=== PATIENT | female | born 1950 | race Caucasian/White ===

== ENCOUNTER 2022-09-28 10:45 | Inpatient (IN) | payer MEDICARE, OTHER ==
[~2022-09-28] VITALS: Ht 170.2 cm; Wt 83.0 kg
[2022-09-28] MEDS ORDERED: ACET-2267 PO (11:11)
[2022-09-28] MEDS ORDERED: SUCR1TAB PO (11:11)
[2022-09-28] MEDS ORDERED: MELO7.5T46 PO (11:11)
[2022-09-28] MEDS ORDERED: NF-ZOL12.5 PO (11:11)
[2022-09-28] MEDS ORDERED: CITA40TA13 PO (11:11)
[2022-09-28] MEDS ORDERED: LOPE-175 PO (11:11)
[2022-09-28] MEDS ORDERED: CNC1KV IM (11:11)
[2022-09-28] MEDS ORDERED: TRAM50TA3 PO (11:11)
[2022-09-28] MEDS ORDERED: FERR-74 PO (11:11)
[2022-09-28] MEDS ORDERED: ALPR1TAB7 PO (11:11)
[2022-09-28] MEDS ORDERED: NALO4SPR NS (11:11)
[2022-09-28] MEDS ORDERED: OMEP40CA6 PO (11:11)
[2022-09-28] MEDS ORDERED: ATOR40TA70 PO (11:11)
[2022-09-28] MEDS ORDERED: GBPN600T PO (11:11)
[2022-09-28] MEDS ORDERED: ONDA4TAB11 SL (11:11)
[2022-09-28] MEDS ORDERED: DOCU100C37 PO (11:11)
[2022-09-28] MEDS ORDERED: CHOL200074 PO (11:11)
[2022-09-28] MEDS ORDERED: ASPI-1238 PO (11:11)
[2022-09-28] MEDS ORDERED: HYDR-3817 PO (11:11)
[2022-09-28] MEDS ORDERED: MONT-40 PO (11:11)
[2022-09-28] MEDS ORDERED: TIZA-186 PO (11:11)
[2022-09-28] MEDS ORDERED: MTP25TSR PO (11:11)
--- NOTE | 2022-09-28 12:40 | PM&R Post Admission Assessment ---
PM&R Date of Visit: Sep 28, 2022 Time of Visit: 18:00 History of Present Illness Chief complaint: Right hip replacement HPI: This is a 72-year-old female who presented to inpatient rehab following a slow recovery following right hip replacement by Dr. Acuna. Patient has a history of irritable bowel syndrome and she has had abdominal distention since surgery. She is having a lot of pain and having very slow recovery because of that pain. We will monitor lung status due to history of asthma. She has not had a BM yet. Home meds will be restarted. Past Omsudph-Bmksry-Ybsjfh Hx Past Med/Social Hx: Reviewed Nursing Past Med/Soc Hx, Reviewed and Corrections made Patient Social History Marrital Status: single Employed/Student: retired Alcohol Use: Denies Use Smoking Status: Never a Smoker Past Medical History Surgeries: Orthopedic Respiratory: Asthma Gastrointestinal: Irritable Bowel Musculoskeletal: Arthritis Psychosocial: Depression PM&R Allergy/Meds/Data Review Allergies Coded Allergies: No Allergy Information Available (Unverified , 09/28/22) Home Medications Scheduled Alprazolam (Alprazolam), 1 MG PO HS, (Reported) Aspirin (Aspirin EC), 81 MG PO DAILY, (Reported) Atorvastatin Calcium (Atorvastatin Calcium), 40 MG PO DAILY, (Reported) Cholecalciferol (Vitamin D3) (Vitamin D3), 50 MCG PO DAILY, (Reported) Citalopram Hydrobromide (Citalopram HBr), 40 MG PO DAILY, (Reported) Cyanocobalamin (Cyanocobalamin Injection), 1,000 MCG IM MONTHLY, (Reported) Ferrous Sulfate (Ferrous Sulfate), 325 MG PO DAILY, (Reported) Gabapentin (Gabapentin), 600 MG PO TID, (Reported) Hydrocodone/Acetaminophen (Hydrocodone-Acetamin 7.5-325), 1 EACH PO Q6H, (Reported) Meloxicam (Meloxicam), 7.5 MG PO BIDPC, (Reported) Metoprolol Succinate (Metoprolol Succinate), 25 MG PO DAILY, (Reported) Montelukast Sodium (Montelukast Sodium), 10 MG PO HS, (Reported) Omeprazole (Omeprazole), 40 MG PO DAILY, (Reported) Sucralfate (Sucralfate), 1 GM PO QID, (Reported) Tizanidine HCl (Tizanidine HCl), 4 MG PO TID, (Reported) Zolpidem Tartrate (Zolpidem Tartrate ER), 12.5 MG PO HS, (Reported) Scheduled PRN Acetaminophen (Tylenol Extra Strength), 500 MG PO Q4H PRN for PAIN-MILD (1-4) OR TEMPATURE, (Reported) Docusate Sodium (Docusate Sodium), 100 MG PO BID PRN for CONSTIPATION-1ST LINE, (Reported) Loperamide HCl (Imodium A-D), 4 MG PO Q6H PRN for DIARRHEA, (Reported) Naloxone HCl (Narcan), 1 SPRAY NS UD PRN for OPIOID OVERDOSE, (Reported) Ondansetron (Ondansetron Odt), 4 MG SL Q8H PRN for NAUSEA/VOMITING-1ST LINE, (Reported) Tramadol HCl (Tramadol HCl), 50-100 MG PO Q6H PRN for PAIN-MODERATE (5-7), (Reported) Current Medications Current Medications Reviewed Review of Systems Constitutional: see HPI, malaise, weakness Gastrointestinal: constipation Musculoskeletal: joint pain Physical Exam Physical Exam Vital Signs Capillary Refill : Height, Weight, BMI Height: '" Weight: lbs. oz. kg; BMI Method: General Appearance: No Apparent Distress, WD/WN, Chronically ill Eyes: Bilateral Eye Normal Inspection, Bilateral Eye PERRL HEENT: PERRL/EOMI, Normal ENT Inspection, Pharynx Normal Neck: Full Range of Motion, Normal Inspection, Non Tender, Supple, Carotid Bruit Respiratory: Chest Non Tender, Lungs Clear, Normal Breath Sounds, No Accessory Muscle Use, No Respiratory Distress Cardiovascular: Regular Rate, Rhythm, No Edema, No Gallop, No JVD, No Murmur, Normal Peripheral Pulses Gastrointestinal: Normal Bowel Sounds, No Organomegaly, No Pulsatile Mass, Non Tender, Soft Back: Normal Inspection, No CVA Tenderness, No Vertebral Tenderness Extremity: Normal Capillary Refill, Normal Inspection, Normal Range of Motion (Limited range of motion right leg), Non Tender, No Calf Tenderness, No Pedal Edema Neurologic/Psychiatric: Alert, Oriented x3, No Motor/Sensory Deficits, Normal Mood/Affect, Abnormal Gait, Motor Weakness ( right leg weakness) Skin: Normal Color, Warm/Dry Lymphatic: No Adenopathy PM&R Medical Assessment & Plan REHAB/MEDICAL ASSESSMENT AND PLAN: REHAB IMPAIRMENT GROUP: Right hip replacement slow recovery ETIOLOGIC DIAGNOSIS: right hip replacement slow recovery The comorbidities that impact the patients function and/or functional outcome by: slow recovery, increased pain, asthma, IBS REHAB PLAN: The patient is being admitted to our comprehensive inpatient rehabilitation facility and can tolerate the intensity of service consisting of at least: 180 minutes of therapy a day, 5 out of 7 days a week Rehab treatment will consist of: PT and OT will focus on regaining function with use of assistive devices in order to regain independence in ADLs and ambulation in order to go home The patient/family has a good understanding of our discharge process and will benefit from an interdisciplinary inpatient rehabilitation program. The patient has potential to make improvement and is in need of at least two of the following multidisciplinary therapies including but not limited to physical, occupational, speech, and prosthetics and orthotics. Additionally the patient will need services from respiratory, nutritional services, wound care, psychology, etc. (Customize this to each patient). Given the patients complex condition and risk of further medical complications, rehabilitation services cannot be safely or effectively provided at a lower level of care such as a group home facility. BARRIERS TO DISCHARGE: slow recovery and pain ESTIMATED LOS: 7 days DISPOSITION: home RELEVANT CHANGES SINCE PREADMISSION SCREENING: I have compared the patients medical and functional status at the time of the preadmission screening and there are: no changes PROGNOSIS: good REHABILITATION GOALS: 1. PT and OT will focus on regaining function with use of assistive devices in order to regain independence in ADLs and ambulation in order to go home All the above goals were reviewed with the patient and he/she is in agreement. By signing this document, I acknowledge that I have personally performed a full physical examination on this patient within 24 hours of admission to this inpatient rehabilitation facility and have determined the patient to be able to tolerate the above course of treatment at an intensive level for a reasonable period of time. I will be completing a detailed individualized Plan of Care for this patient by day #4 of the patients stay based upon the Preadmission Screen, the Post-Admission Evaluation, and the therapy evaluations. Admission Dx/Comorbidities: (1) Status post right hip replacement ICD Codes: Z96.641 - Presence of right artificial hip joint Assessment/Plan Assessment and Plan Assess & Plan/Chief Complaint Assessment: Status post right hip replacement Hospital Irritable bowel syndrome with flare Postop constipation Slow recovery due to pain Depression Postop acute blood loss anemia Plan: Supportive care Pain control Home meds PT and OT SHANNAN CALZADA DO Sep 28, 2022 12:39
[2022-09-28] MEDS ORDERED: DOCUSATE SODIUM 100 MG (COLACE) CAP PO PRN ×2 (12:45→16:15)
[2022-09-28] MEDS ORDERED: diphenhydrAMINE 25 MG TAB (BENADRYL) PO PRN (12:45)
[2022-09-28] MEDS ORDERED: MELATONIN 3 MG TABLET PO PRN (12:45)
[2022-09-28] MEDS ORDERED: ONDANSETRON 4 MG (ZOFRAN) ORAL DISSOLVE TAB PO PRN (12:45)
[2022-09-28] MEDS ORDERED: ALPRAZolam 0.25 MG (XANAX) TAB PO PRN (12:45)
[2022-09-28] MEDS ORDERED: FLEET ENEMA ADULT 1 EA BTL PR PRN (12:45)
[2022-09-28] MEDS ORDERED: BISACODYL 10 MG SUPP (DULCOLAX) PR PRN (12:45)
[2022-09-28] MEDS ORDERED: LOPERAMIDE 2 MG (IMODIUM) TABLET PO PRN ×2 (12:45→16:15)
[2022-09-28] MEDS ORDERED: ACETAMINOPHEN 325 MG TABLET PO PRN (12:45)
[2022-09-28] MEDS ORDERED: CALCIUM CARBONATE 500 MG (TUMS) TAB.CHEW PO PRN (12:45)
[2022-09-28] MEDS ORDERED: guaiFENesin/CODEINE (ROBITUSSIN AC) 10ML UDC PO PRN (12:45)
[2022-09-28 14:15] VITALS: BP 95/54
--- OUTSIDE RECORDS SUMMARY | 2022-09-28 14:38 | XMS REPORT | Summary of Care ---
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 Plant Operator Name Role Phone Carlos Simpson MD PCP Reason for Visit * Auth/Cert (Routine) Diagnoses / Procedures Referred By Contact Referred To Conta ct Specialty Diagnoses Avascular necrosis Unilateral primary osteoarthritis, right hip Procedures SC ARTHRP ACETBLR/PROX FEM PROSTC AGRFT/ALGRFT HIP ARTHROPLASTY TOTAL ANTERIOR APPROACH Johnson Acuna MD [address] [place] [address] [facility] Main Operating Room [address] [facility] [place] [address] Perioperative Referral ID Status Reason Start Date Expiration Visits Vi sits Date Requested Authorized [id number] 1 1 Encounter Details Care Team Description Date Type Department Johnson Acuna MD [address] [facility] [place] [phone] Arrived 09/27/2022 [facility] Specialty Hos pital Encounter [facility] Radiology [address] [facility] [place] [phone] Allergies Comments Active Allergy Reactions Severity Noted Date Iodine Hives High 05/04/2013 documented as of this encounter (statuses as of 09/28/2022) Medications End Date Status Medication Sig Dispensed Refills Start Date Suspended ALPRAZolam (XANAX) 1 mg Take 1 mg by 0 tablet mouth daily at bedtime. Suspended citalopram (CeleXA) 40 mg Take 40 mg by 0 tablet mouth daily. Suspended atorvastatin (LIPITOR) 40 Take 40 mg by 0 mg tablet mouth daily. Suspended montelukast (SINGULAIR) Take 10 mg by 0 10 mg tablet mouth daily at bedtime. Suspended metoprolol succinate Take 25 mg by 0 (TOPROL XL) 25 mg mouth daily. Extended Release 24 hour tablet Suspended ferrous sulfate 325 mg Take 325 mg 0 (65 mg iron) tablet by mouth daily. Suspended naloxone (NARCAN) 4 EMERGENCY USE 2 Each 3 01/31 mg/spray [place], ONLY: 1 Non-Aerosol Administer 1 spray (4 mg) in one nostril one time. May repeat in alternating nostrils every 2-3 min until responsive or EMS arrives. Additional Information Suspended tiZANidine 4 mg tablet Take 4 mg by 0 06/09/ 02 mouth 3 times 2 daily. Suspended ondansetron (ZOFRAN ODT) Take 1 Tablet 30 Tablet 0 4 mg Tablet, Rapid (4 mg) by 3 Dissolve mouth every 8 hours as needed for Nausea/Emesis . Dissolve tablet on top of tongue, then swallow with saliva. Additional Information Suspended meloxicam (MOBIC) 15 mg Take 15 mg by 0 tablet mouth daily. 3 Suspended omeprazole (PriLOSEC) 40 Take 40 mg by 0 06/21 mg Capsule, Delayed mouth daily. 3 Release(E.C.) Suspended sucralfate (CARAFATE) 1 Take 1 Gram 0 gram tablet by mouth 4 3 times daily. Suspended zolpidem (AMBIEN) 10 mg Take 12.5 mg 0 tablet by mouth 3 daily at bedtime. Suspended traMADoL (ULTRAM) 50 mg Take 50 mg by 0 tablet mouth every 6 3 hours as needed. Suspended gabapentin (NEURONTIN) Take 600 mg 0 06/06/ 02 600 mg tablet by mouth 3 3 times daily. Suspended docusate sodium 100 mg Take 100 mg 0 capsule by mouth 2 times daily as needed. Suspended cyanocobalamin, vitamin by Injection 0 B-12, (VITAMIN B-12 route every INJECTION) 30 days. Suspended mupirocin (BACTROBAN) 2% Apply with 22 Gram 0 0 Ointment q-tip inside 3 both sides of the nose twice a day for the seven days leading up to surgery. Additional Information Suspended HYDROcodone-acetaminophen Take 1 Tablet 0 (NORCO) 7.5-325 mg Tablet by mouth 3 every 6 hours. Suspended cholecalciferol (vitamin Take 2,000 0 D3) 50 mcg (2,000 unit) Units by tablet mouth daily. Suspended loperamide 2 mg tablet Take 4 mg by 0 mouth every 6 hours as needed for Diarrhea/Loos e Stools. Suspended acetaminophen (TYLENOL) Take 500 mg 0 500 mg tablet by mouth every 4 hours as needed for Pain, Mild / Temperature. documented as of this encounter (statuses as of 09/28/2022) Active Problems Problem Noted Date Polypharmacy 09/26/2021 Syncope 09/24/2021 Avascular necrosis 09/24/2021 Acute cystitis without hematuria 02/14/2021 Multiple falls 02/14/2021 Right shoulder pain 02/14/2021 Bilateral hip pain 02/14/2021 Impaired mobility and ADLs 02/14/2021 Generalized muscle weakness 02/14/2021 Arthritis 02/14/2021 documented as of this encounter (statuses as of 09/28/2022) Immunizations Name Administration Dates Next Due INFLUENZA VACCINE 02/17/2021 QUADRIVALENT 6 MOS UP PF IM documented as of this encounter Social History Date Tobacco Use Types Packs/Day Years Used Smoking Tobacco: Former Smokeless Tobacco: Never Comments Alcohol Use Standard Drinks/Week No 0 (1 standard drink = 0.6 o z pure alcohol) Sex Assigned at Date Recorded Not on file Date Recorded COVID-19 Exposure Response 09/27/2022 3:38 PM CDT In the last 10 days, have you been in contact with N o / Unsure someone who was confirmed or suspected to have Coronavirus/COVID-19? documented as of this encounter Last Filed Vital Signs Not on filedocumented in this encounter Plan of Treatment Care Team Description Date Type Specialty Johnson Acuna MD [address] [place] [id number] 10/13/2022 Office Visit Orthopedic Surgery Health Maintenance Due Date Last Done Comments DTAP/TDAP/TD VACCINES (1 01/26/1968 - Tdap) Traditional Medicare 01/26/1968 (ACO) Annual Wellness Visit COLORECTAL SCREENING 1994 Colorectal Cancer 1994 Screening FIT-DNA Q 3 years 1994 FIT/FOBT Q 1 year 1994 Flex Sig/CT Colonography 1994 Q 5 years ZOSTER VACCINE (1 of 2) 1999 OSTEOPOROSIS SCREENING 2014 PNEUMOCOCCAL VACCINE 65+ 2014 YEARS (1 - PCV) INFLUENZA VACCINE (#1) 2021 02/17/2021 BREAST CANCER SCREENING 06/22/2023 06/21/2022, 12/23/2013, 07/29/2012 documented as of this encounter Medical Devices Device Identifier Shelf Expiration Date Model / Serial / L ot Implanted Type Area Manufactur er [id number] 06/12/2026 6570-0-736 / / [id number] Head Fem V40 Biolox Delta Hip Right: Hip STRY KER- 6570-0-736 - [id number] ORTHOPAEDI Implanted: Qty: 1 on 09/27/2022 by Johnson Hansen MD at [facility] [id number] 05/28/2027 [id number] / / [id number] Screw Trident 2 6.5x20mm Lprfl Hex Screw Right: Hip [place]- 6143-8725 - [id number] ORTHOPAEDI Implanted: Qty: 1 on 09/27/2022 by Johnson Hansen MD at [facility] documented as of this encounter Procedures Comments Procedure Name Priority Date/Time Associated Diag nosis XR HIP 2 OR 3 VIEWS RT Routine 09/27/2022 General ized pain 3:18 PM CDT documented in this encounter Results * XR HIP 2 OR 3 VIEWS RT (09/27/2022 3:18 PM CDT) Modality Anatomical Region Laterality Computed Radiography Lower Extremity Anatomical Location / Laterality Collection Method / Volume Angelique ection Time Received Time Specimen (Source) 09/27/2022 3:33 PM CDT Impressions 09/27/2022 3:33 PM CDT Impression: Postoperative changes from total hip arthroplasty without complication or fracture. Electronically Signed By: Gustavo Liang MD, Signed On: 09/27/2022 3:33 PM, FRANCOIS Narrative 09/27/2022 3:33 PM CDT EXAM: Two views of the right hip. INDICATIONS: Post hip arthroplasty. COMPARISON: Earlier same day FINDINGS: AP and crosstable lateral views. There are postoperative changes from total hip arthroplasty. Associated postoperative soft tissue gas. Hardware is properly positioned. No fracture or dislocation. Visualized pelvis is unremarkable. Chronic left total hip arthroplasty. Procedure Note Masood Liang MD - 09/27/2022 EXAM: Two views of the right hip. INDICATIONS: Post hip arthroplasty. COMPARISON: Earlier same day FINDINGS: AP and crosstable lateral views. There are postoperative changes from total hip arthroplasty. Associated postoperative soft tissue gas. Hardware is properly positioned. No fracture or dislocation. Visualized pelvis is unremarkable. Chronic left total hip arthroplasty. Impression: Postoperative changes from total hip arthroplasty without complication or fracture. Electronically Signed By: Gustavo Liang MD, Signed On: 09/27/2022 3:33 PM, FRANCOIS Johnson Carmona DI[facility]AG[facility] ORDERABL TRENT Acuna MD documented in this encounter Visit Diagnoses Diagnosis Laboratory procedure - Primary Laboratory examination, unspecified Generalized pain documented in this encounter Insurance Type Payer Benefit Subscriber ID Effective Phone Address Plan / Dates Group Medicare MEDICARE MEDICARE [id number] 2013- [phone] PART A AND Present B Supplemental [employer] [id number] 2020-P [phone] [address] [place] [address] documented as of this encounter Advance Directives For more information, please contact: [phone] Date Inactivated Comments Code Status Date Activated Full Code 09/27/2022 2:54 PM Date Inactivated Comments Code Status Date Activated 09/27/2022 2:54 PM Full Code 09/27/2022 10:32 AM 09/26/2021 7:14 PM Full Code 09/24/2021 12:02 PM 02/17/2021 7:41 PM Full Code 02/14/2021 2:26 PM Care Teams Start Date End Date Slurry Plant Operator Relationship Specialty 12/31/14 Carlos Simpson MD PCP - General Family [address] [place] [address] documented as of this encounter
--- OUTSIDE RECORDS SUMMARY | 2022-09-28 14:38 | XMS REPORT | Summary of Care ---
Author Author [employer] [facility] Address Unknown Phone Unavailable Care Team Providers Care Health Companion Name Role Phone Carlos Simpson MD PCP Reason for Visit * Auth/Cert (Routine) Diagnoses / Procedures Referred By Contact Referred To Conta ct Specialty Diagnoses Avascular necrosis Unilateral primary osteoarthritis, right hip Procedures [place] ARTHRP ACETBLR/PROX FEM PROSTC AGRFT/ALGRFT HIP ARTHROPLASTY TOTAL ANTERIOR APPROACH Johnson Acuna MD [address] [place] [phone] [facility] Main Operating Room [address] [facility] [place] [address] Perioperative Referral ID Status Reason Start Date Expiration Visits Vi sits Date Requested Authorized [id number] 1 1 Encounter Details Care Team Description Date Type Department Johnson Acuna MD [address] [facility] [place] [phone] Arrived 09/27/2022 [facility] Specialty Hos pital Encounter [facility] Radiology [address] [facility] [place] [phone] Allergies Comments Active [...] EMERGENCY USE 2 Each 3 01/31 mg/spray [place], ONLY: 1 Non-Aerosol Administer 1 spray (4 [...] Description Date Type Specialty Johnson Acuna MD [address] [place] [phone] 10/13/2022 Office Visit Orthopedic Surgery Health Maintenance [...] L ot Implanted Type Area Manufactur er [id number] 06/12/2026 6570-0-736 / / [id number] Head Fem V40 Biolox Delta Hip Right: Hip STRY KER- 6570-0-736 - [id number] ORTHOPAEDI Implanted: Qty: 1 on 09/27/2022 by Johnson Hansen MD at [facility] [id number] 05/28/2027 [id number] / / [id number] Screw Trident 2 6.5x20mm Lprfl Hex Screw Right: Hip [place]- [id number] - [id number] ORTHOPAEDI Implanted: Qty: 1 on 09/27/2022 by Johnson Hansen MD at [facility] documented as of this encounter Procedures Comments Procedure Name Priority Date/Time Associated Diag nosis XR PELVIS 1 OR 2 VW Routine 09/27/2022 Generalize d pain 3:17 PM CDT documented in this encounter Results * XR PELVIS 1 OR 2 VW (09/27/2022 3:17 PM CDT) Modality Anatomical Region Laterality Computed Radiography Pelvis Anatomical Location / Laterality Collection Method / Volume Angelique ection Time Received Time Specimen (Source) 09/27/2022 3:31 PM CDT Impressions 09/27/2022 3:31 PM CDT IMPRESSION: Postoperative changes from right total hip arthroplasty without fracture or complication. Electronically Signed By: Gustavo Liang MD, Signed On: 09/27/2022 3:31 PM, CHELEILIGato Narrative 09/27/2022 3:31 PM CDT EXAM: Single view pelvis INDICATIONS: Intraoperative imaging during total hip arthroplasty COMPARISON: No priors. Findings: Sequential AP views of the pelvis during right total hip arthroplasty with 11 images submitted. Hardware is appropriately positioned. No fracture or dislocation. Postsurgical soft tissue gas within the soft tissues. Chronic left total hip arthroplasty. Procedure Note Masood Liang MD - 09/27/2022 EXAM: Single view pelvis INDICATIONS: Intraoperative imaging during total hip arthroplasty COMPARISON: No priors. Findings: Sequential AP views of the pelvis during right total hip arthroplasty with 11 images submitted. Hardware is appropriately positioned. No fracture or dislocation. Postsurgical soft tissue gas within the soft tissues. Chronic left total hip arthroplasty. IMPRESSION: Postoperative changes from right total hip arthroplasty without fracture or complication. Electronically Signed By: Gustavo Liang MD, Signed On: 09/27/2022 3:31 PM, FRANCOIS Johnson Carmona DIAGNOSTIC IMAGING ORDERABL TRENT Acuna MD documented in this encounter Visit Diagnoses Diagnosis Generalized pain documented in this encounter Insurance Type Payer Benefit Subscriber ID Effective Phone Address Plan / Dates Group Medicare MEDICARE MEDICARE [id number] 2013- [phone] PART A AND Present B Supplemental [employer] [id number] 2020-P [address] [place] [address] documented as of this encounter Advance Directives For more information, please contact: [phone] Date Inactivated Comments Code Status Date Activated Full Code 09/27/2022 2:54 PM Date Inactivated Comments Code Status Date Activated 09/27/2022 2:54 PM Full Code 09/27/2022 10:32 AM 09/26/2021 7:14 PM Full Code 09/24/2021 12:02 PM 02/17/2021 7:41 PM Full Code 02/14/2021 2:26 PM Care Teams Start Date End Date Health Companion Relationship Specialty 12/31/14 Carlos Simpson MD PCP - General Family [address] [place] [address] documented as of this encounter
--- OUTSIDE RECORDS SUMMARY | 2022-09-28 14:38 | XMS REPORT | Summary of Care ---
Author Author [employer] Address Unknown Phone Unavailable Care Team Providers Care Offset Assistant Press Operator Name Role Phone Carlos Simpson MD PCP Encounter Details Care Team Description Date Type Department Johnson Acuna MD [address] [place] [address] Arrived 09/06/2022 [facility] Pre Admission Encounter Testing [address] [place] [address] Allergies Comments Active Allergy Reactions Severity Noted Date Iodine Hives High 05/04/2013 documented as of this encounter (statuses as of 09/07/2022) Medications End Date Status Medication Sig Dispensed Refills Start Date Active ALPRAZolam (XANAX) 1 mg Take 1 mg by 0 tablet mouth daily at bedtime. Active citalopram (CeleXA) 40 mg Take 40 mg by 0 tablet mouth daily. Active atorvastatin (LIPITOR) 40 Take 40 mg by 0 mg tablet mouth daily. Active montelukast (SINGULAIR) Take 10 mg by 0 10 mg tablet mouth daily at bedtime. Active metoprolol succinate Take 25 mg by 0 (TOPROL XL) 25 mg mouth daily. Extended Release 24 hour tablet Active ferrous sulfate 325 mg Take 325 mg 0 (65 mg iron) tablet by mouth daily. Active naloxone (NARCAN) 4 EMERGENCY USE 2 Each 3 01/31 mg/spray [place], ONLY: 1 Non-Aerosol Administer 1 spray (4 mg) in one nostril one time. May repeat in alternating nostrils every 2-3 min until responsive or EMS arrives. Active tiZANidine 4 mg tablet Take 4 mg by 0 06/09/ 02 mouth 3 times 2 daily. Active ondansetron (ZOFRAN ODT) Take 1 Tablet 30 Tablet 0 4 mg Tablet, Rapid (4 mg) by 3 Dissolve mouth every 8 hours as needed for Nausea/Emesis . Dissolve tablet on top of tongue, then swallow with saliva. Active meloxicam (MOBIC) 15 mg Take 15 mg by 0 tablet mouth daily. 3 Active omeprazole (PriLOSEC) 40 Take 40 mg by 0 06/21 mg Capsule, Delayed mouth daily. 3 Release(E.C.) Active sucralfate (CARAFATE) 1 Take 1 Gram 0 gram tablet by mouth 4 3 times daily. Active zolpidem (AMBIEN) 10 mg Take 12.5 mg 0 tablet by mouth 3 daily at bedtime. Active traMADoL (ULTRAM) 50 mg Take 50 mg by 0 tablet mouth every 6 3 hours as needed. Active gabapentin (NEURONTIN) Take 600 mg 0 02 600 mg tablet by mouth 3 3 times daily. Active docusate sodium 100 mg Take 100 mg 0 capsule by mouth 2 times daily as needed. Active cyanocobalamin, vitamin by Injection 0 B-12, (VITAMIN B-12 route every INJECTION) 30 days. Active mupirocin (BACTROBAN) 2% Apply with 22 Gram 0 0 Ointment q-tip inside 3 both sides of the nose twice a day for the seven days leading up to surgery. Active HYDROcodone-acetaminophen Take 1 Tablet 0 / (NORCO) 7.5-325 mg Tablet by mouth 3 every 6 hours. Active cholecalciferol, Vitamin Take 2,000 0 D3, 50 mcg (2,000 unit) Units by Tablet mouth daily. Active loperamide (IMODIUM) 2 mg Take 4 mg by 0 Tablet mouth every 6 hours as needed for Diarrhea/Loos e Stools. 09/06/2022 Discontinued albuterol sulfate 90 Take 2 Puffs 0 mcg/Actuation inhaler by inhalation every 6 hours as needed for Shortness of Breath. 09/06/2022 Discontinued (Alternate ther apy prescribed) HYDROcodone-acetaminophen Take 1 Tablet 20 Tablet 0 (NORCO) 5-325 mg by mouth 3 tabletIndications: every 4 hours Chronic hip pain, as needed for unspecified laterality Pain, Moderate. Max Daily Amount: 6 Tablets 09/06/2022 Discontinued CALCIUM CARBONATE-VITAMIN Take by 0 D3 ORAL mouth. documented as of this encounter (statuses as of 09/07/2022) Active Problems Problem Noted Date Polypharmacy 09/26/2021 Syncope 09/24/2021 AVN (avascular necrosis of bone) 09/24/2021 Acute cystitis without hematuria 02/14/2021 Multiple falls 02/14/2021 Right shoulder pain 02/14/2021 Bilateral hip pain 02/14/2021 Impaired mobility and ADLs 02/14/2021 Generalized muscle weakness 02/14/2021 Arthritis 02/14/2021 documented as of this encounter (statuses as of 09/07/2022) Immunizations Name Administration Dates Next Due INFLUENZA VACCINE 02/17/2021 QUADRIVALENT 6 MOS UP PF IM documented as of this encounter Social History Date Tobacco Use Types Packs/Day Years Used Smoking Tobacco: Former Smokeless Tobacco: Never Tobacco Cessation: Counseling Given: Not Answered Comments Alcohol Use Standard Drinks/Week No 0 (1 standard drink = 0.6 o z pure alcohol) Sex Assigned at Date Recorded Not on file Date Recorded COVID-19 Exposure Response 08/14/2022 9:44 AM CDT In the last 10 days, have you been in contact with N o / Unsure someone who was confirmed or suspected to have Coronavirus/COVID-19? documented as of this encounter Last Filed Vital Signs Reading Time Taken Comments Vital Sign 145/74 09/06/2022 2:25 PM CDT Blood Pressure 62 09/06/2022 2:25 PM CDT Pulse 36.8 C (98.2 F) 09/06/2022 2:25 PM CDT Temperature 16 09/06/2022 2:25 PM CDT Respiratory Rate 95% 09/06/2022 2:25 PM CDT Oxygen Saturation - - Inhaled Oxygen Concentration 83.5 kg (184 lb) 09/06/2022 2:25 PM CDT Weight 161.3 cm (5' 3.5") 09/06/2022 2:25 PM CDT Height 32.08 09/06/2022 2:25 PM CDT Body Mass Index documented in this encounter Discharge Instructions * Discharge Instructions* Angela SpencerCHERYL rob - 09/06/2022 2:23 PM CDT THINGS TO REMEMBER ABOUT YOUR SURGERY ARRIVAL INSTRUCTIONS: [x] Rebecca will call with your arrival time a few days prior to surgery. [x] Enter through the Main Entrance on August. SKIN PREP: Do not shave your surgical site at least five days before surgery. The morning and the night before surgery take a shower using antimicrobial soap (Hibiclens), after your shower dry completely, clean your surgical site with a C hloraprep swab after the evening shower, let it air dry. The morning of surgery take a shower and dry completely, clean your surgical sit e with the second Chloraprep swab and let it air dry. Do not wash the Chloraprep solution from your skin. Take extra precautions in caring for your skin in the time leading up to your menon rgery. Cuts, scrapes, mayes and broken skin near your surgical site could lead to the cancellation of your procedure. DIET/FLUID INSTRUCTIONS: [x] Nothing to eat or drink after midnight. FAILURE TO FOLLOW COULD MEAN CANCELLATION. ON THE DAY OF SURGERY: You will be asked to arrive 1.5-2 hours prior to your scheduled surgery time. You will change into a hospital gown and your belongings will be placed in a bag and locked in a locker, your curran will be pinned on your hospital bed and stay with you until you are taken to your room. Once in Pre-Op, a nurse will start your IV and anesthesia will review your medic al history. Prior to surgery, the surgeon will be able to answer any additional questions or concerns. You may have a visitor stay overnight in your room. Bring comfortable and loose fitting clothes or pajamas so the nursing staff can easily view your surgical site, if allowed you will be able to wear your own pal thes and will be assisted with dressing if needed. Bring your own personal care items (toothbrush, toothpaste, etc.) DISCHARGE [x] Someone must be available on your day of discharge to take you home and be o f assistance as needed (please arrange this prior to admission) MEDICATIONS Stop all over the counter vitamins/herbal supplements and CBD products 2 WEEKS p rior to surgery. Stop any NSAID'S (ie: aspirin, aleve, ibuprofen, advil, diclofenac, meloxicam, e tc..) 2 WEEKS prior to surgery. Tylenol is okay to take up until the night before surgery. The morning of surgery take METOPROLOL, OMEPRAZOLE AND CITALOPRAM ONLY WITH A SM ALL SIP OF WATER. CONTINUE ALL OTHER PRESCRIPTION MEDICATIONS DIRECTED UP UNTIL THE NIGHT BEFOR E SURGERY. THE DAY OF SURGERY BRING: [x] Walker (no handbrakes, no seat) DO NOT BRING ANY HOME MEDICATIONS/VITAMINS OR PAIN MEDICATIONS WITH YOU ON THE D AY OF SURGERY. IF YOU HAVE QUESTIONS: Call Jeannie at [phone] from 8:00 a.m. to 5:00 p.m. Sun through or email at [email or web address] documented in this encounter Plan of Treatment Care Team Description Date Type Specialty Johnson Acuna MD [address] [place] [address] Avascular necrosis 09/27/2022 Hospital Perioperative Encounter Johnson Acuna MD [address] [place] [phone] HIP ARTHROPLASTY TOTAL ANTERIOR APPROACH 09/27/2022 Surgery Perioperative Date/Time Name Priority Associated Diagnose s 09/27/2022 10:30 AM CDT HIP ARTHROPLASTY TOTAL ANTERIOR APPROACH Avascular necrosis Health Maintenance Due Date Last Done Comments Annual Wellness 01/26/1969 Visit-Medicare DTAP/TDAP/TD VACCINES (1 01/26/1968 - Tdap) COLORECTAL SCREENING 1994 Colorectal Cancer 1994 Screening FIT-DNA Q 3 years 1994 FIT/FOBT Q 1 year 1994 Flex Sig/CT Colonography 1994 Q 5 years ZOSTER VACCINE (1 of 2) 1999 OSTEOPOROSIS SCREENING 2014 PNEUMOCOCCAL VACCINE 65+ 2014 YEARS (1 - PCV) INFLUENZA VACCINE (#1) 2021 02/17/2021 BREAST CANCER SCREENING 06/22/2023 06/21/2022, 12/23/2013, 07/29/2012 documented as of this encounter Procedures Comments Procedure Name Priority Date/Time Associated Diag nosis CBC WITH DIFFERENTIAL Routine 09/06/2022 Fatigue, unspecified type 2:12 PM CDT PTT Routine 09/06/2022 Pain of right l ower 2:12 PM CDT extremity PROTIME-INR Routine 09/06/2022 Pain of right l ower 2:12 PM CDT extremity TYPE AND SCREEN Routine 09/06/2022 Encounter for blood 2:12 PM CDT typing COMPREHENSIVE METABOLIC Routine 09/06/2022 Fatigu e, unspecified type PANEL 2:12 PM CDT documented in this encounter Results * (ABNORMAL) CBC WITH DIFFERENTIAL (09/06/2022 2:12 PM CDT) Pathologist Signature Component Value Ref Test Method Analysis Performed A t Range Time WBC 9.4 4.0 - 09/06/2022 [facility] 11.0 4:45 PM [facility] [place] K/uL CDT RBC 3.59 (L) 4.20 - 09/06/2022 [facility] 5.40 4:45 PM [facility] [place] M/uL CDT HEMOGLOBIN 11.0 (L) 12.5 - 09/06/2022 [facility] 16.0 4:45 PM [facility] [place] g/dL CDT HEMATOCRIT 35.0 (L) 37.0 - 09/06/2022 [facility] 47.0 % 4:45 PM [facility] [place] CDT MCV 97.5 78.0 - 09/06/2022 [facility] 100.0 fL 4:45 PM [facility] [place] CDT MCH 30.6 27.0 - 09/06/2022 [facility] 34.0 pg 4:45 PM [facility] [place] CDT MCHC 31.4 31.0 - 09/06/2022 [facility] 37.0 4:45 PM [facility] [place] g/dL CDT RDW 14.1 12.0 - 09/06/2022 [facility] 15.0 % 4:45 PM [facility] [place] CDT RDW-STDEV 50.4 (H) 37.1 - 09/06/2022 [facility] 48.7 fL 4:45 PM [facility] [place] CDT PLATELETS 253 150 - 09/06[facility]2022 [facility] 450 K/uL 4:45 PM [facility] [place] CDT MPV 10.2 9.3 - 09/06/2022 [facility] 12.4 fL 4:45 PM [facility] [place] CDT NEUTROPHILS 50 31 - 76 09/06/2022 [facility] % 4:45 PM [facility] [place] CDT LYMPHOCYTES 38 24 - 44 09/06/2022 [facility] % 4:45 PM [facility] [place] CDT MONOCYTES 7 2 - 11 % 09/06/2022 [facility] 4:45 PM [facility] [place] CDT EOSINOPHILS 4 0 - 6 % 09/06/2022 [facility] 4:45 PM [facility] [place] CDT BASOPHILS 0 0 - 2 % 09/06/2022 [facility] 4:45 PM [facility] [place] CDT IMMATURE 0 0 - 2 % 09/06/2022 [facility] GRANULOCYTES 4:45 PM [facility] [place] CDT NEUTROPHIL ABSOLUTE 4.67 1.80 - 09/06/2022 [facility] 7.70 4:45 PM [facility] [place] K/uL CDT LYMPHOCYTE ABSOLUTE 3.59 1.00 - 09/06/2022 [facility] 4.80 4:45 PM [facility] [place] K/uL CDT MONOCYTE ABSOLUTE 0.68 0.10 - 09/06/2022 [facility] 1.30 4:45 PM [facility] - [place] K/uL CDT EOSINOPHIL ABSOLUTE 0.41 0.00 - 09/06/2022 [facility] 0.70 4:45 PM [facility] - [place] K/uL CDT BASOPHILS ABSOLUTE 0.04 0.00 - 09/06/2022 [facility] 0.20 4:45 PM [facility] - [place] K/uL CDT IMMATURE 0.03 0.00 - 09/06/2022 [facility] GRANULOCYTES 0.10 4:45 PM [facility] [place] IN ABSOLUTE K/uL CDT Anatomical Location / Laterality Collection Method / Volume Angelique ection Time Received Time Specimen (Source) Venipuncture / Unknown 09/06/2022 2:12 PM CDT 0 09/06/2022 2:25 PM CDT Blood Johnson Carmona HEMATOLOGY ORDERABLES Armand DRAKE City/State/ZIP Code Phone Number Performing Address Organization AMANDA D[place] [address] [facility] CLIA # [id number] [facility] [place] [address] [facility] [place] [address] [facility] CLIA # [id number] [facility] - [place] [address] * (ABNORMAL) COMPREHENSIVE METABOLIC PANEL (09/06/2022 2:12 PM CDT) Pathologist Signature Component Value Ref Test Method Analysis Performed A t Range Time SODIUM 142 136 - 09/06/2022 [facility] 145 5:13 PM [facility] [place] mmol/L CDT POTASSIUM 4.3 3.5 - 09/06/2022 [facility] 5.1 5:13 PM [facility] - [place] mmol/L CDT CHLORIDE 105 98 - 107 09/06/2022 [facility] mmol/L 5:13 PM [facility] - [place] CDT CO2 24 22 - 29 09/06/2022 [facility] mmol/L 5:13 PM [facility] - [place] CDT CALCIUM 9.4 8.8 - 09/06/2022 [facility] 10.2 5:13 PM [facility] - [place] mg/dL CDT BUN 27 (H) 8 - 23 09/06/2022 [facility] mg/dL 5:13 PM [facility] - [place] CDT CREATININE 1.41 (H) 0.51 - 09/06/2022 [facility] 0.95 5:13 PM [facility] - [place] mg/dL CDT Comment: The GFR result is not clinically significant on patients <18 or >70 years of age. GLUCOSE 91 74 - 99 09/06/2022 [facility] mg/dL 5:13 PM [facility] - [place] CDT TOTAL PROTEIN 7.1 6.4 - 09/06/2022 [facility] 8.3 g/dL 5:13 PM [facility] - [place] CDT ALBUMIN 4.0 4.0 - 09/06/2022 [facility] 4.9 g/dL 5:13 PM [facility] - [place] CDT BILIRUBIN TOTAL 0.3 <=1.2 09/06/2022 [facility] mg/dL 5:13 PM [facility] - [place] CDT ALKALINE PHOSPHATASE 84 35 - 104 09/06/2022 [facility] U/L 5:13 PM [facility] - [place] CDT AST 27 0 - 32 09/06/2022 [facility] U/L 5:13 PM [facility] - [place] CDT ALT 23 0 - 33 09/06/2022 [facility] U/L 5:13 PM [facility] - [place] CDT GFR 39 mL/min/1 09/06/2022 [facility] .73 sq 5:13 PM [facility] [place] meter CDT Comment: eGFR calculated with 2020 CKD-EPI equation. Vegetarian diet, extremely high or low muscle mass, and may affect results. Cystatin C with Glomerular Filtration Rate is a suitable alternative for these patients. ANION GAP 13 4 - 13 09/06/2022 [facility] mmol/L 5:13 PM [facility] [place] CDT Anatomical Location / Laterality Collection Method / Volume Angelique ection Time Received Time Specimen (Source) Venipuncture / Unknown 09/06/2022 2:12 PM CDT 0 09/06/2022 2:25 PM CDT Blood Johnson Carmona CHEMISTRY ORDERABLES [place] DRAKE City/State/ZIP Code Phone Number Performing Address Organization AMANDA D[place] [address] [facility] CLIA # [id number] [facility] [place] [address] [facility] AMANDA [place] [address] [facility] CLIA # [id number] [facility] - [place] [address] * PROTIME-INR (09/06/2022 2:12 PM CDT) Pathologist Signature Component Value Ref Test Method Analysis Performed A t Range Time PROTIME 13.4 11.8 - 09/06/2022 [facility] 14.6 5:33 PM [facility] [place] Seconds CDT INR 1.0 0.9 - 09/06/2022 [facility] 1.2 5:33 PM [facility] - [place] CDT Anatomical Location / Laterality Collection Method / Volume Angelique ection Time Received Time Specimen (Source) Venipuncture / Unknown 09/06/2022 2:12 PM CDT 0 09/06/2022 2:25 PM CDT Blood Narrative [facility] - [place] - 09/06/2022 5:33 PM CDT Therapeutic range: 2.0 - 3.5 Johnson Carmona HEMATOLOGY ORDERABLES Armand DRAKE City/State/ZIP Code Phone Number Performing Address Organization AMANDA Dos Santos [phone] [facility] CLIA # [id number] SERVICES - [place] [address] [place] [address] [facility] CLIA # [id number] SERVICES - [place] [address] [employer] * PTT (09/06/2022 2:12 PM CDT) Pathologist Signature Component Value Ref Test Method Analysis Performed A t Range Time PTT 31.8 25.0 - 09/06/2022 [facility] 35.0 5:33 PM [facility] - [place] seconds CDT Anatomical Location / Laterality Collection Method / Volume Angelique ection Time Received Time Specimen (Source) Venipuncture / Unknown 09/06/2022 2:12 PM CDT 0 09/06/2022 2:25 PM CDT Blood [facility] - [place] - 09/06/2022 5:33 PM CDT PTT Therapeutic range 68 - 103 sec Johnson Carmona HEMATOLOGY ORDERPOLO Acuna MD [facility]/State/ZIP Code Phone Number Performing Address Organization AMANDA Dos Santos [phone] [facility] CLIA # [id number] SERVICES - [place] [address] [place] [address] [facility] CLIA # [id number] SERVICES - [place] [address] * TYPE AND SCREEN (09/06/2022 2:12 PM CDT) Pathologist Signature Component Value Ref Test Method Analysis Performed A t Range Time ABO GROUP O 09/06/2022 [facility] 5:34 PM [facility] [place] CDT RH (D) TYPE Positive 09/06/2022 [facility] 5:34 PM [facility] [place] CDT ANTIBODY SCREEN Negative 09/06/2022 [facility] 5:34 PM SERVICES -- [place] CDT Anatomical Location / Laterality Collection Method / Volume Angelique ection Time Received Time Specimen (Source) Venipuncture / Unknown 09/06/2022 2:12 PM CDT 0 09/06/2022 2:25 PM CDT Blood Johnson Carmona BLOOD BANK ORDERABLES Arm[place] DRAKE City/State/ZIP Code Phone Number Performing Address Organization AMANDA D[place] [address] [facility] CLIA # [id number] SERVICES -- [place] [address] AMANDA [place] [address] [facility] CLIA # [id number] SERVICES -- [place] [address] documented in this encounter Visit Diagnoses Diagnosis Encounter for blood typing Pain of right lower extremity Fatigue, unspecified type Avascular necrosis Aseptic necrosis of bone, site unspecif ied documented in this encounter Insurance Type Payer Benefit Subscriber ID Effective Phone Address Plan / Dates Group Medicare MEDICARE MEDICARE [id number] 2013- [phone] PART A AND Present B Supplemental [employer] [id number] 2020-P [address] [place] [address] documented as of this encounter Advance Directives For more information, please contact: [phone] Date Inactivated Comments Code Status Date Activated 09/26/2021 7:14 PM Full Code 09/24/2021 12:02 PM Date Inactivated Comments Code Status Date Activated 02/17/2021 7:41 PM Full Code 02/14/2021 2:26 PM Care Teams Start Date End Date Offset Assistant Press Operator Relationship Specialty 10/1/15 Carlos Simpson MD PCP - General [facility] [address] [facility] [place] [address] documented as of this encounter
--- OUTSIDE RECORDS SUMMARY | 2022-09-28 14:38 | XMS REPORT | Summary of Care ---
Author Author Isabella Oliver [facility] Address Unknown Phone Unavailable Care Team Providers Care Link Machine Operator Name Role Phone Carlos Simpson MD PCP Encounter Details Care Team Description Date Type Department Johnson Acuna MD [address] [place] [address] Arrived 09/06/2022 [facility] Specialty Hos pital Encounter [facility] Radiology [address] [place] [address] Allergies Comments Active Allergy Reactions Severity [...] EMERGENCY USE 2 Each 3 01/31 mg/spray [place], ONLY: 1 Non-Aerosol Administer 1 spray (4 [...] Description Date Type Specialty Johnson Acuna MD [address] [place] [phone] Avascular necrosis 09/27/2022 Hospital Perioperative Encounter Johnson Acuna MD [address] [place] [phone] HIP ARTHROPLASTY TOTAL ANTERIOR APPROACH 09/27/2022 Surgery [...] Name Priority Date/Time Associated Diag nosis XR CHEST PA AND LATERAL 2 Routine 09/06/2022 Pain of right lower VW 1:53 PM CDT extremity documented in this encounter Results * XR CHEST PA AND LATERAL 2 VW (09/06/2022 1:53 PM CDT) Modality Anatomical Region Laterality Computed Radiography Chest Anatomical Location / Laterality Collection Method / Volume Angelique ection Time Received Time Specimen (Source) 09/06/2022 1:57 PM CDT Impressions 09/06/2022 1:57 PM CDT IMPRESSION: No acute cardiopulmonary disease. Electronically Signed By: Gustavo Liang MD, Signed On: 09/06/2022 1:57 PM, [email or web address] Narrative 09/06/2022 1:57 PM CDT EXAM: Two view chest x-ray. REASON FOR EXAM: Preop right hip surgery. COMPARISON: No prior. FINDINGS: Two views. Elevation of the right hemidiaphragm. Bandlike opacities within the inferior right middle lobe likely subsegmental atelectasis given the diaphragm elevation. Small calcified granulomas in the right upper lobe. No pleural effusion or pneumothorax. The cardiomediastinal contours are normal. The osseous structures are unremarkable. Procedure Note Masood Liang MD - 09/06/2022 EXAM: Two view chest x-ray. REASON FOR EXAM: Preop right hip surgery. COMPARISON: No prior. FINDINGS: Two views. Elevation of the right hemidiaphragm. Bandlike opacities within the inferior right middle lobe likely subsegmental atelectasis given the diaphragm elevation. Small calcified granulomas in the right upper lobe. No pleural effusion or pneumothorax. The cardiomediastinal contours are normal. The osseous structures are unremarkable. IMPRESSION: No acute cardiopulmonary disease. Electronically Signed By: Gustavo Liang MD, Signed On: 09/06/2022 1:57 PM, [email or web address] Johnson Carmona DIAGNOSTIC IMAGING ORDERABL TRENT Acuna MD documented in this encounter Visit Diagnoses Diagnosis Pain of right lower extremity Avascular necrosis Aseptic necrosis of bone, site unspecif ied documented in this encounter Insurance Type Payer Benefit Subscriber ID Effective Phone Address Plan / Dates Group Medicare MEDICARE MEDICARE [id number] 2013- [phone] PART A AND Present B Supplemental [employer] [id number] 2020-P [address] [place] [address] documented as of this encounter Advance Directives For more information, please contact: [phone] Date Inactivated Comments Code Status Date Activated 09/26/2021 7:14 PM Full Code 09/24/2021 12:02 PM Date Inactivated Comments Code Status Date Activated 02/17/2021 7:41 PM Full Code 02/14/2021 2:26 PM Care Teams Start Date End Date Link Machine Operator Relationship Specialty 12/31/14 Carlos Simpson MD PCP - General Family [address] [facility] [place] [id number] documented as of this encounter
--- NOTE | 2022-09-28 15:08 | Occupational Therapy Eval ---
OT Evaluation-General/PLF Medical Diagnosis Admission Date Sep 28, 2022 at 14:15 Medical Diagnosis: R anterior MICHELLE w/ AVN Onset Date: Sep 27, 2022 Therapy Diagnosis Therapy Diagnosis: weakness with UEs and mobility to perform ADLS Precautions Precautions/Isolations: Fall Prevention, Standard Precautions Comments Anterior approach MICHELLE precautions-patient educated at evaluation and recalls w/ OT 3/3 Weight Bear Status Weight Bearing Restriction: Weight Bearing/Tolerated Location Restriction: R LE RUE limited ROM and painful MMT d/t fall 2 years ago Medical History Pertinent Medical History: Arthritis Additional Medical History Depression , migraines, R knee surgery, frequent falls, RUE shoulder injury 1 y/o w/ conservative treatment Current History Transfer from outside facility [facility] Reviewed History: Yes Social History Home: Assisted Living ([facility] ) Current Living Status: Alone Entry Into Home: Level Entry Meals are brought to room, uses whirlpool tub and requires assistance to use ADL-Prior Level of Function SCALE: Activities may be completed with or without assistive devices. 3-Edzdizboiy-smsfckt completes the activity by him/herself with no assistance from a helper. 5-Set-up or Clean-up Assistance-helper sets up or cleans up; patient completes activity. [place] assists only prior to or following the activity. 4-Supervision or Touching Assistance-helper provides verbal cues and/or touching/steadying and/or contact guard assistance as patient completes activity. Assistance may be provided throughout the activity or intermittently. 3-Partial/Moderate Assistance-helper does LESS THAN HALF the effort. [place] lifts, holds or supports trunk or limbs, but provides less than half the effort. 2-Substantial/Maximal Assistance-helper does MORE THAN HALF the effort. [place] lifts or holds trunk or limbs and provides more than half the effort. 3-Suprvznlt-eqrmhy does ALL the effort. Patient does none of the effort to complete the activity. Or, the assistance of 2 or more helpers is required for the patient to complete the activity. If activity was not attempted, code reason: 7-Patient Refused. 9-Not Applicable-not attempted and the patient did not perform the activity before the current illness, exacerbation or injury. 10-Not Attempted due to Environmental Limitations-(lack of equipment, weather restraints, etc.). 88-Not Attempted due to Medical Conditions or Safety Concerns. Self Care: Independent Functional Cognition: Independent DME/Equipment: Bath Chair, Grab Bars, Reachers, Shower, Shower Hose Metaphysicist, Tub (whirlpool), Toilet/Riser DME/Equipment Comments uses 4ww at [facility], ACUTE PT recommended FWW, SEE PT ARU for recommendations Drive Self: No OT Current Status Mental Status/Objective Patient Orientation: Person, Place, Time, Situation Current Glasses/Contacts: Yes (brittany uses them) Hearing Aids: No Dentures/Partials: No Hand Dominance: Left Upper Extremity ROM RUE limited d/t old injury, 90 degrees flex/abd, IR/ER WFLS. LUE WNLS Upper Extremity Coordination INTACT F[facility]/G[facility] Upper Extremity Strength RUE +3/5 within range, LUE 4/5 ADL-Treatment Eating (QC): 6 Oral Hygiene (QC): 4 Shower/Bathe Self (QC): 4 Upper Body Dressing (QC): 5 Lower Body Dressing (QC): 4 On/Off Footwear (QC): 4 Toileting Hygiene (QC): 4 Education OT Patient Education: Correct positioning, Modified ADL techniques, Progress toward Goal/Update tx plan, Purpose of tx/functional activities, Reviewed precautions, Rehab process, Safety issues, Transfer techniques, Use of adapted equipment Teaching Recipient: Patient, Family (daughter present for interview process of OT eval) Teaching Methods: Demonstration, Discussion Response to Teaching: Verbalize Understanding, Reinforcement Needed BIMS CAM BIMS Expression of Ideas and Wants: Without Difficulty Understanding Verbal Content: Understands Brief Interview/Mental Status: No IRF ELPIDIO BIMS: IRF ELPIDIO BIMS Response (Comments) Value Repitition of Three Words Three 3 Recalls Socks Yes, No Cue Required 2 Recalls Blue Yes, No Cue Required 2 Recalls Bed Yes, No Cue Required 2 Year Correct 3 Month Accurate Within 5 Days 2 Day Correct 1 Total 15 Patient Normally Able to Recal: Current Session, That he/she in a hsp Should Staff Asses. Mental St.: No CAM Mental Status Change/Baseline: 0 Inattention: 0 Disorganized thinkin Altered level of consciousness: 0 OT Short Term Goals Short Term Goals Time Frame: Oct 04, 2022 Eatin Oral hygiene: 6 Upper body dressin OT Car Stower Goals Alf Goals Time Frame: Oct 13, 2022 Eating (QC): 6 Oral Hygiene (QC): 6 Toileting Hygiene (QC): 6 Shower/Bathe Self (QC): 6 Upper Body Dressing (QC): 6 Lower Body Dressing (QC): 6 On/Off Footwear (QC): 6 1=Demonstrate adherence to instructed precautions during ADL tasks. 2=Patient will verbalize/demonstrate understanding of assistive devices/modifications for ADL. 3=Patient will improve strength/tolerance for activity to enable patient to perform ADL's. OT Education/Plan Problem List/Assessment Assessment: Decreased Activ Tolerance, Decreased UE Strength, Impaired Self- Care Skills, Restricted Funct UE ROM Discharge Recommendations Plan/Recommendations: Continue POC Treatment Plan/Plan of Care Treatment,Training & Education: Yes Patient would benefit from OT for education, treatment and training to promote independence in ADL's, mobility, safety and/or upper extremity function for ADL's. Plan of Care: ADL Retraining, Concurrent Therapy, Functional Mobility, Group Exercise/Act as Ind, UE Funct Exercise/Act Treatment Duration: Oct 13, 2022 Frequency: At least 5 of 7 days/Wk (IRF) Estimated Hrs Per Day: 1.5 hours per day Agreement: Yes Rehab Potential: Good Time Start Time: 14:25 Stop Time: 14:40 DATE: Sep 28, 2022 Total Time Billed (hr/min): 15 Billed Treatment Time EVM 15 min RADHA BAGLEY OT Sep 28, 2022 15:08
--- NOTE | 2022-09-28 15:18 | Physical Therapy Evaluation ---
PT Evaluation-General Medical Diagnosis Admission Date Sep 28, 2022 at 14:15 Medical Diagnosis: AVN, S/P R MICHELLE Onset Date: Sep 27, 2022 Therapy Diagnosis Therapy Diagnosis: Decreased weakness; Decreased functional mobility Precautions Precautions/Isolations: Fall Prevention, Standard Precautions WBAT R LE R MICHELLE anterior precautions Weight Bear Status Right Lower Extremity: Right Weight Bearing/Tolerated Left Lower Extremity: Left Full Weight Bearing Referral Physician: Kyle Reason for Referral: Evaluation/Treatment Medical History Pertinent Medical History: Arthritis Additional Medical History Arthritis, Weakness, Falls, Asthma, Depression, Hyperlipidemia, Migraines, Cholecystectomy, L MICHELLE 12 years ago, Hysterectomy Current History S/P R MICHELLE anterior approach on 09/27/2022; Admitted to ARU on 09/28/2022 Reviewed History: Yes Social History Home: Assisted Living Current Living Status: Alone Entry Into Home: Level Entry PT Steps Into Home: 0 PT Steps Inside Home: 0 Pt lives at an [facility] with level entry. Walk-in shower with SC, GBs, and tall toilet Prior Prior Level of Function SCALE: Activities may be completed with or without assistive devices. 1-Pvioorvxeq-gwudzpp completes the activity by him/herself with no assistance from a helper. 5-Set-up or Clean-up Assistance-helper sets up or cleans up; patient completes activity. [place] assists only prior to or following the activity. 4-Supervision or Touching Assistance-helper provides verbal cues and/or touching/steadying and/or contact guard assistance as patient completes activity. Assistance may be provided throughout the activity or intermittently. 3-Partial/Moderate Assistance-helper does LESS THAN HALF the effort. [place] lifts, holds or supports trunk or limbs, but provides less than half the effort. 2-Substantial/Maximal Assistance-helper does MORE THAN HALF the effort. [place] lifts or holds trunk or limbs and provides more than half the effort. 0-Aejwpmgnw-cgxkcp does ALL the effort. Patient does none of the effort to complete the activity. Or, the assistance of 2 or more helpers is required for the patient to complete the activity. If activity was not attempted, code reason: 7-Patient Refused. 9-Not Applicable-not attempted and the patient did not perform the activity befo re the current illness, exacerbation or injury. 10-Not Attempted due to Environmental Limitations-(lack of equipment, weather re straints, etc.). 88-Not Attempted due to Medical Conditions or Safety Concerns. Bed Mobility: 6 Transfers (B,C,W/C): 6 Gait: 6 Stairs: 9 Wheelchair Mobility: 9 Indoor Mobility (Ambulation): Independent Stairs: Not Applicalbe Prior Devices Use: Walker At PLOF, pt was Ind with the 4WW for functional mobility and ADLs. Pt reports avoiding steps in the community, at PLOF. PT Evaluation-Current Subjective Pt is agreeable to PT Pain Numeric Pain Scale: 7 Location: Right Location Body Site: Hip Section J - Health Conditions 1. Rarely or not at all 2. Occasionally 3. Frequently 4. Almost constantly 8. Unable to answer Pain Effect on Sleep: 2 Pain Interference with Therapy: 3 Pain Interference w/Day-to-Day: 2 Pt/Family Goals Safely return to [facility] Objective Patient Orientation: Person, Place, Time, Situation ROM/Strength ROM Upper Extremities See OT note ROM Lower Extremities WFL Strength Upper Extremities See OT note Strength Lower Extremities B LE MMT = 3+/5 Integumentary/Posture Integumentary See nurses note Bowel Incontinence: No Bladder Incontinence: No Sensory Vision: Wears Glasses (at times ) Hearing: Functional Hand Dominance: Left Sensation Right Upper Extremit: Intact Sensation Left Upper Extremity: Intact Sensation Right Lower Extremit: Intact Sensation Left Lower Extremity: Intact Transfers Roll Left & Right (QC): 3 (Min A) Sit to Lying (QC): 3 (Min A) Lying to Sitting/Side of Bed(Q: 4 (SBA ) Sit to Stand (QC): 4 (CGA ) Chair/Ysn-ps-Xmiew Xfer(QC): 4 (CGA ) Toilet Transfer (QC): 4 (CGA ) Car Transfer (QC): 4 (CGA ) Gait Does the Patient Walk?: Yes Mode of Locomotion: Walk Anticipated Mode of Locomotion: Walk Walk 10 feet (QC): 4 (CGA ) Walk 50 ft with 2 Turns(QC): 4 (CGA ) Walk 150 ft (QC): 4 (CGA ) Walking 10ft/uneven surface-QC: 4 (CGA ) Gait Assistive Device: FWW Wheelchair Training Does the Pt Use a Wheelchair?: No Wheel 50 ft with 2 turns (QC): 9 Wheel 150 ft (QC): 9 Type of Wheelchair: N/A Stairs 1 Step (curb) (QC): 4 (CGA ) 4 Steps (QC): 4 (CGA ) 12 Steps (QC): 4 (CGA ) Walking Assistive Device: Walker Balance Sitting Static: Good Sitting Dynamic: Good Standing Static: Fair Standing Dynamic: Fair Picking up an Object (QC): 4 (CGA ) Special Test Comments KU standing balance score = 3/5 (goal = 4+/5) Treatment PT eval completed Assessment/Needs Pt tolerated PT well with good effort Rehab Potential: Good Post Rehab Potential-Barriers: Weakness Equipment Needs FWW? PT Tugger Operator Goals Tugger Operator Goals PT Tugger Operator Goals Time Frame: Oct 06, 2022 Roll Left to Right (QC): 6 (Mod I with functional mobility ) Sit to Lying (QC): 6 (Mod I with functional mobility ) Lying-Sitting on Side/Bed(QC): 6 (Mod I with functional mobility ) Sit to Stand (QC): 6 (Mod I with functional mobility ) Chair/Pdc-hf-Kogsj Xfer(QC): 6 (Mod I with functional mobility ) Toilet/Commode Transfer (QC): 6 (Mod I with functional mobility ) Car Transfer (QC): 6 (Mod I with functional mobility ) Does the Patient Walk: Yes Walk 10 feet (QC): 6 (Mod I with functional mobility ) Walk 10ft-Uneven Surface(QC): 6 (Mod I with functional mobility ) Walk 50ft with 2 Turns (QC): 6 (Mod I with functional mobility ) Walk 150 ft (QC): 6 (Mod I with functional mobility ) Does the Pt use WC or Scooter?: No Wheel 50 feet with 2 turns (QC: 9 Type: N/A Wheel 150 feet: 9 Type: N/A 1 Step (curb) (QC): 6 (Mod I with functional mobility ) 4 Steps (QC): 6 (Mod I with functional mobility ) 12 Steps (QC): 6 (Mod I with functional mobility ) Picking up an Object (QC): 6 (Mod I with functional mobility ) KU standing balance goal = 4+/5 PT Plan Problem List Problem List: Activity Tolerance, Functional Strength, Safety, Balance, Gait, Transfer, Bed Mobility, ROM Treatment/Plan Treatment Plan: Continue Plan of Care Treatment Plan: Bed Mobility, Concurrent Therapy, Education, Functional Activity Nan, Functional Strength, Group Therapy, Gait, Safety, Therapeutic Exercise, Transfers Treatment Duration: Oct 06, 2022 Frequency: At least 5 of 7 days/Wk (IRF) Estimated Hrs Per Day: 1.5 hours per day Patient and/or Family Agrees t: Yes Safety Risks/Education Patient Education: Gait Training, Transfer Techniques, Steps, Reviewed Precautions, Correct Positioning, Safety Issues Teaching Recipient: Patient Teaching Methods: Demonstration, Discussion Response to Teaching: Verbalize Understanding, Return Demonstration, Reinforcement Needed Discharge Recommendations Therapy Discharge Recommendati: Assisted Living Equpiment Recommendations-D/C: Front Wheeled Walker Discharge Status/Home Program Cont per POC Barriers to Progress Weakness Target Placement [facility] (PLOF) Time Time In: 1440 Time Out: 1455 DATE: Sep 28, 2022 Total Billed Treatment Time: 15 Total Billed Treatment 15 min 1 PT JULIAN PEREZ PT Sep 28, 2022 15:18
[2022-09-28] MEDS ORDERED: NON-FORMULARY MEDICATION 1 EA EA (Naloxone HCl (Narcan) 1 SPRAY) NS PRN (16:15)
[2022-09-28] MEDS ORDERED: ONDANSETRON 4 MG (ZOFRAN) ORAL DISSOLVE TAB SL PRN (16:15)
[2022-09-28] MEDS ORDERED: ACETAMINOPHEN 500 MG TAB (TYLENOL) PO PRN (16:15)
--- NOTE | 2022-09-28 16:16 | Physical Therapy Daily Note ---
PT Daily Note-Current Subjective Pt was in WC upon arrival out in front of her room with OT. OT/PT co treat 1455- 1610 due to skill of 2 clinicians required which a occupational rehabilitation aide could not preform in order to coordinate UE/LEs, decrease fall risk, and due to pt's limitations in strength, mobility, transfers and pain. Ot focused on UE plamement cues for sequencing and safety and ADL's PT focused on LE placement, gross overall movement and transfers/mobility Pain Section J - Health Conditions 1. Rarely or not at all 2. Occasionally 3. Frequently 4. Almost constantly 8. Unable to answer Pain Effect on Sleep: 2 Pain Interference with Therapy: 3 Pain Interference w/Day-to-Day: 2 Mental Status Patient Orientation: Person, Place, Time, Situation Transfers SCALE: Activities may be completed with or without assistive devices. 0-Aumlhgrlio-wvawwqn completes the activity by him/herself with no assistance from a helper. 5-Set-up or Clean-up Assistance-helper sets up or cleans up; patient completes activity. [place] assists only prior to or following the activity. 4-Supervision or Touching Assistance-helper provides verbal cues and/or touching/steadying and/or contact guard assistance as patient completes activi ty. Assistance may be provided throughout the activity or intermittently. 3-Partial/Moderate Assistance-helper does LESS THAN HALF the effort. [place] lifts, holds or supports trunk or limbs, but provides less than half the effort. 2-Substantial/Maximal Assistance-helper does MORE THAN HALF the effort. [place] lifts or holds trunk or limbs and provides more than half the effort. 7-Zjhkakomz-hkntca does ALL the effort. Patient does none of the effort to complete the activity. Or, the assistance of 2 or more helpers is required for the patient to complete the activity. If activity was not attempted, code reason: 7-Patient Refused. 9-Not Applicable-not attempted and the patient did not perform the activity before the current illness, exacerbation or injury. 10-Not Attempted due to Environmental Limitations-(lack of equipment, weather restraints, etc.). 88-Not Attempted due to Medical Conditions or Safety Concerns. Weight Bearing Right Lower Extremity: Right Weight Bearing/Tolerated Left Lower Extremity: Left Full Weight Bearing Exercises Seated Therapy Exercises: Ankle pumps, Sit to stand, Long arc quads, Hip flexion, Kicking activity, Hamstring Curls, Glut set Treatments PT working on ambulation safety dynamic standing balance and dynamic sitting balance. pt does require VC for safety with AD use. pt is CGA with ambulation and transfers this day. Seated ther-ex in all lanes of motion available where preform with VC for correct mm movement of 30% for 2 sets x 10 each Assessment Current Status: Good Progress PT Territory Sales Manager Goals [facility] Goals PT Territory Sales Manager Goals Time Frame: Oct 06, 2022 Roll Left & Right (QC): 6 (Mod I with functional mobility ) Sit to Lying (QC): 6 (Mod I with functional mobility ) Lying-Sitting on Side/Bed(QC): 6 (Mod I with functional mobility ) Sit to Stand (QC): 6 (Mod I with functional mobility ) Chair/Olw-xp-Ofzvt Xfer(QC): 6 (Mod I with functional mobility ) Toilet Transfer (QC): 6 (Mod I with functional mobility ) Car Transfer (QC): 6 (Mod I with functional mobility ) Does the Patient Walk: Yes Walk 10 feet (QC): 6 (Mod I with functional mobility ) Walk 50ft with 2 Turns (QC): 6 (Mod I with functional mobility ) Walk 150 ft (QC): 6 (Mod I with functional mobility ) Walking 10ft on Uneven Surface: 6 (Mod I with functional mobility ) 1 Step (curb) (QC): 6 (Mod I with functional mobility ) 4 Steps (QC): 6 (Mod I with functional mobility ) 12 Steps (QC): 6 (Mod I with functional mobility ) Picking up an Object (QC): 6 (Mod I with functional mobility ) Does the Pt use WC or Scooter?: No Wheel 50 feet with 2 turns (QC: 9 Type: N/A Wheel 150 feet: 9 Type: N/A PT Plan Treatment/Plan Treatment Plan: Continue Plan of Care Treatment Plan: Bed Mobility, Concurrent Therapy, Education, Functional Activity Nan, Functional Strength, Group Therapy, Gait, Safety, Therapeutic Exercise, Transfers Treatment Duration: Oct 06, 2022 Frequency: At least 5 of 7 days/Wk (IRF) Estimated Hrs Per Day: 1.5 hours per day Patient and/or Family Agrees t: Yes Time Time In: 1455 Time Out: 1610 DATE: Sep 28, 2022 Total Billed Treatment Time: 75 Total Billed Treatment 1 FA x 3 EX x 2 Co treat with OT from [id number] for 75 mins Sonia Cox GAS WELDING MACHINE OPERATOR Sep 28, 2022 16:16
--- NOTE | 2022-09-28 16:21 | Occupational Ther Daily Note ---
OT Current Status-Daily Note Subjective Took over care from OTR/L. Pt agrees to therapy. Co-treat with PT ([id number]), skills of 2 clinicians required to decrease fall risk, increase safe mobility while maintaining anterior hip precautions and decreasing pain. PT focusing on transfers, dynamic standing balance, ambulation and education on hip precautions while OT focusing on functional mobility, B UE placement during mobility, ADLs and education on hip precautions. Mental Status/Objective Patient Orientation: Person, Place, Time, Situation ADL-Treatment Pt declines shower, agrees to sponge bath. Pt ambulates to sinks using FWW with CGA. Pt requests to use toilet, using FWW and verbal cues for safe transfer to toilet. CGA for toilet transfer and toileting. Pt returns to sink to complete oral care and sponge bath at sink. SBA to complete oral care in standing. SBA to complete sponge bath in sitting, assist to cleanse B feet. SBA to complete UBD. Min A to complete LBD, assist to thread L foot then completes by self. Max A for footwear, pt states that she does not wear socks at home only slip on shoes. CGA for toileting and toilet transfer. Therapy Code Descriptions/Definitions Functional [place] Measure: 0=Not Assessed/NA 4=Minimal Assistance 1=Total Assistance 5=Supervision or Setup 2=Maximal Assistance 6=Modified [place] 3=Moderate Assistance 7=Complete IndependenceSCALE: Activities may be completed with or without assistive devices. 3-Rjdgwkakgn-vzkmjvu completes the activity by him/herself with no assistance from a helper. 5-Set-up or Clean-up Assistance-helper sets up or cleans up; patient completes activity. [place] assists only prior to or following the activity. 4-Supervision or Touching Assistance-helper provides verbal cues and/or touching/steadying and/or contact guard assistance as patient completes activity. Assistance may be provided throughout the activity or intermittently. 3-Partial/Moderate Assistance-helper does LESS THAN HALF the effort. [place] lifts, holds or supports trunk or limbs, but provides less than half the effort. 2-Substantial/Maximal Assistance-helper does MORE THAN HALF the effort. [place] lifts or holds trunk or limbs and provides more than half the effort. 4-Gkxcnnqfl-sajjqg does ALL the effort. Patient does none of the effort to complete the activity. Or, the assistance of 2 or more helpers is required for the patient to complete the activity. If activity was not attempted, code reason: 7-Patient Refused. 9-Not Applicable-not attempted and the patient did not perform the activity before the current illness, exacerbation or injury. 10-Not Attempted due to Environmental Limitations-(lack of equipment, weather restraints, etc.). 88-Not Attempted due to Medical Conditions or Safety Concerns. Other Treatment Pt demonstrated good hand strength and WFL of B UE's. See OT eval for full B UE AROM and strength. After therapy, pt sitting in recliner with call light/phone in reach. All needs met in room. OT Short Term Goals Short Term Goals Time Frame: Oct 04, 2022 Eatin Oral hygiene: 6 Upper body dressin OT Vp Treasurer Goals [facility] Goals Time Frame: Oct 13, 2022 Acute change in mental status: 0 Inattention: 0 Disorganized thinkin Altered level of consciousness: 0 Eating (QC): 6 Oral Hygiene (QC): 6 Toileting Hygiene (QC): 6 Shower/Bathe Self (QC): 6 Upper Body Dressing (QC): 6 Lower Body Dressing (QC): 6 On/Off Footwear (QC): 6 1=Demonstrate adherence to instructed precautions during ADL tasks. 2=Patient will verbalize/demonstrate understanding of assistive devices/modifica tions for ADL. 3=Patient will improve strength/tolerance for activity to enable patient to perform ADL's. OT Education/Plan Problem List/Assessment Assessment: Decreased Activ Tolerance, Decreased Safety Aware, Decreased UE Strength, Impaired Funct Balance, Impaired Self-Care Skills Discharge Recommendations Plan/Recommendations: Continue POC Treatment Plan/Plan of Care Patient would benefit from OT for education, treatment and training to promote independence in ADL's, mobility, safety and/or upper extremity function for ADL's. Plan of Care: ADL Retraining, Concurrent Therapy, Functional Mobility, Group Exercise/Act as Ind, UE Funct Exercise/Act Treatment Duration: Oct 13, 2022 Frequency: At least 5 of 7 days/Wk (IRF) Estimated Hrs Per Day: 1.5 hours per day Agreement: Yes Rehab Potential: Good Time Start Time: 14:55 Stop Time: 16:10 DATE: Sep 28, 2022 Total Time Billed (hr/min): 75 Billed Treatment Time 1 visit-FA 3 (45 min) ADL 2 (30 min) co-treat with PT 75 min VANESSA DONNELLY Sep 28, 2022 16:21
[2022-09-28] MEDS: HYDROcodone/APAP 7.5 MG/325 MG (LORTAB, LORCET PLUS) TABLET PO SCH ×2 (16:53→23:07)
[2022-09-28] MEDS: SUCRALFATE 1 GM (CARAFATE) TAB PO SCH ×2 (16:54→20:54)
[2022-09-28] MEDS: MELOXICAM 7.5 MG (MOBIC) TABLET PO SCH (17:03)
[2022-09-28 19:52] VITALS: BP 99/63
[2022-09-28] MEDS: DOCUSATE SODIUM 100 MG (COLACE) CAP PO SCH (20:53)
[2022-09-28] MEDS: SENNA W/DOCUSATE (SENOKOT S) TABLET PO SCH (20:54)
[2022-09-28] MEDS: ZOLPIDEM 5 MG (AMBIEN) TAB PO SCH (20:54)
[2022-09-28] MEDS: MONTELUKAST 10 MG (SINGULAIR) TAB PO SCH (20:54)
[2022-09-28] MEDS: ALPRAZolam 1 MG (XANAX) TAB PO SCH (20:54)
[2022-09-28] MEDS: GABAPENTIN 600 MG (NEURONTIN) TAB PO SCH (20:54)
[2022-09-28] MEDS: polyethylene glycoL POWDER 17 GM (MIRALAX) PACK PO SCH (20:57)
[2022-09-28] MEDS ORDERED: NON-FORMULARY MEDICATION 1 EA EA (Zolpidem Tartrate (Zolpidem Tartrate ER) 12.5 MG) PO SCH (21:00)
[2022-09-29] MEDS: HYDROcodone/APAP 7.5 MG/325 MG (LORTAB, LORCET PLUS) TABLET PO SCH ×4 (05:15→23:05)
[2022-09-29 05:45] LABS: BASOPHILS % (AUTO) 0 % (0-10); EOSINOPHILS % (AUTO) 0 % (0-10); HEMATOCRIT 26 % (35-52); LYMPHOCYTES # (AUTO) 2.7 10^3/uL (1.0-4.0); LYMPHOCYTES % (AUTO) 19 % (12-44); MEAN CORPUSCULAR HEMOGLOBIN 29 pg (25-34); MEAN CORPUSCULAR HGB CONC 31 g/dL (32-36); MEAN CORPUSCULAR VOLUME 94 fL (80-99); MEAN PLATELET VOLUME 9.7 fL (9.0-12.2); MONOCYTES # (AUTO) 1.2 10^3/uL (0.0-1.0); MONOCYTES % (AUTO) 8 % (0-12); NEUTROPHILS # (AUTO) 10.7 10^3/uL (1.8-7.8); NEUTROPHILS % (AUTO) 73 % (42-75); PLATELET COUNT 205 10^3/uL (130-400); WHITE BLOOD COUNT 14.8 10^3/uL (4.3-11.0)
[2022-09-29 06:16] LABS: ALBUMIN 3.4 GM/DL (3.2-4.5); POTASSIUM 4.4 MMOL/L (3.6-5.0)
[2022-09-29 06:17] LABS: CALCIUM 8.8 MG/DL (8.5-10.1)
[2022-09-29 06:20] LABS: BILIRUBIN,TOTAL 0.2 MG/DL (0.1-1.0)
[2022-09-29 06:22] LABS: CREATININE SERUM 1.2 MG/DL (0.60-1.30)
[2022-09-29 07:12] LABS: LYMPHOCYTES % (MANUAL) 15 %; MONOCYTES % (MANUAL) 5 %; NEUTROPHILS % (MANUAL) 80 %; RBC MORPH NORMAL
[2022-09-29 08:00] VITALS: BP 113/53
[2022-09-29] MEDS: DOCUSATE SODIUM 100 MG (COLACE) CAP PO SCH ×2 (08:53→21:23)
[2022-09-29] MEDS: PANTOPRAZOLE 40 MG (PROTONIX) TAB PO SCH (08:53)
[2022-09-29] MEDS: SUCRALFATE 1 GM (CARAFATE) TAB PO SCH ×4 (08:53→21:24)
[2022-09-29] MEDS: VITAMIN D3 25 MCG (1,000 UNITS) TABLET PO SCH (08:53)
[2022-09-29] MEDS: MELOXICAM 7.5 MG (MOBIC) TABLET PO SCH ×2 (08:53→17:30)
[2022-09-29] MEDS: FERROUS SULF 325 MG (IRON) TAB PO SCH (08:53)
[2022-09-29] MEDS: SENNA W/DOCUSATE (SENOKOT S) TABLET PO SCH ×2 (08:53→21:24)
[2022-09-29] MEDS: GABAPENTIN 600 MG (NEURONTIN) TAB PO SCH ×3 (08:54→21:23)
[2022-09-29] MEDS: polyethylene glycoL POWDER 17 GM (MIRALAX) PACK PO SCH ×2 (08:54→21:30)
[2022-09-29] MEDS ORDERED: NON-FORMULARY MEDICATION 1 EA EA (Cholecalciferol (Vitamin D3) (Vitamin D3) 50 MCG) PO SCH (09:00)
[2022-09-29] MEDS ORDERED: NON-FORMULARY MEDICATION 1 EA EA (Omeprazole 40 MG) PO SCH (09:00)
[2022-09-29] MEDS ORDERED: NON-FORMULARY MEDICATION 1 EA EA (Citalopram Hydrobromide (Citalopram HBr) 40 MG) PO SCH (09:00)
--- NOTE | 2022-09-29 09:02 | Physical Therapy Daily Note ---
PT Daily Note-Current Subjective Pt in bed upon arrival and agrees to PT. Says her hip is burning more today. Pain Numeric Pain Scale: 5-Moderate Pain Location: Right Location Body Site: Hip Pain Description: Burning Section J - Health Conditions 1. Rarely or not at all 2. Occasionally 3. Frequently 4. Almost constantly 8. Unable to answer Pain Effect on Sleep: 2 Pain Interference with Therapy: 3 Pain Interference w/Day-to-Day: 2 Mental Status Patient Orientation: Person, Place, Time, Situation Transfers SCALE: Activities may be completed with or without assistive devices. 9-Rzvnqmxvro-ogmgzrc completes the activity by him/herself with no assistance from a helper. 5-Set-up or Clean-up Assistance-helper sets up or cleans up; patient completes activity. [place] assists only prior to or following the activity. 4-Supervision or Touching Assistance-helper provides verbal cues and/or touching/steadying and/or contact guard assistance as patient completes activity. Assistance may be provided throughout the activity or intermittently. 3-Partial/Moderate Assistance-helper does LESS THAN HALF the effort. [place] lifts, holds or supports trunk or limbs, but provides less than half the effort. 2-Substantial/Maximal Assistance-helper does MORE THAN HALF the effort. [place] lifts or holds trunk or limbs and provides more than half the effort. 5-Xlteligyq-fqvkhe does ALL the effort. Patient does none of the effort to complete the activity. Or, the assistance of 2 or more helpers is required for the patient to complete the activity. If activity was not attempted, code reason: 7-Patient Refused. 9-Not Applicable-not attempted and the patient did not perform the activity before the current illness, exacerbation or injury. 10-Not Attempted due to Environmental Limitations-(lack of equipment, weather restraints, etc.). 88-Not Attempted due to Medical Conditions or Safety Concerns. Lying to Sitting/Side of Bed(Q: 3 Sit to Stand (QC): 5 Weight Bearing Right Lower Extremity: Right Weight Bearing/Tolerated Left Lower Extremity: Left Full Weight Bearing Gait Training Does the Patient Walk?: Yes Distance: 150' x2 Walk 10 feet (QC): 5 Walk 50 ft with 2 Turns(QC): 5 Walk 150 ft (QC): 5 Gait Persons Needed: 1 Gait Assistive Device: FWW Stair Training Stair Training: Handrails/: 1 handrail #of Steps: 6 1 Step (curb) (QC): 4 Stairs: Pattern: Step to Exercises Seated Therapy Exercises: Ankle pumps, Long arc quads, Hamstring Curls Seated Reps: 15 Standing: Sit to Stand, Side steps Standing Reps: 15 Treatments Pt able to perform side steps in // bars and sit to stands at mat. Pt amb to stairs in roman and performs stairs w/ step to gait pattern. Pt then practiced stepping up on curb x 4. Pt then returns to room and transfers to recliner w/ all needs met call light nearby and nursing present. Assessment Current Status: Good Progress Pt required verbal and tactile cues for hand and foot placement to amb up stairs and to step onto curb. Pt tolerated treatment well. PT Jail Goals Jail Goals PT Wire Brush Maker Goals Time Frame: Oct 06, 2022 Roll Left & Right (QC): 6 (Mod I with functional mobility ) Sit to Lying (QC): 6 (Mod I with functional mobility ) Lying-Sitting on Side/Bed(QC): 6 (Mod I with functional mobility ) Sit to Stand (QC): 6 (Mod I with functional mobility ) Chair/Agg-nk-Fdcpm Xfer(QC): 6 (Mod I with functional mobility ) Toilet Transfer (QC): 6 (Mod I with functional mobility ) Car Transfer (QC): 6 (Mod I with functional mobility ) Does the Patient Walk: Yes Walk 10 feet (QC): 6 (Mod I with functional mobility ) Walk 50ft with 2 Turns (QC): 6 (Mod I with functional mobility ) Walk 150 ft (QC): 6 (Mod I with functional mobility ) Walking 10ft on Uneven Surface: 6 (Mod I with functional mobility ) 1 Step (curb) (QC): 6 (Mod I with functional mobility ) 4 Steps (QC): 6 (Mod I with functional mobility ) 12 Steps (QC): 6 (Mod I with functional mobility ) Picking up an Object (QC): 6 (Mod I with functional mobility ) Does the Pt use WC or Scooter?: No Wheel 50 feet with 2 turns (QC: 9 Type: N/A Wheel 150 feet: 9 Type: N/A PT Plan Problem List Problem List: Activity Tolerance, Functional Strength, Safety Treatment/Plan Treatment Plan: Continue Plan of Care Treatment Plan: Bed Mobility, Concurrent Therapy, Education, Functional Activity Nan, Functional Strength, Group Therapy, Gait, Safety, Therapeutic Exercise, Transfers Treatment Duration: Oct 06, 2022 Frequency: At least 5 of 7 days/Wk (IRF) Estimated Hrs Per Day: 1.5 hours per day Patient and/or Family Agrees t: Yes Safety Risks/Education Patient Education: Gait Training, Correct Positioning Teaching Recipient: Patient Teaching Methods: Discussion Response to Teaching: Return Demonstration Time Time In: 0800 Time Out: 0900 DATE: Sep 29, 2022 Total Billed Treatment Time: 60 Total Billed Treatment 1, Ex x 2 (35min), FA x 2 (25min) MUNDO ADAMES PTA Sep 29, 2022 09:02
--- NOTE | 2022-09-29 09:19 | Physician Query Clarification ---
PQ-Intro New Diagnosis Admission/Discharge Admission Date: Sep 28, 2022 at 14:15 Discharge Date: Dr. Wright, The medical record reflects the following clinical scenario: History/Risk Factors: s/p RT hip replacement Clinical Findings: s/p Rt hip replacement Treatment: IP Rehab Question: What condition best reflects the above clinical scenario? Please document a response in the Progress Noter or Discharge Summary. 1. Primary osteoarthritis Rt hip 2. Other, with explanation of the clinical findings. 3. Clinically undetermined, no explanation for the clinical findings. PHYSICIAN RESPONSE What condition reflects above: 1 In responding to this query, please exercise your independent professional judgment. The purpose of this communication is to more accurately reflect the complexity of your patients condition. The fact that a question is asked does not imply that any particular answer is desired or expected. Thank you for your timely response to this clarification. Requestors name: Vigrinia THIS PHYSICIAN QUERY FORM IS A PERMANENT PART OF THE MEDICAL RECORD [place] DICKERSON Sep 29, 2022 09:19 SHANNAN WRIGHT DO Sep 29, 2022 10:13
--- NOTE | 2022-09-29 10:26 | Occupational Ther Daily Note ---
OT Current Status-Daily Note Subjective Pt was found in chair in room, alert and agreed to therapy. pt rated pain in R hip/leg 10. Mental Status/Objective Patient Orientation: Person, Place, Time, Situation ADL-Treatment Pt agreed to shower, pt, ambulated to bathroom, with FWW, CGA. Pt was educated on hip precautions before showering to maintain them while donning and doffing clothing. Pt doffed clothing and shoes with SBA. Pt completed shower with supervision. Pt dried self and ambulated with FWW to chair in room to nathan clothing. Pt completed upper body dressing and lower body dressing with set up assist. Pt completed grooming while seated at the chair. Pt was left in chair in room, all needs met, phone and call light in hand. Therapy Code Descriptions/Definitions Functional [place] Measure: 0=Not Assessed/NA 4=Minimal Assistance 1=Total Assistance 5=Supervision or Setup 2=Maximal Assistance 6=Modified [place] 3=Moderate Assistance 7=Complete IndependenceSCALE: Activities may be completed with or without assistive devices. 8-Chafftwzal-bomaxnv completes the activity by him/herself with no assistance from a helper. 5-Set-up or Clean-up Assistance-helper sets up or cleans up; patient completes activity. [place] assists only prior to or following the activity. 4-Supervision or Touching Assistance-helper provides verbal cues and/or touching/steadying and/or contact guard assistance as patient completes activity. Assistance may be provided throughout the activity or intermittently. 3-Partial/Moderate Assistance-helper does LESS THAN HALF the effort. [place] lifts, holds or supports trunk or limbs, but provides less than half the effort. 2-Substantial/Maximal Assistance-helper does MORE THAN HALF the effort. [place] lifts or holds trunk or limbs and provides more than half the effort. 3-Zmukbajhh-emxcge does ALL the effort. Patient does none of the effort to complete the activity. Or, the assistance of 2 or more helpers is required for the patient to complete the activity. If activity was not attempted, code reason: 7-Patient Refused. 9-Not Applicable-not attempted and the patient did not perform the activity before the current illness, exacerbation or injury. 10-Not Attempted due to Environmental Limitations-(lack of equipment, weather restraints, etc.). 88-Not Attempted due to Medical Conditions or Safety Concerns. Education OT Patient Education: Energy conservation, Progress toward Goal/Update tx plan, Purpose of tx/functional activities, Reviewed precautions, Transfer techniques Teaching Recipient: Patient Teaching Methods: Discussion OT Short Term Goals Short Term Goals Time Frame: Oct 04, 2022 Eatin Oral hygiene: 6 Upper body dressin OT Home Care Giver Goals Half-Way Goals Time Frame: Oct 13, 2022 Acute change in mental status: 0 Inattention: 0 Disorganized thinkin Altered level of consciousness: 0 Eating (QC): 6 Oral Hygiene (QC): 6 Toileting Hygiene (QC): 6 Shower/Bathe Self (QC): 6 Upper Body Dressing (QC): 6 Lower Body Dressing (QC): 6 On/Off Footwear (QC): 6 1=Demonstrate adherence to instructed precautions during ADL tasks. 2=Patient will verbalize/demonstrate understanding of assistive devices/modifications for ADL. 3=Patient will improve strength/tolerance for activity to enable patient to perform ADL's. OT Education/Plan Problem List/Assessment Assessment: Decreased Activ Tolerance, Decreased Safety Aware, Decreased UE Strength Discharge Recommendations Plan/Recommendations: Continue POC Treatment Plan/Plan of Care Patient would benefit from OT for education, treatment and training to promote independence in ADL's, mobility, safety and/or upper extremity function for ADL's. Plan of Care: ADL Retraining, Concurrent Therapy, Functional Mobility, Group Exercise/Act as Ind, UE Funct Exercise/Act Treatment Duration: Oct 13, 2022 Frequency: At least 5 of 7 days/Wk (IRF) Estimated Hrs Per Day: 1.5 hours per day Agreement: Yes Rehab Potential: Good Time Start Time: 09:00 Stop Time: 10:00 DATE: Sep 29, 2022 Total Time Billed (hr/min): 60 Billed Treatment Time 1 visit ADL 4 (60) Celsa Abreu COTA Sep 29, 2022 10:26
--- NOTE | 2022-09-29 10:49 | PM&R Progress Note ---
Subjective HPI/CC On Admission Date Seen by Provider: Sep 29, 2022 Time Seen by Provider: 12:30 Subjective/Events-last exam 09/29/2022: Patient doing a lot better Updated her on lab results Patient takes an iron pill daily Pain is pretty well controlled Slow recovery Review of Systems General: Fatigue, Malaise Objective Exam Vital Signs Vital Signs Date Time Temp Pulse Resp B/P (MAP) Pulse Ox O2 Delivery O2 Flow Rate FiO2 09/29/22 10:36 Room Air 09/29/22 08:00 35.7 70 14 113/53 (73) 95 Capillary Refill : General Appearance: No Apparent Distress, WD/WN, Chronically ill HEENT: PERRL/EOMI, Normal ENT Inspection, Pharynx Normal Neck: Full Range of Motion, Normal Inspection, Non Tender, Supple, Carotid Bruit Respiratory: Chest Non Tender, Lungs Clear, Normal Breath Sounds, No Accessory Muscle Use, No Respiratory Distress Cardiovascular: Regular Rate, Rhythm, No Edema, No Gallop, No JVD, No Murmur, Normal Peripheral Pulses Gastrointestinal: Normal Bowel Sounds, No Organomegaly, No Pulsatile Mass, Non Tender, Soft Back: Normal Inspection, No CVA Tenderness, No Vertebral Tenderness Extremity: Normal Capillary Refill, Normal Inspection, Normal Range of Motion (Limited range of motion right leg), Non Tender, No Calf Tenderness, No Pedal Edema Neurologic/Psychiatric: Alert, Oriented x3, No Motor/Sensory Deficits, Normal Mood/Affect, Abnormal Gait, Motor Weakness ( right leg weakness) Skin: Normal Color, Warm/Dry Lymphatic: No Adenopathy Results/Procedures Lab Laboratory Tests 09/29/22 05:32 Patient resulted labs reviewed. FIM Transfers Therapy Code Descriptions/Definitions Functional [place] Measure: 0=Not Assessed/NA 4=Minimal Assistance 1=Total Assistance 5=Supervision or Setup 2=Maximal Assistance 6=Modified [place] 3=Moderate Assistance 7=Complete IndependenceSCALE: Activities may be completed with or without assistive devices. 0-Szdpypykbv-yjilmyv completes the activity by him/herself with no assistance from a helper. 5-Set-up or Clean-up Assistance-helper sets up or cleans up; patient completes activity. [place] assists only prior to or following the activity. 4-Supervision or Touching Assistance-helper provides verbal cues and/or touching/steadying and/or contact guard assistance as patient completes activity. Assistance may be provided throughout the activity or intermittently. 3-Partial/Moderate Assistance-helper does LESS THAN HALF the effort. [place] lifts, holds or supports trunk or limbs, but provides less than half the effort. 2-Substantial/Maximal Assistance-helper does MORE THAN HALF the effort. [place] lifts or holds trunk or limbs and provides more than half the effort. 4-Pkjodmwkm-aysovu does ALL the effort. Patient does none of the effort to complete the activity. Or, the assistance of 2 or more helpers is required for the patient to complete the activity. If activity was not attempted, code reason: 7-Patient Refused. 9-Not Applicable-not attempted and the patient did not perform the activity before the current illness, exacerbation or injury. 10-Not Attempted due to Environmental Limitations-(lack of equipment, weather restraints, etc.). 88-Not Attempted due to Medical Conditions or Safety Concerns. Roll Left to Right (QC): 3 (Min A) Sit to Lying (QC): 3 (Min A) Sit to Stand (QC): 5 Chair/Jim-wl-Ikylw Xfer(QC): 4 (CGA ) Car Transfer (QC): 4 (CGA ) Gait Training Does the Patient Walk?: Yes Distance: 150' x2 Walk 10 feet (QC): 5 Walk 50 ft with 2 Turns(QC): 5 Walk 150 ft (QC): 5 Walking 10ft/uneven surface-QC: 4 (CGA ) Gait Persons Needed: 1 Gait Assistive Device: FWW Wheelchair Training Does the Pt Use a Wheelchair?: No Wheel 50 ft with 2 turns (QC): 9 Wheel 150 ft (QC): 9 Type of Wheelchair: N/A Stair Training Stair Training: Handrails/: 1 handrail #of Steps: 6 1 Step (curb) (QC): 4 4 Steps (QC): 4 (CGA ) 12 Steps (QC): 4 (CGA ) Stairs: Pattern: Step to Balance Picking up an Object (QC): 4 (CGA ) Assessment/Plan Assessment and Plan Assess & Plan/Chief Complaint Assessment: Status post right hip replacement Hospital Irritable bowel syndrome with flare Postop constipation Slow recovery due to pain Depression Postop acute blood loss anemia Plan: Supportive care Pain control Home meds PT and OT 09/29/2022: Supportive care Monitor closely (1) Status post right hip replacement SHANNAN CALZDAA DO Sep 29, 2022 10:49
--- NOTE | 2022-09-29 10:50 | Individualized Plan of Care ---
Individualized Plan of Care Rehab Nursing IPOC Order Admission Date Sep 28, 2022 at 14:15 Current Orders Orders Admission Order(Inpt,Obs,Sdc) (09/28/22 12:37) Vital Signs: Per Unit Policy ( 08,16,00 (09/28/22 12:37) Tato Arreguin 09,21 (09/28/22 12:37) Sequential Compression Device (09/28/22 12:37) [place] Laborer-Inpt Rehab Con (09/28/22 12:37) Rehab Nursing Orders-Ipoc (09/28/22 12:37) Physical Therapy Rehab Orders (09/28/22 12:37) Occupational Therapy Rehab Ord (09/28/22 12:37) Speech Therapy Rehab Orders (09/28/22 12:37) Cbc With Automated Diff (09/29/22 06:00) Comprehensive Metabolic Panel (09/29/22 06:00) Precautions (Aru) (09/28/22 12:37) Weekly Weight WEEK (09/28/22 12:37) Rehab-Intensity Of Therapy (09/28/22 12:37) Initiate Admission Nursing Pro .admission (09/28/22 12:37) Alprazolam Tablet (Xanax Tablet) (09/28/22 12:45) Calcium Carbonate Chew Tablet (Antacid C (09/28/22 12:45) Diphenhydramine Tablet (Benadryl Tablet) (09/28/22 12:45) Docusate Sodium Capsule (Colace Capsule) (09/28/22 21:00) Docusate Sodium Capsule (Colace Capsule) (09/28/22 12:45) Bisacodyl Suppository (Dulcolax Supposit (09/28/22 12:45) Lactulose Oral Solution (Enulose Oral So (09/28/22 12:45) Na Phos/Na Biphos Enema (Fleet Enema Sukhdev (09/28/22 12:45) Guaifenesin/Codeine Syrup (Robitussin Ac (09/28/22 12:45) Loperamide Tablet (Imodium Tablet) (09/28/22 12:45) Melatonin Tablet (Melatonin Tablet) (09/28/22 12:45) Polyethylene Glycol Powder Pkt (Miralax (6/29/23 21:00) Ondansetron Oral Dissolve Tab (Zofran (09/28/22 12:45) Senna S Tablet (Senokot S Tablet) (09/28/22 21:00) Acetaminophen Tablet/Caplet (Tylenol T (09/28/22 12:45) Transfer - Bed/Room/Location (09/28/22 14:28) General/Regular (09/28/22 Dinner) Acetaminophen Tablet (Tylenol Tablet) (09/28/22 16:15) Alprazolam Tablet (Xanax Tablet) (09/28/22 21:00) Atorvastatin Tablet (Lipitor Tablet) (09/29/22 09:00) Docusate Sodium Capsule (Colace Capsule) (09/28/22 16:15) Ferrous Sulfate Tablet (Feosol Tablet) (09/29/22 09:00) Gabapentin Capsule/Tablet (Neurontin Cap (09/28/22 21:00) Hydrocodone/Apap 7.5/325 Tab (Lortab 7. (09/28/22 17:00) Loperamide Tablet (Imodium Tablet) (09/28/22 16:15) Meloxicam Tablet (Mobic Tablet) (09/28/22 18:00) Metoprolol Succinate (Xl) Tab (Toprol Xl (09/29/22 09:00) Montelukast Tablet (Singulair Tablet) (09/28/22 21:00) Ondansetron Oral Dissolve Tab (Zofran (09/28/22 16:15) Sucralfate Tablet (Carafate Tablet) (09/28/22 17:00) Tizanidine Tablet (Zanaflex Tablet) (09/28/22 21:00) Rx-Tramadol Hcl (Rx-Ultram) (09/28/22 16:15) (Nf) Cholecalciferol (Vitamin D3) (Vitam (09/29/22 09:00) (Nf) Citalopram Hydrobromide (Citalopram (09/29/22 09:00) (Nf) Naloxone Hcl (Narcan) (09/28/22 16:15) (Nf) Omeprazole (09/29/22 09:00) (Nf) Zolpidem Tartrate (Zolpidem Tartrat (09/28/22 21:00) Cholecalciferol Capsule/Tablet (Vitamin (09/29/22 09:00) Pantoprazole Tablet (Protonix Tablet) (09/29/22 09:00) Citalopram Tablet (Celexa Tablet) (09/29/22 09:00) Zolpidem Tablet (Ambien Tablet) (09/28/22 21:00) Tramadol Tablet (Ultram Tablet) (09/28/22 16:30) Patient Visit (09/28/22 ) Pt Eval Moderate Complexity (09/28/22 ) Patient Visit (09/28/22 ) Functional Activities, Ea 15 (09/28/22 ) Exercise Therap, Ea 15 Min (09/28/22 ) Cyanocobalamin Injection (Vitamin B-12 I (10/25/22 09:00) Code/Resuscitation (09/28/22 23:40) Manual Differential (09/29/22 05:32) Iron Test (Fe) (09/29/22 10:49) Vitamin B 12 (09/29/22 10:49) Patient Visit (09/29/22 ) Exercise Therap, Ea 15 Min (09/29/22 ) Functional Activities, Ea 15 (09/29/22 ) Gait Training, Ea 15 Min (09/29/22 ) Patient Visit (09/29/22 ) Speech Sound Lang Comp (09/29/22 ) Rehab Nursing Orders: Ongoing Assess. of Cognitive Status, Ongoing Assess. of Function Status, Bladder Management, Bladder Scan, Bladder Training, Bowel Management, Bowel Training, Disease Management & Educaiton, DVT Prophylaxis, Fall Prevention, Fluid/Electrolyte/Nutrition Mgmt, Infection Prevention, Medication Management & Education, Management of Risks & Complications, Management of Skin Intergrity, Nutrition Management, Pain Management, Patient/Family Support, Safety Management, Swallow Precautions, Wound Management Intensity of Therapy to be met Patient to be seen: Min.3h per day/5 of 7d PT IPOC Problem List: Activity Tolerance, Functional Strength, Safety Treatment Plan: Continue Plan of Care Bed Mobility, Concurrent Therapy, Education, Functional Activity Nan, Functional Strength, Group Therapy, Gait, Safety, Therapeutic Exercise, Transfers Treatment Duration: Oct 06, 2022 Frequency: At least 5 of 7 days/Wk (IRF) Estimated Hrs Per Day: 1.5 hours per day OT IPOC Problems: Decreased Activ Tolerance, Decreased Safety Aware, Decreased UE Strength, Impaired Funct Balance, Impaired Self-Care Skills OT Treatment, Training and Edu: Yes Plan of Care: ADL Retraining, Concurrent Therapy, Functional Mobility, Group Exercise/Act as Ind, UE Funct Exercise/Act Treatment Duration: Oct 13, 2022 Frequency: At least 5 of 7 days/Wk (IRF) Estimated Hrs Per Day: 1.[address] IPOC Speech Therapy Treatment Plan: Discontinue ST Treatment Duration: Sep 29, 2022 Frequency: Modified Program (IRF) Estimated Hrs Per Day: Other [place] Laborer/Case Mgmt [place] Laborer/Case Managemen: Discharge Planning Dietitian/Presentation Designer Dietitian/Presentation Designer to monitor nutritional status and make changes and/or recommendations as needed and work with speech pathology on dietary upgrades as the occur. Physician IPOC Medical Issues being managed closely and that require the 24 hour availability of a physician: Recent hip replacement with irritable bowel syndrome flare with asthma will continue to be monitored for any decompensation from medical issues Medical Issues: Bowel/Bladder Function, DVT Prophylaxis, Falls Precautions, Fluid/Electrolyte/Nutrition Balance, Infection Protection, Pain Management, Wound Care Brief Synthesis of Preadmission Screen, Post-Admission Evaluation, and Therapy Evaluations: PT and OT will focus on regaining function with use of assistive devices in order to increase ambulation and stamina and decrease pain and fall risk Medical Prognosis: Good Anticipated Length of Stay: 7 days SHANNAN CALZADA DO Sep 29, 2022 10:50
--- NOTE | 2022-09-29 12:03 | Physical Therapy Daily Note ---
PT Daily Note-Current Subjective Pt in BR upon arrival and agrees to PT. Says she doesn't need any assistance w/ leaving BR. Pain Numeric Pain Scale: 4 Location: Right Location Body Site: Hip Section J - Health Conditions 1. Rarely or not at all 2. Occasionally 3. Frequently 4. Almost constantly 8. Unable to answer Pain Effect on Sleep: 2 Pain Interference with Therapy: 3 Pain Interference w/Day-to-Day: 2 Mental Status Patient Orientation: Person, Place, Time, Situation Transfers SCALE: Activities may be completed with or without assistive devices. 3-Pqlwvvgfqu-ltbqqul completes the activity by him/herself with no assistance from a helper. 5-Set-up or Clean-up Assistance-helper sets up or cleans up; patient completes activity. [place] assists only prior to or following the activity. 4-Supervision or Touching Assistance-helper provides verbal cues and/or touching/steadying and/or contact guard assistance as patient completes activity. Assistance may be provided throughout the activity or intermittently. 3-Partial/Moderate Assistance-helper does LESS THAN HALF the effort. [place] lifts, holds or supports trunk or limbs, but provides less than half the effort. 2-Substantial/Maximal Assistance-helper does MORE THAN HALF the effort. [place] lifts or holds trunk or limbs and provides more than half the effort. 2-[place] does ALL the effort. Patient does none of the effort to complete the activity. Or, the assistance of 2 or more helpers is required for the patient to complete the activity. If activity was not attempted, code reason: 7-Patient Refused. 9-Not Applicable-not attempted and the patient did not perform the activity before the current illness, exacerbation or injury. 10-Not Attempted due to Environmental Limitations-(lack of equipment, weather restraints, etc.). 88-Not Attempted due to Medical Conditions or Safety Concerns. Sit to Stand (QC): 5 Weight Bearing Right Lower Extremity: Right Weight Bearing/Tolerated Left Lower Extremity: Left Full Weight Bearing Gait Training Does the Patient Walk?: Yes Distance: 300' x 2 Walk 10 feet (QC): 5 Walk 50 ft with 2 Turns(QC): 5 Walk 150 ft (QC): 5 Gait Persons Needed: 1 Gait Assistive Device: FWW Exercises Seated Therapy Exercises: Ankle pumps, Long arc quads, Hip flexion, Hamstring Curls, Hip abd/add, Glut set Seated Reps: 30 Treatments Pt amb into roman and to windowsill and then performed hers seated exs. Pt then amb back to room and TRFs back to bed. All needs met and call light nearby as PT departs. Assessment Current Status: Good Progress Pt required verbal cues for hand and foot placement while performing TRFs and to perform exs correctly. PT Detention Goals Industrial Education Instructor Goals PT Industrial Education Instructor Goals Time Frame: Oct 06, 2022 Roll Left & Right (QC): 6 (Mod I with functional mobility ) Sit to Lying (QC): 6 (Mod I with functional mobility ) Lying-Sitting on Side/Bed(QC): 6 (Mod I with functional mobility ) Sit to Stand (QC): 6 (Mod I with functional mobility ) Chair/Iwo-mm-Cgmxf Xfer(QC): 6 (Mod I with functional mobility ) Toilet Transfer (QC): 6 (Mod I with functional mobility ) Car Transfer (QC): 6 (Mod I with functional mobility ) Does the Patient Walk: Yes Walk 10 feet (QC): 6 (Mod I with functional mobility ) Walk 50ft with 2 Turns (QC): 6 (Mod I with functional mobility ) Walk 150 ft (QC): 6 (Mod I with functional mobility ) Walking 10ft on Uneven Surface: 6 (Mod I with functional mobility ) 1 Step (curb) (QC): 6 (Mod I with functional mobility ) 4 Steps (QC): 6 (Mod I with functional mobility ) 12 Steps (QC): 6 (Mod I with functional mobility ) Picking up an Object (QC): 6 (Mod I with functional mobility ) Does the Pt use WC or Scooter?: No Wheel 50 feet with 2 turns (QC: 9 Type: N/A Wheel 150 feet: 9 Type: N/A PT Plan Problem List Problem List: Activity Tolerance, Functional Strength Treatment/Plan Treatment Plan: Continue Plan of Care Treatment Plan: Bed Mobility, Concurrent Therapy, Education, Functional Activity Nan, Functional Strength, Group Therapy, Gait, Safety, Therapeutic Exercise, Transfers Treatment Duration: Oct 06, 2022 Frequency: At least 5 of 7 days/Wk (IRF) Estimated Hrs Per Day: 1.5 hours per day Patient and/or Family Agrees t: Yes Safety Risks/Education Patient Education: Correct Positioning Teaching Recipient: Patient Teaching Methods: Discussion Response to Teaching: Return Demonstration Time Time In: 1030 Time Out: 1100 DATE: Sep 29, 2022 Total Billed Treatment Time: 30 Total Billed Treatment 1, EX, GT MUNDO ADAMES DETAILER FURNITURE Sep 29, 2022 12:03
--- NOTE | 2022-09-29 16:17 | ST Cognitive Linguistic Eval ---
Speech Evaluation-General Medical Diagnosis AVN, S/P R MICHELLE Onset Date: Sep 27, 2022 Therapy Diagnosis Therapy Diagnosis: MILD COGNITIVE DEFICIT Precautions Precautions: Fall, Hip Precautions/Isolations: Fall Prevention Referral Referring Physician: Dr. Wright Reason for Referral: Evaluation/Treatment Cognitive Evaluation Medical History Pertinent Medical History: Arthritis Arthritis, Weakness, Falls, Asthma, Depression, Hyperlipidemia, Migraines, Cholecystectomy, L MICHELLE 12 years ago, Hysterectomy Current History S/P R MICHELLE anterior approach on 09/27/2022; Admitted to ARU on 09/28/2022 Reviewed History: Yes Social History Home: Assisted Living Current Living Status: Alone Speech PLF-Current Status Prior Level of Function Pt lives in assisted living where daughter is a medical center director. Pt does not manage her own meds or finances. Pt does not have to cook meals. Subjective Pt asleep in bed when MASS SPEC enters room. Pt easily roused and is pleasant and cooperative throughout the session. Pain Numeric Pain Scale: 4 Location: Right Location Body Site: Hip Comment: states sore throat Language Eval: Auditory Comprehends Simple Yes/No Ques: Functional Follows 1-Step Commands: Functional Follows General Conversations: Functional Language Eval: Verbal Language Completes Spontaneous Greeting: Functional Word Finding: Functional Requests Basic Needs: Functional Expresses Complex Ideas: Functional Objective Cognitive Domain Attention: WNL Memory: Mild Problem Solving: Functional Executive Functions: Mild Visuospatial Skills: WNL Composite Severity Rating: Mild Clock Drawing Severity Rating: Mild Score: 21 Objective Formal/Standardized Tests SLUMS Results Impression Pt presents with MILD COGNITIVE DEFICITS at this time. Pt demonstrates most difficulty with memory task. Pt able to recall 4/5 words immediately and 3/5 words following a short delay. Pt able to answer 2/4 questions correctly about a verbal story. Pt able to complete mental manipulation with 2 and 3 objects, but unable to complete with 4. Pt is oriented to day, year, and state. Pt able to complete basic math problem solving and states 11 animals in one minutes. Pt follows basic one step directions. Pt does well with writing in hour markers on the clock. Pt correctly places the hour hand, but incorrectly places the minute hand by 5 minutes. Pt is able to recall current and past events in conversation. Pt talks about her family and previous jobs she held. Pt discusses what she does and doesn't like about assisted living. Pt denies difficulty with swallowing at this time. MASS SPEC will remain on consult services at this time. Speech-Plan Patient/Family Goals Patient/Family Goals: Pt's goal is to return to assisted living facility. Treatment Plan Speech Therapy Treatment Plan: Continue Plan of Care Frequency: 1 time per month (Consult) Estimated Hrs Per Day: Other (Consult) Rehab Potential: Good Pt/Family Agrees to Plan: Yes Safety Risks/Education Teaching Recipient: Patient Teaching Methods: Discussion Response to Teaching: Verbalize Understanding, Reinforcement Needed Education Topics Provided: Pt educated on the role of the MASS SPEC, purpose of the evaluation, results, and recommendations. Pt receptive and verbalized understanding, but may require reinforcement. Time Speech Therapy Time In: 15:25 Speech Therapy Time Out: 15:55 DATE: Sep 29, 2022 Total Billed Time: 30 Billed Treatment Time S/L Alo Chung Speech Therapy Sep 29, 2022 16:16
[2022-09-29] MEDS: MONTELUKAST 10 MG (SINGULAIR) TAB PO SCH (21:23)
[2022-09-29] MEDS: ZOLPIDEM 5 MG (AMBIEN) TAB PO SCH (21:23)
[2022-09-29] MEDS: ALPRAZolam 1 MG (XANAX) TAB PO SCH (21:24)
[2022-09-29 22:22] VITALS: BP 99/50
[2022-09-30] MEDS: HYDROcodone/APAP 7.5 MG/325 MG (LORTAB, LORCET PLUS) TABLET PO SCH ×4 (05:30→23:06)
--- NOTE | 2022-09-30 06:51 | PM&R Progress Note ---
Subjective HPI/CC On Admission Date Seen by Provider: Sep 30, 2022 Time Seen by Provider: 12:30 Subjective/Events-last exam 09/30/2022: Patient doing a little better Slow recovery No falls Pain is pretty well controlled 09/29/2022: Patient doing a lot better Updated her on lab results Patient takes an iron pill daily Pain is pretty well controlled Slow recovery Review of Systems General: Fatigue, Malaise Objective Exam Vital Signs Vital Signs Date Time Temp Pulse Resp B/P (MAP) Pulse Ox O2 Delivery O2 Flow Rate FiO2 09/30/22 09:00 98 Room Air 09/30/22 08:00 36.6 77 16 97/46 (63) Capillary Refill : General Appearance: No Apparent Distress, WD/WN, Chronically ill HEENT: PERRL/EOMI, Normal ENT Inspection, Pharynx Normal Neck: Full Range of Motion, Normal Inspection, Non Tender, Supple, Carotid Bruit Respiratory: Chest Non Tender, Lungs Clear, Normal Breath Sounds, No Accessory Muscle Use, No Respiratory Distress Cardiovascular: Regular Rate, Rhythm, No Edema, No Gallop, No JVD, No Murmur, Normal Peripheral Pulses Gastrointestinal: Normal Bowel Sounds, No Organomegaly, No Pulsatile Mass, Non Tender, Soft Back: Normal Inspection, No CVA Tenderness, No Vertebral Tenderness Extremity: Normal Capillary Refill, Normal Inspection, Normal Range of Motion (Limited range of motion right leg), Non Tender, No Calf Tenderness, No Pedal Edema Neurologic/Psychiatric: Alert, Oriented x3, No Motor/Sensory Deficits, Normal Mood/Affect, Abnormal Gait, Motor Weakness ( right leg weakness) Skin: Normal Color, Warm/Dry Lymphatic: No Adenopathy Results/Procedures Lab Patient resulted labs reviewed. FIM Transfers Therapy Code Descriptions/Definitions Functional [place] Measure: 0=Not Assessed/NA 4=Minimal Assistance 1=Total Assistance 5=Supervision or Setup 2=Maximal Assistance 6=Modified [place] 3=Moderate Assistance 7=Complete IndependenceSCALE: Activities may be completed with or without assistive devices. 0-Kyeqqpumtf-bmmiyuy completes the activity by him/herself with no assistance from a helper. 5-Set-up or Clean-up Assistance-helper sets up or cleans up; patient completes activity. [place] assists only prior to or following the activity. 4-Supervision or Touching Assistance-helper provides verbal cues and/or touching/steadying and/or contact guard assistance as patient completes activity. Assistance may be provided throughout the activity or intermittently. 3-Partial/Moderate Assistance-helper does LESS THAN HALF the effort. [place] lifts, holds or supports trunk or limbs, but provides less than half the effort. 2-Substantial/Maximal Assistance-helper does MORE THAN HALF the effort. [place] lifts or holds trunk or limbs and provides more than half the effort. 7-Vadvilonj-fwcagt does ALL the effort. Patient does none of the effort to complete the activity. Or, the assistance of 2 or more helpers is required for the patient to complete the activity. If activity was not attempted, code reason: 7-Patient Refused. 9-Not Applicable-not attempted and the patient did not perform the activity before the current illness, exacerbation or injury. 10-Not Attempted due to Environmental Limitations-(lack of equipment, weather restraints, etc.). 88-Not Attempted due to Medical Conditions or Safety Concerns. Roll Left to Right (QC): 3 (Min A) Sit to Lying (QC): 3 (Min A) Sit to Stand (QC): 5 Chair/Mus-xs-Mxexs Xfer(QC): 4 (CGA ) Car Transfer (QC): 4 (CGA ) Gait Training Does the Patient Walk?: Yes Distance: 300' x 2 Walk 10 feet (QC): 5 Walk 50 ft with 2 Turns(QC): 5 Walk 150 ft (QC): 5 Walking 10ft/uneven surface-QC: 4 (CGA ) Gait Persons Needed: 1 Gait Assistive Device: FWW Wheelchair Training Does the Pt Use a Wheelchair?: No Wheel 50 ft with 2 turns (QC): 9 Wheel 150 ft (QC): 9 Type of Wheelchair: N/A Stair Training Stair Training: Handrails/: 1 handrail #of Steps: 6 1 Step (curb) (QC): 4 4 Steps (QC): 4 (CGA ) 12 Steps (QC): 4 (CGA ) Stairs: Pattern: Step to Balance Picking up an Object (QC): 4 (CGA ) Assessment/Plan Assessment and Plan Assess & Plan/Chief Complaint Assessment: Status post right hip replacement Hospital Irritable bowel syndrome with flare Postop constipation Slow recovery due to pain Depression Postop acute blood loss anemia Plan: Supportive care Pain control Home meds PT and OT 09/29/2022: Supportive care Monitor closely 09/30/2022: Continue pain regimen Aggressive rehab (1) Status post right hip replacement SHANNAN CALZADA DO Sep 30, 2022 06:51
[2022-09-30 08:00] VITALS: BP 97/46
[2022-09-30] MEDS: MELOXICAM 7.5 MG (MOBIC) TABLET PO SCH ×2 (10:50→17:17)
[2022-09-30] MEDS: SUCRALFATE 1 GM (CARAFATE) TAB PO SCH ×4 (10:50→21:36)
[2022-09-30] MEDS: GABAPENTIN 600 MG (NEURONTIN) TAB PO SCH ×3 (10:51→21:36)
[2022-09-30] MEDS: SENNA W/DOCUSATE (SENOKOT S) TABLET PO SCH ×2 (10:51→21:36)
[2022-09-30] MEDS: VITAMIN D3 25 MCG (1,000 UNITS) TABLET PO SCH (10:51)
[2022-09-30] MEDS: PANTOPRAZOLE 40 MG (PROTONIX) TAB PO SCH (10:51)
[2022-09-30] MEDS: FERROUS SULF 325 MG (IRON) TAB PO SCH (10:52)
[2022-09-30] MEDS: DOCUSATE SODIUM 100 MG (COLACE) CAP PO SCH ×2 (10:52→21:36)
[2022-09-30] MEDS: polyethylene glycoL POWDER 17 GM (MIRALAX) PACK PO SCH ×2 (10:55→21:31)
[2022-09-30] MEDS: LACTULOSE SYRUP 10GM/15ML (ENULOSE) 30ML UDC PO PRN (12:44)
[2022-09-30 20:48] VITALS: BP 106/61
[2022-09-30] MEDS: ALPRAZolam 1 MG (XANAX) TAB PO SCH (21:36)
[2022-09-30] MEDS: MONTELUKAST 10 MG (SINGULAIR) TAB PO SCH (21:36)
[2022-09-30] MEDS: ZOLPIDEM 5 MG (AMBIEN) TAB PO SCH (21:37)
[2022-10-01] MEDS: HYDROcodone/APAP 7.5 MG/325 MG (LORTAB, LORCET PLUS) TABLET PO SCH ×4 (05:09→23:06)
--- NOTE | 2022-10-01 07:37 | PM&R Progress Note ---
Subjective HPI/CC On Admission Date Seen by Provider: Oct 01, 2022 Time Seen by Provider: 12:00 Subjective/Events-last exam 10/01/2022: Patient doing a lot better Slow recovery Pain is controlled 09/30/2022: Patient doing a little better Slow recovery No falls Pain is pretty well controlled 09/29/2022: Patient doing a lot better Updated her on lab results Patient takes an iron pill daily Pain is pretty well controlled Slow recovery Review of Systems General: Fatigue, Malaise Objective Exam Vital Signs Vital Signs Date Time Temp Pulse Resp B/P (MAP) Pulse Ox O2 Delivery O2 Flow Rate FiO2 10/01/22 08:00 36.8 82 18 107/54 (71) 98 Room Air Capillary Refill : General Appearance: No Apparent Distress, WD/WN, Chronically ill HEENT: PERRL/EOMI, Normal ENT Inspection, Pharynx Normal Neck: Full Range of Motion, Normal Inspection, Non Tender, Supple, Carotid Bruit Respiratory: Chest Non Tender, Lungs Clear, Normal Breath Sounds, No Accessory Muscle Use, No Respiratory Distress Cardiovascular: Regular Rate, Rhythm, No Edema, No Gallop, No JVD, No Murmur, Normal Peripheral Pulses Gastrointestinal: Normal Bowel Sounds, No Organomegaly, No Pulsatile Mass, Non Tender, Soft Back: Normal Inspection, No CVA Tenderness, No Vertebral Tenderness Extremity: Normal Capillary Refill, Normal Inspection, Normal Range of Motion (Limited range of motion right leg), Non Tender, No Calf Tenderness, No Pedal Edema Neurologic/Psychiatric: Alert, Oriented x3, No Motor/Sensory Deficits, Normal Mood/Affect, Abnormal Gait, Motor Weakness ( right leg weakness) Skin: Normal Color, Warm/Dry Lymphatic: No Adenopathy Results/Procedures Lab Patient resulted labs reviewed. FIM Transfers Therapy Code Descriptions/Definitions Functional [place] Measure: 0=Not Assessed/NA 4=Minimal Assistance 1=Total Assistance 5=Supervision or Setup 2=Maximal Assistance 6=Modified [place] 3=Moderate Assistance 7=Complete IndependenceSCALE: Activities may be completed with or without assistive devices. 0-Gouxssctnv-cbfcjrn completes the activity by him/herself with no assistance from a helper. 5-Set-up or Clean-up Assistance-helper sets up or cleans up; patient completes activity. [place] assists only prior to or following the activity. 4-Supervision or Touching Assistance-helper provides verbal cues and/or touching/steadying and/or contact guard assistance as patient completes activity. Assistance may be provided throughout the activity or intermittently. 3-Partial/Moderate Assistance-helper does LESS THAN HALF the effort. [place] lifts, holds or supports trunk or limbs, but provides less than half the effort. 2-Substantial/Maximal Assistance-helper does MORE THAN HALF the effort. [place] lifts or holds trunk or limbs and provides more than half the effort. 8-Jmmqrijpl-lxfbkx does ALL the effort. Patient does none of the effort to complete the activity. Or, the assistance of 2 or more helpers is required for the patient to complete the activity. If activity was not attempted, code reason: 7-Patient Refused. 9-Not Applicable-not attempted and the patient did not perform the activity before the current illness, exacerbation or injury. 10-Not Attempted due to Environmental Limitations-(lack of equipment, weather restraints, etc.). 88-Not Attempted due to Medical Conditions or Safety Concerns. Roll Left to Right (QC): 3 (Min A) Sit to Lying (QC): 3 (Min A) Sit to Stand (QC): 5 Chair/Pwn-uf-Ihkjd Xfer(QC): 4 (CGA ) Car Transfer (QC): 4 (CGA ) Gait Training Does the Patient Walk?: Yes Distance: 300' x 2 Walk 10 feet (QC): 5 Walk 50 ft with 2 Turns(QC): 5 Walk 150 ft (QC): 5 Walking 10ft/uneven surface-QC: 4 (CGA ) Gait Persons Needed: 1 Gait Assistive Device: FWW Wheelchair Training Does the Pt Use a Wheelchair?: No Wheel 50 ft with 2 turns (QC): 9 Wheel 150 ft (QC): 9 Type of Wheelchair: N/A Stair Training Stair Training: Handrails/: 1 handrail #of Steps: 6 1 Step (curb) (QC): 4 4 Steps (QC): 4 (CGA ) 12 Steps (QC): 4 (CGA ) Stairs: Pattern: Step to Balance Picking up an Object (QC): 4 (CGA ) Assessment/Plan Assessment and Plan Assess & Plan/Chief Complaint Assessment: Status post right hip replacement Hospital Irritable bowel syndrome with flare Postop constipation Slow recovery due to pain Depression Postop acute blood loss anemia Plan: Supportive care Pain control Home meds PT and OT 09/29/2022: Supportive care Monitor closely 09/30/2022: Continue pain regimen Aggressive rehab 10/01/2022: Supportive care Pain control (1) Status post right hip replacement SHANNAN CALZADA DO Oct 01, 2022 07:37
[2022-10-01 08:00] VITALS: BP 107/54
[2022-10-01] MEDS: SUCRALFATE 1 GM (CARAFATE) TAB PO SCH ×4 (08:27→21:29)
[2022-10-01] MEDS: VITAMIN D3 25 MCG (1,000 UNITS) TABLET PO SCH (08:27)
[2022-10-01] MEDS: MELOXICAM 7.5 MG (MOBIC) TABLET PO SCH ×2 (08:27→18:54)
[2022-10-01] MEDS: DOCUSATE SODIUM 100 MG (COLACE) CAP PO SCH ×2 (08:27→21:29)
[2022-10-01] MEDS: PANTOPRAZOLE 40 MG (PROTONIX) TAB PO SCH (08:27)
[2022-10-01] MEDS: GABAPENTIN 600 MG (NEURONTIN) TAB PO SCH ×3 (08:27→21:28)
[2022-10-01] MEDS: FERROUS SULF 325 MG (IRON) TAB PO SCH (08:27)
[2022-10-01] MEDS: SENNA W/DOCUSATE (SENOKOT S) TABLET PO SCH ×2 (12:47→21:30)
[2022-10-01] MEDS: polyethylene glycoL POWDER 17 GM (MIRALAX) PACK PO SCH ×2 (12:47→21:26)
[2022-10-01 20:00] VITALS: BP 99/48
[2022-10-01] MEDS: MONTELUKAST 10 MG (SINGULAIR) TAB PO SCH (21:28)
[2022-10-01] MEDS: ZOLPIDEM 5 MG (AMBIEN) TAB PO SCH (21:29)
[2022-10-01] MEDS: ALPRAZolam 1 MG (XANAX) TAB PO SCH (21:29)
[2022-10-02] MEDS: HYDROcodone/APAP 7.5 MG/325 MG (LORTAB, LORCET PLUS) TABLET PO SCH ×4 (05:22→22:33)
[2022-10-02 05:55] LABS: BASOPHILS % (AUTO) 0 % (0-10); EOSINOPHILS # (AUTO) 0.6 10^3/uL (0.0-0.3); EOSINOPHILS % (AUTO) 6 % (0-10); HEMATOCRIT 26 % (35-52); HEMOGLOBIN 8.2 g/dL (11.5-16.0); LYMPHOCYTES # (AUTO) 3.5 10^3/uL (1.0-4.0); LYMPHOCYTES % (AUTO) 39 % (12-44); MEAN CORPUSCULAR HEMOGLOBIN 30 pg (25-34); MEAN CORPUSCULAR HGB CONC 31 g/dL (32-36); MEAN CORPUSCULAR VOLUME 96 fL (80-99); MEAN PLATELET VOLUME 9.5 fL (9.0-12.2); MONOCYTES # (AUTO) 0.7 10^3/uL (0.0-1.0); MONOCYTES % (AUTO) 8 % (0-12); NEUTROPHILS # (AUTO) 4.3 10^3/uL (1.8-7.8); NEUTROPHILS % (AUTO) 47 % (42-75); PLATELET COUNT 250 10^3/uL (130-400); WHITE BLOOD COUNT 9.2 10^3/uL (4.3-11.0)
[2022-10-02 06:22] LABS: ALBUMIN 3.1 GM/DL (3.2-4.5); BILIRUBIN,TOTAL 0.4 MG/DL (0.1-1.0); CALCIUM 8.9 MG/DL (8.5-10.1); CREATININE SERUM 1.3 MG/DL (0.60-1.30); POTASSIUM 4.8 MMOL/L (3.6-5.0); TOTAL PROTEIN 5.7 GM/DL (6.4-8.2)
[2022-10-02] MEDS: polyethylene glycoL POWDER 17 GM (MIRALAX) PACK PO SCH ×2 (07:57→21:41)
[2022-10-02 08:00] VITALS: BP 125/56
[2022-10-02] MEDS: FERROUS SULF 325 MG (IRON) TAB PO SCH (08:53)
[2022-10-02] MEDS: MELOXICAM 7.5 MG (MOBIC) TABLET PO SCH ×2 (08:53→17:00)
[2022-10-02] MEDS: PANTOPRAZOLE 40 MG (PROTONIX) TAB PO SCH (08:54)
[2022-10-02] MEDS: GABAPENTIN 600 MG (NEURONTIN) TAB PO SCH ×3 (08:54→21:44)
[2022-10-02] MEDS: DOCUSATE SODIUM 100 MG (COLACE) CAP PO SCH ×2 (08:54→21:40)
[2022-10-02] MEDS: VITAMIN D3 25 MCG (1,000 UNITS) TABLET PO SCH (08:54)
[2022-10-02] MEDS: SUCRALFATE 1 GM (CARAFATE) TAB PO SCH ×4 (08:54→21:44)
[2022-10-02] MEDS: SENNA W/DOCUSATE (SENOKOT S) TABLET PO SCH ×2 (08:55→21:58)
--- NOTE | 2022-10-02 11:46 | PM&R Progress Note ---
Subjective HPI/CC On Admission Date Seen by Provider: Oct 02, 2022 Time Seen by Provider: 12:00 Subjective/Events-last exam 10/02/2022: Patient doing a lot better Labs reviewed No pain right now No falls 10/01/2022: Patient doing a lot better Slow recovery Pain is controlled 09/30/2022: Patient doing a little better Slow recovery No falls Pain is pretty well controlled 09/29/2022: Patient doing a lot better Updated her on lab results Patient takes an iron pill daily Pain is pretty well controlled Slow recovery Review of Systems General: Fatigue, Malaise Objective Exam Vital Signs Vital Signs Date Time Temp Pulse Resp B/P (MAP) Pulse Ox O2 Delivery O2 Flow Rate FiO2 10/02/22 21:30 96 Room Air 10/02/22 19:54 36.0 76 20 98/47 (64) Capillary Refill : General Appearance: No Apparent Distress, WD/WN, Chronically ill HEENT: PERRL/EOMI, Normal ENT Inspection, Pharynx Normal Neck: Full Range of Motion, Normal Inspection, Non Tender, Supple, Carotid Bruit Respiratory: Chest Non Tender, Lungs Clear, Normal Breath Sounds, No Accessory Muscle Use, No Respiratory Distress Cardiovascular: Regular Rate, Rhythm, No Edema, No Gallop, No JVD, No Murmur, Normal Peripheral Pulses Gastrointestinal: Normal Bowel Sounds, No Organomegaly, No Pulsatile Mass, Non Tender, Soft Back: Normal Inspection, No CVA Tenderness, No Vertebral Tenderness Extremity: Normal Capillary Refill, Normal Inspection, Normal Range of Motion (Limited range of motion right leg), Non Tender, No Calf Tenderness, No Pedal Edema Neurologic/Psychiatric: Alert, Oriented x3, No Motor/Sensory Deficits, Normal Mood/Affect, Abnormal Gait, Motor Weakness ( right leg weakness) Skin: Normal Color, Warm/Dry Lymphatic: No Adenopathy Results/Procedures Lab Patient resulted labs reviewed. FIM Transfers Therapy Code Descriptions/Definitions Functional [place] Measure: 0=Not Assessed/NA 4=Minimal Assistance 1=Total Assistance 5=Supervision or Setup 2=Maximal Assistance 6=Modified [place] 3=Moderate Assistance 7=Complete IndependenceSCALE: Activities may be completed with or without assistive devices. 4-Fugcxbwdrd-uqcsymx completes the activity by him/herself with no assistance from a helper. 5-Set-up or Clean-up Assistance-helper sets up or cleans up; patient completes activity. [place] assists only prior to or following the activity. 4-Supervision or Touching Assistance-helper provides verbal cues and/or touching/steadying and/or contact guard assistance as patient completes activity. Assistance may be provided throughout the activity or intermittently. 3-Partial/Moderate Assistance-helper does LESS THAN HALF the effort. [place] lifts, holds or supports trunk or limbs, but provides less than half the effort. 2-Substantial/Maximal Assistance-helper does MORE THAN HALF the effort. [place] lifts or holds trunk or limbs and provides more than half the effort. 0-Toyjogwxs-cgwghb does ALL the effort. Patient does none of the effort to complete the activity. Or, the assistance of 2 or more helpers is required for the patient to complete the activity. If activity was not attempted, code reason: 7-Patient Refused. 9-Not Applicable-not attempted and the patient did not perform the activity before the current illness, exacerbation or injury. 10-Not Attempted due to Environmental Limitations-(lack of equipment, weather restraints, etc.). 88-Not Attempted due to Medical Conditions or Safety Concerns. Roll Left to Right (QC): 3 (Min A) Sit to Lying (QC): 3 (Min A) Sit to Stand (QC): 5 Chair/Hew-cr-Sbljo Xfer(QC): 4 (CGA ) Car Transfer (QC): 4 (CGA ) Gait Training Does the Patient Walk?: Yes Distance: 300' x 2 Walk 10 feet (QC): 5 Walk 50 ft with 2 Turns(QC): 5 Walk 150 ft (QC): 5 Walking 10ft/uneven surface-QC: 4 (CGA ) Gait Persons Needed: 1 Gait Assistive Device: FWW Wheelchair Training Does the Pt Use a Wheelchair?: No Wheel 50 ft with 2 turns (QC): 9 Wheel 150 ft (QC): 9 Type of Wheelchair: N/A Stair Training Stair Training: Handrails/: 1 handrail #of Steps: 6 1 Step (curb) (QC): 4 4 Steps (QC): 4 (CGA ) 12 Steps (QC): 4 (CGA ) Stairs: Pattern: Step to Balance Picking up an Object (QC): 4 (CGA ) Assessment/Plan Assessment and Plan Assess & Plan/Chief Complaint Assessment: Status post right hip replacement Hospital Irritable bowel syndrome with flare Postop constipation Slow recovery due to pain Depression Postop acute blood loss anemia Plan: Supportive care Pain control Home meds PT and OT 09/29/2022: Supportive care Monitor closely 09/30/2022: Continue pain regimen Aggressive rehab 10/01/2022: Supportive care Pain control 10/02/2022: Supportive care Monitor closely (1) Status post right hip replacement SHANNAN CALZADA DO Oct 02, 2022 11:46
--- NOTE | 2022-10-02 12:42 | Physical Therapy Daily Note ---
PT Daily Note-Current Subjective pt is in recliner upon arrival and willing for therapy. pt reports 4/10 pain prior to therapy and 5-6/10 after ambulating. resting does help to alleviate the pain. pt was left in recliner after therapy with call light and all needs met this day. Pain Section J - Health Conditions 1. Rarely or not at all 2. Occasionally 3. Frequently 4. Almost constantly 8. Unable to answer Pain Effect on Sleep: 1 Pain Interference with Therapy: 3 Pain Interference w/Day-to-Day: 2 Mental Status Patient Orientation: Person, Place, Time, Situation Transfers SCALE: Activities may be completed with or without assistive devices. 1-Yjwujwwkbi-uoyquxo completes the activity by him/herself with no assistance from a helper. 5-Set-up or Clean-up Assistance-helper sets up or cleans up; patient completes activity. [place] assists only prior to or following the activity. 4-Supervision or Touching Assistance-helper provides verbal cues and/or touching/steadying and/or contact guard assistance as patient completes activity. Assistance may be provided throughout the activity or intermittently. 3-Partial/Moderate Assistance-helper does LESS THAN HALF the effort. [place] lifts, holds or supports trunk or limbs, but provides less than half the effort. 2-Substantial/Maximal Assistance-helper does MORE THAN HALF the effort. [place] lifts or holds trunk or limbs and provides more than half the effort. 8-Zdwpculzg-ngahre does ALL the effort. Patient does none of the effort to complete the activity. Or, the assistance of 2 or more helpers is required for the patient to complete the activity. If activity was not attempted, code reason: 7-Patient Refused. 9-Not Applicable-not attempted and the patient did not perform the activity before the current illness, exacerbation or injury. 10-Not Attempted due to Environmental Limitations-(lack of equipment, weather restraints, etc.). 88-Not Attempted due to Medical Conditions or Safety Concerns. Weight Bearing Right Lower Extremity: Right Weight Bearing/Tolerated Left Lower Extremity: Left Full Weight Bearing Exercises Supine Ex: Glut sets, Heel Slides, Short Arc Quads, Hip abd/add Seated Therapy Exercises: Ankle pumps, Sit to stand, Long arc quads, Hip flexion, Kicking activity, Hamstring Curls, Glut set Treatments pt is able to ambulate 250ft with RW and SBA with 1 rest beaks secondary to pain in right hip increasing when ambulating. pt is able to preform sitting there ex- in all planes of motion available for 2 sets of 20 this day . pt Assessment Current Status: Good Progress PT Emergency Management Director Goals Emergency Management Director Goals PT Intermediate Goals Time Frame: Oct 06, 2022 Roll Left & Right (QC): 6 (Mod I with functional mobility ) Sit to Lying (QC): 6 (Mod I with functional mobility ) Lying-Sitting on Side/Bed(QC): 6 (Mod I with functional mobility ) Sit to Stand (QC): 6 (Mod I with functional mobility ) Chair/Nco-ui-Eadtx Xfer(QC): 6 (Mod I with functional mobility ) Toilet Transfer (QC): 6 (Mod I with functional mobility ) Car Transfer (QC): 6 (Mod I with functional mobility ) Does the Patient Walk: Yes Walk 10 feet (QC): 6 (Mod I with functional mobility ) Walk 50ft with 2 Turns (QC): 6 (Mod I with functional mobility ) Walk 150 ft (QC): 6 (Mod I with functional mobility ) Walking 10ft on Uneven Surface: 6 (Mod I with functional mobility ) 1 Step (curb) (QC): 6 (Mod I with functional mobility ) 4 Steps (QC): 6 (Mod I with functional mobility ) 12 Steps (QC): 6 (Mod I with functional mobility ) Picking up an Object (QC): 6 (Mod I with functional mobility ) Does the Pt use WC or Scooter?: No Wheel 50 feet with 2 turns (QC: 9 Type: N/A Wheel 150 feet: 9 Type: N/A PT Plan Treatment/Plan Treatment Plan: Continue Plan of Care Treatment Plan: Bed Mobility, Concurrent Therapy, Education, Functional Activit y Nan, Functional Strength, Group Therapy, Gait, Safety, Therapeutic Exercise, Transfers Treatment Duration: Oct 06, 2022 Frequency: At least 5 of 7 days/Wk (IRF) Estimated Hrs Per Day: 1.5 hours per day Patient and/or Family Agrees t: Yes Time Time In: 844 Time Out: 944 DATE: Oct 02, 2022 Total Billed Treatment Time: 60 Total Billed Treatment 1 EX x 3 FA x 3 Sonia Cox BRAKE SHOE REBUILDER Oct 02, 2022 12:42
--- NOTE | 2022-10-02 13:01 | Occupational Ther Daily Note ---
OT Current Status-Daily Note Subjective Pt was lying in bed upon arrival. Pt agrees to therapy, alert and cooperative. ADL-Treatment Pt sat EOB independently, pt completed upper and lower body dressing with set up assist. Footwear set up assist. Pt ambulated with FWW, CGA to bathroom, Pt stood at sink and completed grooming and oral hygiene with CGA for safety. Pt then ambulated to therapy gym with therapist CGA, using FWW. Pt then completed arm bike exercise at 15 cobian for 8 mins with no recovery breaks needed. To address fine motor, dexterity, and coordination, as well as strengthening of hands/fingers, pt completed a theraputty activtiy, retrieving beads by pulling and pushing into the putty, using medium/hard level of resistance, requiring skilled instruction for correct technique. Pt ambulated back to room FWW, CGA, and was left lying in bed, with phone and call light within reach. Therapy Code Descriptions/Definitions Functional [place] Measure: 0=Not Assessed/NA 4=Minimal Assistance 1=Total Assistance 5=Supervision or Setup 2=Maximal Assistance 6=Modified [place] 3=Moderate Assistance 7=Complete IndependenceSCALE: Activities may be completed with or without assistive devices. 3-Kmziwgxkzk-givvdvt completes the activity by him/herself with no assistance from a helper. 5-Set-up or Clean-up Assistance-helper sets up or cleans up; patient completes activity. [place] assists only prior to or following the activity. 4-Supervision or Touching Assistance-helper provides verbal cues and/or touching/steadying and/or contact guard assistance as patient completes activity. Assistance may be provided throughout the activity or intermittently. 3-Partial/Moderate Assistance-helper does LESS THAN HALF the effort. [place] l ifts, holds or supports trunk or limbs, but provides less than half the effort. 2-Substantial/Maximal Assistance-helper does MORE THAN HALF the effort. [place] lifts or holds trunk or limbs and provides more than half the effort. 8-Gyabdecrj-neffsc does ALL the effort. Patient does none of the effort to complete the activity. Or, the assistance of 2 or more helpers is required for t he patient to complete the activity. If activity was not attempted, code reason: 7-Patient Refused. 9-Not Applicable-not attempted and the patient did not perform the activity before the current illness, exacerbation or injury. 10-Not Attempted due to Environmental Limitations-(lack of equipment, weather restraints, etc.). 88-Not Attempted due to Medical Conditions or Safety Concerns. Oral Hygiene (QC): 4 Upper Body Dressing (QC): 5 Lower Body Dressing (QC): 5 On/Off Footwear: 5 Education OT Patient Education: Correct positioning, Disease process, Energy conservation, Progress toward Goal/Update tx plan, Purpose of tx/functional act ivities Teaching Recipient: Patient Teaching Methods: Discussion Response to Teaching: Verbalize Understanding OT Short Term Goals Short Term Goals Time Frame: Oct 04, 2022 Eatin Oral hygiene: 6 Upper body dressin OT Nursing Home Goals Corn Cutter Operator Goals Time Frame: Oct 13, 2022 Acute change in mental status: 0 Inattention: 0 Disorganized thinkin Altered level of consciousness: 0 Eating (QC): 6 Oral Hygiene (QC): 6 Toileting Hygiene (QC): 6 Shower/Bathe Self (QC): 6 Upper Body Dressing (QC): 6 Lower Body Dressing (QC): 6 On/Off Footwear (QC): 6 1=Demonstrate adherence to instructed precautions during ADL tasks. 2=Patient will verbalize/demonstrate understanding of assistive devices/modifications for ADL. 3=Patient will improve strength/tolerance for activity to enable patient to perform ADL's. OT Education/Plan Problem List/Assessment Assessment: Decreased Activ Tolerance, Decreased Safety Aware, Decreased UE Strength Discharge Recommendations Plan/Recommendations: Continue POC Treatment Plan/Plan of Care Patient would benefit from OT for education, treatment and training to promote independence in ADL's, mobility, safety and/or upper extremity function for ADL's. Plan of Care: ADL Retraining, Concurrent Therapy, Functional Mobility, Group Exercise/Act as Ind, UE Funct Exercise/Act Treatment Duration: Oct 13, 2022 Frequency: At least 5 of 7 days/Wk (IRF) Estimated Hrs Per Day: 1.5 hours per day Agreement: Yes Rehab Potential: Good Time Start Time: 10:30 Stop Time: 11:30 DATE: Oct 02, 2022 Total Time Billed (hr/min): 60 Billed Treatment Time 1 visit ADL 3 (45) EX 1 (15) Celsa Abreu COTA Oct 02, 2022 13:01
--- NOTE | 2022-10-02 14:57 | Therapy Group Daily Note ---
Therapy Daily Group Note Patient Education Topic ADL, Other List Below Exercises Walking, ROM Session Ratio (pt:therapist): 4:1 Goal of Session: Education on ARU Expectations, Memory Strategies Goal Met for this Session: Yes Pt Benefit of Group: Increased Functional Safety, Improved Cognition, Recognition of Peers, Socialization Other/Notes Pt was lying in bed upon arrival, pt agreed to group therapy. Pt requested to use restroom before, ambualted with FWW, SBA. Pt completed toileting and then ambulated to therapy gym with SBA FWW. Group consisted of memory strategies and ARU expectations, socialization, and a section of AROM. Pt introduced self appropriately and actively listened to peers. Pt was able to verbalize understanding of educational topic by answering questions on topic, and asking questions. Pt able to roll dice, to receive a question and participated well. After session, pt sitting in chair in room with call light/phone in reach. All needs met in room. Start Time: 13:00 Stop Time: 14:25 Total Billed Treatment Time: 85 Total Billed Treatment 1 [facility] Celsa Abreu COTA Oct 02, 2022 14:57
[2022-10-02 19:54] VITALS: BP 98/47
[2022-10-02] MEDS: ALPRAZolam 1 MG (XANAX) TAB PO SCH (21:40)
[2022-10-02] MEDS: ZOLPIDEM 5 MG (AMBIEN) TAB PO SCH (21:45)
[2022-10-02] MEDS: MONTELUKAST 10 MG (SINGULAIR) TAB PO SCH (21:45)
[2022-10-03] MEDS: HYDROcodone/APAP 7.5 MG/325 MG (LORTAB, LORCET PLUS) TABLET PO SCH ×4 (05:03→21:49)
[2022-10-03] MEDS: SUCRALFATE 1 GM (CARAFATE) TAB PO SCH ×4 (08:18→21:48)
[2022-10-03] MEDS: FERROUS SULF 325 MG (IRON) TAB PO SCH (08:18)
[2022-10-03] MEDS: PANTOPRAZOLE 40 MG (PROTONIX) TAB PO SCH (08:18)
[2022-10-03] MEDS: SENNA W/DOCUSATE (SENOKOT S) TABLET PO SCH ×2 (08:19→21:49)
[2022-10-03] MEDS: GABAPENTIN 600 MG (NEURONTIN) TAB PO SCH ×3 (08:19→21:48)
[2022-10-03] MEDS: VITAMIN D3 25 MCG (1,000 UNITS) TABLET PO SCH (08:19)
[2022-10-03] MEDS: DOCUSATE SODIUM 100 MG (COLACE) CAP PO SCH ×2 (08:19→21:49)
[2022-10-03] MEDS: MELOXICAM 7.5 MG (MOBIC) TABLET PO SCH ×2 (08:19→17:04)
[2022-10-03 08:34] VITALS: BP 106/51
--- NOTE | 2022-10-03 08:57 | Physical Therapy Daily Note ---
PT Daily Note-Current Subjective Pt in bed upon arrival and willing for therapy this day. pt was left in bed with call light and all needs met after therapy session this day. pt gives no report of pain. Pain Section J - Health Conditions 1. Rarely or not at all 2. Occasionally 3. Frequently 4. Almost constantly 8. Unable to answer Pain Effect on Sleep: 1 Pain Interference with Therapy: 3 Pain Interference w/Day-to-Day: 2 Mental Status Patient Orientation: Person, Place, Time, Situation Transfers SCALE: Activities may be completed with or without assistive devices. 0-Wfivwydswt-tduomfn completes the activity by him/herself with no assistance from a helper. 5-Set-up or Clean-up Assistance-helper sets up or cleans up; patient completes activity. [place] assists only prior to or following the activity. 4-Supervision or Touching Assistance-helper provides verbal cues and/or touching/steadying and/or contact guard assistance as patient completes acti vity. Assistance may be provided throughout the activity or intermittently. 3-Partial/Moderate Assistance-helper does LESS THAN HALF the effort. [place] lifts, holds or supports trunk or limbs, but provides less than half the effort. 2-Substantial/Maximal Assistance-helper does MORE THAN HALF the effort. [place] lifts or holds trunk or limbs and provides more than half the effort. 0-Celoltxuj-ndvjbv does ALL the effort. Patient does none of the effort to complete the activity. Or, the assistance of 2 or more helpers is required for the patient to complete the activity. If activity was not attempted, code reason: 7-Patient Refused. 9-Not Applicable-not attempted and the patient did not perform the activity before the current illness, exacerbation or injury. 10-Not Attempted due to Environmental Limitations-(lack of equipment, weather restraints, etc.). 88-Not Attempted due to Medical Conditions or Safety Concerns. Weight Bearing Right Lower Extremity: Right Weight Bearing/Tolerated Left Lower Extremity: Left Full Weight Bearing Exercises Seated Therapy Exercises: Sit to stand, Long arc quads, Hip flexion Standing: Marching, Sit to Stand, Side steps, Weight shifts Treatments Pt preformed ambulation of 200ft with 1 rest break secondary to fatigue. pt is able to preform sitting ther-ex in all planes of motion available with vc for sequencing of 15% and for 3 sets of 15. pt does requires rest in between each set for slight pain increased but pain does subside with rest. Assessment Current Status: Good Progress PT Half-Way Goals Half-Way Goals PT Cloth Tester Goals Time Frame: Oct 06, 2022 Roll Left & Right (QC): 6 (Mod I with functional mobility ) Sit to Lying (QC): 6 (Mod I with functional mobility ) Lying-Sitting on Side/Bed(QC): 6 (Mod I with functional mobility ) Sit to Stand (QC): 6 (Mod I with functional mobility ) Chair/Wra-sx-Utgef Xfer(QC): 6 (Mod I with functional mobility ) Toilet Transfer (QC): 6 (Mod I with functional mobility ) Car Transfer (QC): 6 (Mod I with functional mobility ) Does the Patient Walk: Yes Walk 10 feet (QC): 6 (Mod I with functional mobility ) Walk 50ft with 2 Turns (QC): 6 (Mod I with functional mobility ) Walk 150 ft (QC): 6 (Mod I with functional mobility ) Walking 10ft on Uneven Surface: 6 (Mod I with functional mobility ) 1 Step (curb) (QC): 6 (Mod I with functional mobility ) 4 Steps (QC): 6 (Mod I with functional mobility ) 12 Steps (QC): 6 (Mod I with functional mobility ) Picking up an Object (QC): 6 (Mod I with functional mobility ) Does the Pt use WC or Scooter?: No Wheel 50 feet with 2 turns (QC: 9 Type: N/A Wheel 150 feet: 9 Type: N/A PT Plan Treatment/Plan Treatment Plan: Continue Plan of Care Treatment Plan: Bed Mobility, Concurrent Therapy, Education, Functional Activity Nan, Functional Strength, Group Therapy, Gait, Safety, Therapeutic Exercise, Transfers Treatment Duration: Oct 06, 2022 Frequency: At least 5 of 7 days/Wk (IRF) Estimated Hrs Per Day: 1.5 hours per day Patient and/or Family Agrees t: Yes Time Time In: 0800 Time Out: 0900 DATE: Oct 03, 2022 Total Billed Treatment Time: 60 Total Billed Treatment 1 FA x 3 GT Sonia Cox SYSTEM OPERATOR Oct 03, 2022 08:57
--- NOTE | 2022-10-03 09:17 | PM&R Progress Note ---
Subjective HPI/CC On Admission Date Seen by Provider: Oct 03, 2022 Time Seen by Provider: 12:00 Subjective/Events-last exam 10/03/2022: Patient doing a lot better Daughter at the bedside Requesting discharge meds to be sent in on 10/02/2022: Patient doing a lot better Labs reviewed No pain right now No falls 10/01/2022: Patient doing a lot better Slow recovery Pain is controlled 09/30/2022: Patient doing a little better Slow recovery No falls Pain is pretty well controlled 09/29/2022: Patient doing a lot better Updated her on lab results Patient takes an iron pill daily Pain is pretty well controlled Slow recovery Review of Systems General: Fatigue, Malaise Objective Exam Vital Signs Vital Signs Date Time Temp Pulse Resp B/P (MAP) Pulse Ox O2 Delivery O2 Flow Rate FiO2 10/03/22 09:30 Room Air 10/03/22 08:34 36.7 80 18 106/51 (69) 96 Capillary Refill : General Appearance: No Apparent Distress, WD/WN, Chronically ill HEENT: PERRL/EOMI, Normal ENT Inspection, Pharynx Normal Neck: Full Range of Motion, Normal Inspection, Non Tender, Supple, Carotid Bruit Respiratory: Chest Non Tender, Lungs Clear, Normal Breath Sounds, No Accessory Muscle Use, No Respiratory Distress Cardiovascular: Regular Rate, Rhythm, No Edema, No Gallop, No JVD, No Murmur, Normal Peripheral Pulses Gastrointestinal: Normal Bowel Sounds, No Organomegaly, No Pulsatile Mass, Non Tender, Soft Back: Normal Inspection, No CVA Tenderness, No Vertebral Tenderness Extremity: Normal Capillary Refill, Normal Inspection, Normal Range of Motion (Limited range of motion right leg), Non Tender, No Calf Tenderness, No Pedal Edema Neurologic/Psychiatric: Alert, Oriented x3, No Motor/Sensory Deficits, Normal Mood/Affect, Abnormal Gait, Motor Weakness ( right leg weakness) Skin: Normal Color, Warm/Dry Lymphatic: No Adenopathy Results/Procedures Lab Patient resulted labs reviewed. FIM Transfers Therapy Code Descriptions/Definitions Functional [place] Measure: 0=Not Assessed/NA 4=Minimal Assistance 1=Total Assistance 5=Supervision or Setup 2=Maximal Assistance 6=Modified [place] 3=Moderate Assistance 7=Complete IndependenceSCALE: Activities may be completed with or without assistive devices. 7-Wlezmnynhh-rrmltlv completes the activity by him/herself with no assistance from a helper. 5-Set-up or Clean-up Assistance-helper sets up or cleans up; patient completes activity. [place] assists only prior to or following the activity. 4-Supervision or Touching Assistance-helper provides verbal cues and/or touching/steadying and/or contact guard assistance as patient completes activity. Assistance may be provided throughout the activity or intermittently. 3-Partial/Moderate Assistance-helper does LESS THAN HALF the effort. [place] lifts, holds or supports trunk or limbs, but provides less than half the effort. 2-Substantial/Maximal Assistance-helper does MORE THAN HALF the effort. [place] lifts or holds trunk or limbs and provides more than half the effort. 8-Gjsxmhfpw-tujchj does ALL the effort. Patient does none of the effort to complete the activity. Or, the assistance of 2 or more helpers is required for the patient to complete the activity. If activity was not attempted, code reason: 7-Patient Refused. 9-Not Applicable-not attempted and the patient did not perform the activity before the current illness, exacerbation or injury. 10-Not Attempted due to Environmental Limitations-(lack of equipment, weather restraints, etc.). 88-Not Attempted due to Medical Conditions or Safety Concerns. Roll Left to Right (QC): 3 (Min A) Sit to Lying (QC): 3 (Min A) Sit to Stand (QC): 5 Chair/Pus-vc-Fahat Xfer(QC): 4 (CGA ) Car Transfer (QC): 4 (CGA ) Gait Training Does the Patient Walk?: Yes Distance: 300' x 2 Walk 10 feet (QC): 5 Walk 50 ft with 2 Turns(QC): 5 Walk 150 ft (QC): 5 Walking 10ft/uneven surface-QC: 4 (CGA ) Gait Persons Needed: 1 Gait Assistive Device: FWW Wheelchair Training Does the Pt Use a Wheelchair?: No Wheel 50 ft with 2 turns (QC): 9 Wheel 150 ft (QC): 9 Type of Wheelchair: N/A Stair Training Stair Training: Handrails/: 1 handrail #of Steps: 6 1 Step (curb) (QC): 4 4 Steps (QC): 4 (CGA ) 12 Steps (QC): 4 (CGA ) Stairs: Pattern: Step to Balance Picking up an Object (QC): 4 (CGA ) ADL-Treatment Eating (QC): 6 Oral Hygiene (QC): 4 Shower/Bathe Self (QC): 4 Upper Body Dressing (QC): 5 Lower Body Dressing (QC): 5 On/Off Footwear (QC): 5 Toileting Hygiene (QC): 4 Assessment/Plan Assessment and Plan Assess & Plan/Chief Complaint Assessment: Status post right hip replacement Hospital Irritable bowel syndrome with flare Postop constipation Slow recovery due to pain Depression Postop acute blood loss anemia Plan: Supportive care Pain control Home meds PT and OT 09/29/2022: Supportive care Monitor closely 09/30/2022: Continue pain regimen Aggressive rehab 10/01/2022: Supportive care Pain control 10/02/2022: Supportive care Monitor closely 10/03/2022: Supportive care Continue aggressive therapy (1) Status post right hip replacement SHANNAN CALZADA DO Oct 03, 2022 09:17
[2022-10-03] MEDS: polyethylene glycoL POWDER 17 GM (MIRALAX) PACK PO SCH ×2 (09:23→21:49)
--- NOTE | 2022-10-03 11:18 | Occupational Ther Daily Note ---
OT Current Status-Daily Note Subjective Pt lying in bed upon arrival, agreed to OT. Alert and cooperative. No pain mentioned at this time. Showered offered, pt requested it at a later date. Mental Status/Objective Patient Orientation: Person, Place, Time, Situation ADL-Treatment Pt sat EOB independently, stood with FWW, supervision for safety. Pt ambulated with FWW to closet to retrieve clothing. Pt gathered clothing and handed to therapist to carry into the bathroom. Pt ambulated to bathroom with FWW, SBA for safety. Pt completed toilet transfer and toilet hygiene with SBA. Pt doffed clothing independently, and completed upper and lower body dressing while seated in the bathroom. Pt then ambulated to sink in bathroom to complete oral hygiene and grooming with SBA therapist. Pt ambulated to chair in room, FWW, SBA. Pt completed a functional activity with clothes pins to address strength required for ADLs. Pt also completed a cognitive functional activity, as well as fine motor, and dexterity, including an activity that required the pt to visually scan and match like items. Pt was left in chair in room, all needs met and call light and phone with in reach. Therapy Code Descriptions/Definitions Functional [place] Measure: 0=Not Assessed/NA 4=Minimal Assistance 1=Total Assistance 5=Supervision or Setup 2=Maximal Assistance 6=Modified [place] 3=Moderate Assistance 7=Complete IndependenceSCALE: Activities may be completed with or without assistive devices. 0-Pzhlnrkciu-ktouwkr completes the activity by him/herself with no assistance from a helper. 5-Set-up or Clean-up Assistance-helper sets up or cleans up; patient completes activity. [place] assists only prior to or following the activity. 4-Supervision or Touching Assistance-helper provides verbal cues and/or touching/steadying and/or contact guard assistance as patient completes activity. Assistance may be provided throughout the activity or intermittently. 3-Partial/Moderate Assistance-helper does LESS THAN HALF the effort. [place] lifts, holds or supports trunk or limbs, but provides less than half the effort. 2-Substantial/Maximal Assistance-helper does MORE THAN HALF the effort. [place] lifts or holds trunk or limbs and provides more than half the effort. 7-Vakcffpkz-kdscuc does ALL the effort. Patient does none of the effort to complete the activity. Or, the assistance of 2 or more helpers is required for the patient to complete the activity. If activity was not attempted, code reason: 7-Patient Refused. 9-Not Applicable-not attempted and the patient did not perform the activity before the current illness, exacerbation or injury. 10-Not Attempted due to Environmental Limitations-(lack of equipment, weather restraints, etc.). 88-Not Attempted due to Medical Conditions or Safety Concerns. Eating (QC): 6 Oral Hygiene (QC): 4 (SBA) Shower/Bathe Self (QC): 5 Upper Body Dressing (QC): 5 Lower Body Dressing (QC): 5 On/Off Footwear: 5 Toileting Hygiene (QC): 4 Toilet Transfer (QC): 4 Education OT Patient Education: Correct positioning, Progress toward Goal/Update tx plan, Purpose of tx/functional activities, Transfer techniques Teaching Recipient: Patient Teaching Methods: Discussion OT Short Term Goals Short Term Goals Time Frame: Oct 04, 2022 Eatin Oral hygiene: 6 Upper body dressin OT Prison Goals Prison Goals Time Frame: Oct 13, 2022 Acute change in mental status: 0 Inattention: 0 Disorganized thinkin Altered level of consciousness: 0 Eating (QC): 6 Oral Hygiene (QC): 6 Toileting Hygiene (QC): 6 Shower/Bathe Self (QC): 6 Upper Body Dressing (QC): 6 Lower Body Dressing (QC): 6 On/Off Footwear (QC): 6 1=Demonstrate adherence to instructed precautions during ADL tasks. 2=Patient will verbalize/demonstrate understanding of assistive devices/modifications for ADL. 3=Patient will improve strength/tolerance for activity to enable patient to perform ADL's. OT Education/Plan Problem List/Assessment Assessment: Decreased Activ Tolerance, Decreased UE Strength Discharge Recommendations Plan/Recommendations: Continue POC Treatment Plan/Plan of Care Patient would benefit from OT for education, treatment and training to promote independence in ADL's, mobility, safety and/or upper extremity function for ADL's. Plan of Care: ADL Retraining, Concurrent Therapy, Functional Mobility, Group Exercise/Act as Ind, UE Funct Exercise/Act Treatment Duration: Oct 13, 2022 Frequency: At least 5 of 7 days/Wk (IRF) Estimated Hrs Per Day: 1.5 hours per day Agreement: Yes Rehab Potential: Good Time Start Time: 10:15 Stop Time: 11:15 DATE: Oct 03, 2022 Total Time Billed (hr/min): 60 Billed Treatment Time 1 visit ADL 2 (30) FA (30) Celsa Abreu COTA Oct 03, 2022 11:17
--- NOTE | 2022-10-03 13:28 | Therapy Group Daily Note ---
Therapy Daily Group Note Patient Education Topic Home Safety, Other List Below (nutrition) Exercises LE Seated Exercise, UE Exercise Session Ratio (pt:therapist): 4:1 Goal of Session: Home Safety Strategies, UE/LE Strengthing Goal Met for this Session: Yes Pt Benefit of Group: Contributions to Others, F/U Use of Strategies @Home, Increased Functional Safety, Increased Functional Strength, Improved Cognition, Recognition of Peers, Socialization Other/Notes Pt ambulated using W to [facility] for OT/PT group. Group consisted of pt's socializing while eating lunch together, education on exercise/nutrition and B UE LE seated exercises. Pt actively listened to therapists and peers during session then participated appropriately with activities and exercises. Pt able to verbalize understanding of educational topics by verbalizing personal strategies and opinions. Pt able to complete own meal set up and use regular utensils to eat appropriately with peers. Tolerated B UE/LE exercises well. After session, pt sitting in recliner with call light/phone in reach. All needs met in room. Start Time: 12:00 Stop Time: 13:10 Total Billed Treatment Time: 70 Total Billed Treatment 1-GRP VANESSA DONNELLY Oct 03, 2022 13:28
[2022-10-03] MEDS: LACTULOSE SYRUP 10GM/15ML (ENULOSE) 30ML UDC PO PRN (18:14)
[2022-10-03] MEDS ORDERED: ASPI-1238 PO (19:06)
[2022-10-03] MEDS ORDERED: SUCR1TAB PO (19:06)
[2022-10-03] MEDS ORDERED: NF-ZOL12.5 PO (19:06)
[2022-10-03] MEDS ORDERED: CITA40TA13 PO (19:06)
[2022-10-03] MEDS ORDERED: ALPR1TAB7 PO (19:06)
[2022-10-03] MEDS ORDERED: ACET-2267 PO (19:06)
[2022-10-03] MEDS ORDERED: TIZA-186 PO (19:06)
[2022-10-03] MEDS ORDERED: GBPN600T PO (19:06)
[2022-10-03] MEDS ORDERED: LOPE-175 PO (19:06)
[2022-10-03] MEDS ORDERED: HYDR-3817 PO (19:06)
[2022-10-03] MEDS ORDERED: OMEP40CA6 PO (19:06)
[2022-10-03] MEDS ORDERED: MELO7.5T46 PO (19:06)
[2022-10-03] MEDS ORDERED: DOCU100C37 PO (19:06)
[2022-10-03] MEDS ORDERED: ATOR40TA70 PO (19:06)
[2022-10-03] MEDS ORDERED: FERR-74 PO (19:06)
[2022-10-03] MEDS ORDERED: TRAM50TA3 PO (19:06)
[2022-10-03] MEDS ORDERED: MTP25TSR PO (19:06)
[2022-10-03] MEDS ORDERED: ONDA4TAB11 SL (19:06)
[2022-10-03] MEDS ORDERED: MONT-40 PO (19:06)
[2022-10-03 20:01] VITALS: BP 93/59
[2022-10-03] MEDS: ZOLPIDEM 5 MG (AMBIEN) TAB PO SCH (21:48)
[2022-10-03] MEDS: ALPRAZolam 1 MG (XANAX) TAB PO SCH (21:48)
[2022-10-03] MEDS: MONTELUKAST 10 MG (SINGULAIR) TAB PO SCH (21:49)
[2022-10-04] MEDS: HYDROcodone/APAP 7.5 MG/325 MG (LORTAB, LORCET PLUS) TABLET PO SCH ×2 (05:57→10:03)
--- NOTE | 2022-10-04 06:04 | PM&R Progress Note ---
Subjective HPI/CC On Admission Date Seen by Provider: Oct 04, 2022 Time Seen by Provider: 12:00 Subjective/Events-last exam 10/04/2022: Patient doing much better would like to discharge tomorrow No falls 10/03/2022: Patient doing a lot better Daughter at the bedside Requesting discharge meds to be sent in on 10/02/2022: Patient doing a lot better Labs reviewed No pain right now No falls 10/01/2022: Patient doing a lot better Slow recovery Pain is controlled 09/30/2022: Patient doing a little better Slow recovery No falls Pain is pretty well controlled 09/29/2022: Patient doing a lot better Updated her on lab results Patient takes an iron pill daily Pain is pretty well controlled Slow recovery Review of Systems General: Fatigue, Malaise Objective Exam Vital Signs Vital Signs Date Time Temp Pulse Resp B/P (MAP) Pulse Ox O2 Delivery O2 Flow Rate FiO2 10/04/22 19:57 36.2 71 20 101/64 (76) 98 Room Air Capillary Refill : General Appearance: No Apparent Distress, WD/WN, Chronically ill HEENT: PERRL/EOMI, Normal ENT Inspection, Pharynx Normal Neck: Full Range of Motion, Normal Inspection, Non Tender, Supple, Carotid Bruit Respiratory: Chest Non Tender, Lungs Clear, Normal Breath Sounds, No Accessory Muscle Use, No Respiratory Distress Cardiovascular: Regular Rate, Rhythm, No Edema, No Gallop, No JVD, No Murmur, Normal Peripheral Pulses Gastrointestinal: Normal Bowel Sounds, No Organomegaly, No Pulsatile Mass, Non Tender, Soft Back: Normal Inspection, No CVA Tenderness, No Vertebral Tenderness Extremity: Normal Capillary Refill, Normal Inspection, Normal Range of Motion (Limited range of motion right leg), Non Tender, No Calf Tenderness, No Pedal Edema Neurologic/Psychiatric: Alert, Oriented x3, No Motor/Sensory Deficits, Normal Mood/Affect, Abnormal Gait, Motor Weakness ( right leg weakness) Skin: Normal Color, Warm/Dry Lymphatic: No Adenopathy Results/Procedures Lab Patient resulted labs reviewed. FIM Transfers Therapy Code Descriptions/Definitions Functional [place] Measure: 0=Not Assessed/NA 4=Minimal Assistance 1=Total Assistance 5=Supervision or Setup 2=Maximal Assistance 6=Modified [place] 3=Moderate Assistance 7=Complete IndependenceSCALE: Activities may be completed with or without assistive devices. 0-Ufisebiuej-gizvmoa completes the activity by him/herself with no assistance from a helper. 5-Set-up or Clean-up Assistance-helper sets up or cleans up; patient completes activity. [place] assists only prior to or following the activity. 4-Supervision or Touching Assistance-helper provides verbal cues and/or touching/steadying and/or contact guard assistance as patient completes activity. Assistance may be provided throughout the activity or intermittently. 3-Partial/Moderate Assistance-helper does LESS THAN HALF the effort. [place] lifts, holds or supports trunk or limbs, but provides less than half the effort. 2-Substantial/Maximal Assistance-helper does MORE THAN HALF the effort. [place] lifts or holds trunk or limbs and provides more than half the effort. 9-Jwkryvhnd-hyjilx does ALL the effort. Patient does none of the effort to complete the activity. Or, the assistance of 2 or more helpers is required for the patient to complete the activity. If activity was not attempted, code reason: 7-Patient Refused. 9-Not Applicable-not attempted and the patient did not perform the activity befo re the current illness, exacerbation or injury. 10-Not Attempted due to Environmental Limitations-(lack of equipment, weather re straints, etc.). 88-Not Attempted due to Medical Conditions or Safety Concerns. Roll Left to Right (QC): 3 (Min A) Sit to Lying (QC): 3 (Min A) Sit to Stand (QC): 5 Chair/Ghk-uo-Vouug Xfer(QC): 4 (CGA ) Car Transfer (QC): 4 (CGA ) Gait Training Does the Patient Walk?: Yes Distance: 300' x 2 Walk 10 feet (QC): 5 Walk 50 ft with 2 Turns(QC): 5 Walk 150 ft (QC): 5 Walking 10ft/uneven surface-QC: 4 (CGA ) Gait Persons Needed: 1 Gait Assistive Device: FWW Wheelchair Training Does the Pt Use a Wheelchair?: No Wheel 50 ft with 2 turns (QC): 9 Wheel 150 ft (QC): 9 Type of Wheelchair: N/A Stair Training Stair Training: Handrails/: 1 handrail #of Steps: 6 1 Step (curb) (QC): 4 4 Steps (QC): 4 (CGA ) 12 Steps (QC): 4 (CGA ) Stairs: Pattern: Step to Balance Picking up an Object (QC): 4 (CGA ) ADL-Treatment Eating (QC): 6 Oral Hygiene (QC): 4 (SBA) Shower/Bathe Self (QC): 5 Upper Body Dressing (QC): 5 Lower Body Dressing (QC): 5 On/Off Footwear (QC): 5 Toileting Hygiene (QC): 4 Toilet Transfer (QC): 4 Assessment/Plan Assessment and Plan Assess & Plan/Chief Complaint Assessment: Status post right hip replacement Hospital Irritable bowel syndrome with flare Postop constipation Slow recovery due to pain Depression Postop acute blood loss anemia Plan: Supportive care Pain control Home meds PT and OT 09/29/2022: Supportive care Monitor closely 09/30/2022: Continue pain regimen Aggressive rehab 10/01/2022: Supportive care Pain control 10/02/2022: Supportive care Monitor closely 10/03/2022: Supportive care Continue aggressive therapy 10/04/2022: Supportive care Discharge home tomorrow (1) Status post right hip replacement SHANNAN CALZADA DO Oct 04, 2022 06:04
[2022-10-04 08:00] VITALS: BP 117/54
[2022-10-04] MEDS: FERROUS SULF 325 MG (IRON) TAB PO SCH (09:23)
[2022-10-04] MEDS: PANTOPRAZOLE 40 MG (PROTONIX) TAB PO SCH (09:24)
[2022-10-04] MEDS: DOCUSATE SODIUM 100 MG (COLACE) CAP PO SCH ×2 (09:24→19:55)
[2022-10-04] MEDS: MELOXICAM 7.5 MG (MOBIC) TABLET PO SCH ×2 (09:24→17:07)
[2022-10-04] MEDS: SUCRALFATE 1 GM (CARAFATE) TAB PO SCH ×4 (09:24→21:30)
[2022-10-04] MEDS: GABAPENTIN 600 MG (NEURONTIN) TAB PO SCH ×3 (09:24→21:29)
[2022-10-04] MEDS: VITAMIN D3 25 MCG (1,000 UNITS) TABLET PO SCH (09:24)
[2022-10-04] MEDS: SENNA W/DOCUSATE (SENOKOT S) TABLET PO SCH ×2 (09:27→19:56)
[2022-10-04] MEDS: polyethylene glycoL POWDER 17 GM (MIRALAX) PACK PO SCH ×2 (09:29→19:55)
--- NOTE | 2022-10-04 09:58 | Occupational Ther Daily Note ---
OT Current Status-Daily Note Subjective Pt sitting up in bed upon arrival, agreed to therapy, alert and cooperative. Stated pain about 3/10 after moving around and completing ADLs. ADL-Treatment Pt eating Independently. Pt completes all ADLs independently with therapist in room for any needs pt may need. Therapist recommended student services coordinator/grabber for use when home at [facility]. Pt completed shower, dressing, grooming and oral care at [facility]. Pt then ambulated out of room with FWW, independently. To address pt functional endurance, and functional mobility, pt walked with therapist around ARU. Pt required 2 recovery breaks during walk. Pt ambulated back to room with FWW, independently, and sat EOB. Pt transferred into bed with no assist required and was left with call light and phone within reach, all needs met. Therapy Code Descriptions/Definitions Functional [place] Measure: 0=Not Assessed/NA 4=Minimal Assistance 1=Total Assistance 5=Supervision or Setup 2=Maximal Assistance 6=Modified [place] 3=Moderate Assistance 7=Complete IndependenceSCALE: Activities may be completed with or without assistive devices. 3-Xnkmucrmhm-fkmntjf completes the activity by him/herself with no assistance from a helper. 5-Set-up or Clean-up Assistance-helper sets up or cleans up; patient completes activity. [place] assists only prior to or following the activity. 4-Supervision or Touching Assistance-helper provides verbal cues and/or touching/steadying and/or contact guard assistance as patient completes activity. Assistance may be provided throughout the activity or intermittently. 3-Partial/Moderate Assistance-helper does LESS THAN HALF the effort. [place] lifts, holds or supports trunk or limbs, but provides less than half the effort. 2-Substantial/Maximal Assistance-helper does MORE THAN HALF the effort. [place] lifts or holds trunk or limbs and provides more than half the effort. 9-Lkefynkdo-advlot does ALL the effort. Patient does none of the effort to complete the activity. Or, the assistance of 2 or more helpers is required for the patient to complete the activity. If activity was not attempted, code reason: 7-Patient Refused. 9-Not Applicable-not attempted and the patient did not perform the activity before the current illness, exacerbation or injury. 10-Not Attempted due to Environmental Limitations-(lack of equipment, weather restraints, etc.). 88-Not Attempted due to Medical Conditions or Safety Concerns. Eating (QC): 6 Oral Hygiene (QC): 6 Shower/Bathe Self (QC): 6 Upper Body Dressing (QC): 6 Lower Body Dressing (QC): 6 On/Off Footwear: 6 Toileting Hygiene (QC): 6 Toilet Transfer (QC): 6 BIMS CAM BIMS Expression of Ideas and Wants: Without Difficulty Understanding Verbal Content: Understands Brief Interview/Mental Status: Yes IRF ELPIDIO BIMS: IRF ELPIDIO BIMS Response (Comments) Value Repitition of Three Words Three 3 Recalls Socks Yes, No Cue Required 2 Recalls Blue Yes, No Cue Required 2 Recalls Bed Yes, No Cue Required 2 Year Correct 3 Day Correct 1 Total 13 Patient Normally Able to Recal: Current Session, Location of own room, Staff Names and faces, That he/she in a hsp Should Staff Asses. Mental St.: No Memory/Recall Ability: Current Season, Location of Own Room, Staff Names and Faces, That He/She in Hospitall CAM Mental Status Change/Baseline: 0 Inattention: 0 Disorganized thinkin Altered level of consciousness: 0 OT Short Term Goals Short Term Goals Time Frame: Oct 04, 2022 Eatin Oral hygiene: 6 Upper body dressin OT Research Neuropsychologist Goals Research Neuropsychologist Goals Time Frame: Oct 13, 2022 Acute change in mental status: 0 Inattention: 0 Disorganized thinkin Altered level of consciousness: 0 Eating (QC): 6 (met) Oral Hygiene (QC): 6 (met) Toileting Hygiene (QC): 6 (met) Shower/Bathe Self (QC): 6 (met) Upper Body Dressing (QC): 6 (met) Lower Body Dressing (QC): 6 (met) On/Off Footwear (QC): 6 (met) 1=Demonstrate adherence to instructed precautions during ADL tasks. 2=Patient will verbalize/demonstrate understanding of assistive devices/modifications for ADL. 3=Patient will improve strength/tolerance for activity to enable patient to perform ADL's. OT Education/Plan Problem List/Assessment Assessment: Decreased Activ Tolerance Discharge Recommendations Plan/Recommendations: Continue POC Treatment Plan/Plan of Care Patient would benefit from OT for education, treatment and training to promote independence in ADL's, mobility, safety and/or upper extremity function for ADL's. Plan of Care: ADL Retraining, Concurrent Therapy, Functional Mobility, Group Exercise/Act as Ind, UE Funct Exercise/Act Treatment Duration: Oct 13, 2022 Frequency: At least 5 of 7 days/Wk (IRF) Estimated Hrs Per Day: 1.5 hours per day Agreement: Yes Rehab Potential: Good Time Start Time: 07:45 Stop Time: 09:20 DATE: Oct 04, 2022 Total Time Billed (hr/min): 95 Billed Treatment Time 1 visit ADL 5 (80) FA 1( 15) Celsa Abreu COTA Oct 04, 2022 09:58
[2022-10-04] MEDS ORDERED: GBPN600T PO (11:38)
[2022-10-04] MEDS ORDERED: NF-ZOL12.5 PO (11:38)
[2022-10-04] MEDS ORDERED: ONDA4TAB11 SL (11:38)
[2022-10-04] MEDS ORDERED: ATOR40TA70 PO (11:38)
[2022-10-04] MEDS ORDERED: DOCU100C37 PO (11:38)
[2022-10-04] MEDS ORDERED: MELO7.5T46 PO (11:38)
[2022-10-04] MEDS ORDERED: FERR-74 PO (11:38)
[2022-10-04] MEDS ORDERED: ALPR1TAB7 PO (11:38)
[2022-10-04] MEDS ORDERED: HYDR-3817 PO (11:38)
[2022-10-04] MEDS ORDERED: MONT-40 PO (11:38)
[2022-10-04] MEDS ORDERED: OMEP40CA6 PO (11:38)
[2022-10-04] MEDS ORDERED: ASPI-1238 PO (11:38)
[2022-10-04] MEDS ORDERED: CITA40TA13 PO (11:38)
[2022-10-04] MEDS ORDERED: LOPE-175 PO (11:38)
[2022-10-04] MEDS ORDERED: TRAM50TA3 PO (11:38)
[2022-10-04] MEDS ORDERED: SUCR1TAB PO (11:38)
[2022-10-04] MEDS ORDERED: MTP25TSR PO (11:38)
[2022-10-04] MEDS ORDERED: ACET-2267 PO (11:38)
[2022-10-04] MEDS ORDERED: TIZA-186 PO (11:38)
--- NOTE | 2022-10-04 12:02 | Physical Therapy Daily Note ---
PT Daily Note-Current Subjective pt in room in bed upon arrival and willing for therapy. pt reports 2/10 pain and nursing was bringing her pain med shortly. pt was left in bed at the end of session with call light and all needs met this day. Pain Section J - Health Conditions 1. Rarely or not at all 2. Occasionally 3. Frequently 4. Almost constantly 8. Unable to answer Pain Effect on Sleep: 1 Pain Interference with Therapy: 1 Pain Interference w/Day-to-Day: 2 Transfers SCALE: Activities may be completed with or without assistive devices. 8-Pvknqbccab-pycvsxt completes the activity by him/herself with no assistance from a helper. 5-Set-up or Clean-up Assistance-helper sets up or cleans up; patient completes activity. [place] assists only prior to or following the activity. 4-Supervision or Touching Assistance-helper provides verbal cues and/or touching/steadying and/or contact guard assistance as patient completes activity. Assistance may be provided throughout the activity or intermittently. 3-Partial/Moderate Assistance-helper does LESS THAN HALF the effort. [place] lifts, holds or supports trunk or limbs, but provides less than half the effort. 2-Substantial/Maximal Assistance-helper does MORE THAN HALF the effort. [place] lifts or holds trunk or limbs and provides more than half the effort. 0-Dmzcqazxr-wvdlvv does ALL the effort. Patient does none of the effort to complete the activity. Or, the assistance of 2 or more helpers is required for the patient to complete the activity. If activity was not attempted, code reason: 7-Patient Refused. 9-Not Applicable-not attempted and the patient did not perform the activity before the current illness, exacerbation or injury. 10-Not Attempted due to Environmental Limitations-(lack of equipment, weather restraints, etc.). 88-Not Attempted due to Medical Conditions or Safety Concerns. Roll Left & Right (QC): 6 Sit to Lying (QC): 6 Lying to Sitting/Side of Bed(Q: 6 Sit to Stand (QC): 6 Chair/Oly-rs-Rfeve Xfer(QC): 6 Toilet Transfer (QC): 6 Car Transfer (QC): 5 Weight Bearing Right Lower Extremity: Right Weight Bearing/Tolerated Left Lower Extremity: Left Full Weight Bearing Gait Training Walk 10 feet (QC): 6 Walk 50 ft with 2 Turns(QC): 6 Walk 150 ft (QC): 6 Walking 10ft/uneven surface-QC: 6 Wheelchair Training Wheel 50 ft with 2 turns (QC): 9 Wheel 150 ft (QC): 9 Stair Training 1 Step (curb) (QC): 6 4 Steps (QC): 6 12 Steps (QC): 6 Balance Picking up an Object (QC): 6 Treatments PT is able to preform QC independently except for car transfers and someone does need to set up walker for pt getting in and out of the car when transporting the walker. Assessment Current Status: Excellent Progress PT Medical Territory Manager Goals [facility] Goals PT Medical Territory Manager Goals Time Frame: Oct 06, 2022 Roll Left & Right (QC): 6 (Mod I with functional mobility ) Sit to Lying (QC): 6 (Mod I with functional mobility ) Lying-Sitting on Side/Bed(QC): 6 (Mod I with functional mobility ) Sit to Stand (QC): 6 (Mod I with functional mobility ) Chair/Yjp-va-Yibpi Xfer(QC): 6 (Mod I with functional mobility ) Toilet Transfer (QC): 6 (Mod I with functional mobility ) Car Transfer (QC): 6 (Mod I with functional mobility ) Does the Patient Walk: Yes Walk 10 feet (QC): 6 (Mod I with functional mobility ) Walk 50ft with 2 Turns (QC): 6 (Mod I with functional mobility ) Walk 150 ft (QC): 6 (Mod I with functional mobility ) Walking 10ft on Uneven Surface: 6 (Mod I with functional mobility ) 1 Step (curb) (QC): 6 (Mod I with functional mobility ) 4 Steps (QC): 6 (Mod I with functional mobility ) 12 Steps (QC): 6 (Mod I with functional mobility ) Picking up an Object (QC): 6 (Mod I with functional mobility ) Does the Pt use WC or Scooter?: No Wheel 50 feet with 2 turns (QC: 9 Type: N/A Wheel 150 feet: 9 Type: N/A PT Plan Treatment/Plan Treatment Plan: Continue Plan of Care Treatment Plan: Bed Mobility, Concurrent Therapy, Education, Functional Activity Nan, Functional Strength, Group Therapy, Gait, Safety, Therapeutic Exercise, Transfers Treatment Duration: Oct 06, 2022 Frequency: At least 5 of 7 days/Wk (IRF) Estimated Hrs Per Day: 1.5 hours per day Patient and/or Family Agrees t: Yes Time Time In: 929 Time Out: 1030 DATE: Oct 04, 2022 Total Billed Treatment Time: 60 Total Billed Treatment 1 gt FA x 3 Sonia Cox EMPLOYEE BENEFITS COORDINATOR Oct 04, 2022 12:01
--- NOTE | 2022-10-04 14:35 | Physical Therapy Daily Note ---
PT Daily Note-Current Subjective pt in bed upon arrival and willing for therapy. nursing was giving RX. pt reports "mild" pain and could not rate. pt was left in bed after therapy session with call light and all needs met. Pain Section J - Health Conditions 1. Rarely or not at all 2. Occasionally 3. Frequently 4. Almost constantly 8. Unable to answer Pain Effect on Sleep: 1 Pain Interference with Therapy: 1 Pain Interference w/Day-to-Day: 2 Mental Status Patient Orientation: Person, Place, Time, Situation Transfers SCALE: Activities may be completed with or without assistive devices. 5-Lltkajfenu-zgtradn completes the activity by him/herself with no assistance from a helper. 5-Set-up or Clean-up Assistance-helper sets up or cleans up; patient completes activity. [place] assists only prior to or following the activity. 4-Supervision or Touching Assistance-helper provides verbal cues and/or touching/steadying and/or contact guard assistance as patient completes activity. Assistance may be provided throughout the activity or intermittently. 3-Partial/Moderate Assistance-helper does LESS THAN HALF the effort. [place] lifts, holds or supports trunk or limbs, but provides less than half the effort. 2-Substantial/Maximal Assistance-helper does MORE THAN HALF the effort. [place] lifts or holds trunk or limbs and provides more than half the effort. 0-Bqgriwvsc-idgxln does ALL the effort. Patient does none of the effort to complete the activity. Or, the assistance of 2 or more helpers is required for the patient to complete the activity. If activity was not attempted, code reason: 7-Patient Refused. 9-Not Applicable-not attempted and the patient did not perform the activity before the current illness, exacerbation or injury. 10-Not Attempted due to Environmental Limitations-(lack of equipment, weather restraints, etc.). 88-Not Attempted due to Medical Conditions or Safety Concerns. Weight Bearing Right Lower Extremity: Right Weight Bearing/Tolerated Left Lower Extremity: Left Full Weight Bearing Treatments pt was able to ambulate 50 ft with RW and independence x 2. pt was able to preform NU-step for 10 mins at level one for increased endurance. Assessment Current Status: Excellent Progress PT Custodial Goals Custodial Goals PT Custodial Goals Time Frame: Oct 06, 2022 Roll Left & Right (QC): 6 (Mod I with functional mobility ) Sit to Lying (QC): 6 (Mod I with functional mobility ) Lying-Sitting on Side/Bed(QC): 6 (Mod I with functional mobility ) Sit to Stand (QC): 6 (Mod I with functional mobility ) Chair/Dov-tm-Xvnsu Xfer(QC): 6 (Mod I with functional mobility ) Toilet Transfer (QC): 6 (Mod I with functional mobility ) Car Transfer (QC): 6 (Mod I with functional mobility ) Does the Patient Walk: Yes Walk 10 feet (QC): 6 (Mod I with functional mobility ) Walk 50ft with 2 Turns (QC): 6 (Mod I with functional mobility ) Walk 150 ft (QC): 6 (Mod I with functional mobility ) Walking 10ft on Uneven Surface: 6 (Mod I with functional mobility ) 1 Step (curb) (QC): 6 (Mod I with functional mobility ) 4 Steps (QC): 6 (Mod I with functional mobility ) 12 Steps (QC): 6 (Mod I with functional mobility ) Picking up an Object (QC): 6 (Mod I with functional mobility ) Does the Pt use WC or Scooter?: No Wheel 50 feet with 2 turns (QC: 9 Type: N/A Wheel 150 feet: 9 Type: N/A PT Plan Treatment/Plan Treatment Plan: Continue Plan of Care Treatment Plan: Bed Mobility, Concurrent Therapy, Education, Functional Activity Nan, Functional Strength, Group Therapy, Gait, Safety, Therapeutic Exercise, Transfers Treatment Duration: Oct 06, 2022 Frequency: At least 5 of 7 days/Wk (IRF) Estimated Hrs Per Day: 1.5 hours per day Patient and/or Family Agrees t: Yes Time Time In: 1300 Time Out: 1330 DATE: Oct 04, 2022 Total Billed Treatment Time: 30 Total Billed Treatment 1 Gt EX Sonia Cox TELEPHONE SERVICES SALES REPRESENTATIVE Oct 04, 2022 14:35
[2022-10-04] MEDS: HYDROcodone/APAP 7.5 MG/325 MG (LORTAB, LORCET PLUS) TABLET PO PRN (18:36)
[2022-10-04 19:57] VITALS: BP 101/64
[2022-10-04] MEDS: ALPRAZolam 1 MG (XANAX) TAB PO SCH (21:29)
[2022-10-04] MEDS: ZOLPIDEM 5 MG (AMBIEN) TAB PO SCH (21:30)
[2022-10-04] MEDS: MONTELUKAST 10 MG (SINGULAIR) TAB PO SCH (21:30)
[2022-10-05] MEDS: HYDROcodone/APAP 7.5 MG/325 MG (LORTAB, LORCET PLUS) TABLET PO PRN ×2 (00:55→08:48)
--- NOTE | 2022-10-05 05:43 | Discharge Summary ---
Diagnosis/Chief Complaint Date of Admission Sep 28, 2022 at 14:15 Date of Discharge Discharge Date: Oct 05, 2022 Discharge Diagnosis Assessment: Status post right hip replacement Hospital Irritable bowel syndrome with flare Postop constipation Slow recovery due to pain Depression Postop acute blood loss anemia Plan: Supportive care Pain control Home meds PT and OT 09/29/2022: Supportive care Monitor closely 09/30/2022: Continue pain regimen Aggressive rehab 10/01/2022: Supportive care Pain control 10/02/2022: Supportive care Monitor closely 10/03/2022: Supportive care Continue aggressive therapy 10/04/2022: Supportive care Discharge home tomorrow (1) Status post right hip replacement Discharge Summary Discharge Physical Examination Allergies: Coded Allergies: No Allergy Information Available (Unverified , 09/28/22) Vitals & I&Os Vital Signs Date Time Temp Pulse Resp B/P (MAP) Pulse Ox O2 Delivery O2 Flow Rate FiO2 10/05/22 11:57 36.0 80 14 110/55 97 Room Air General Appearance: Alert, Oriented X3, Cooperative Respiratory: Clear to Auscultation Cardiovascular: Regular Rate Psych/Mental Status: Mental Status NL Hospital Course Was the Problem List Reviewed?: Yes Patient had an uneventful hospital course after she was moved from [facility] following an uncomplicated joint replacement but had very slow recovery. Her labs stabilized work-up for anemia resulted in stable iron level which she supplements every day. Pain control was obtained. No severe concerns during her hospital stay and she was deemed stable for discharge. Labs (last 24 hrs) Laboratory Tests 09/29/22 05:32: White Blood Count 14.8H, Red Blood Count 2.75L, Hemoglobin 8.0L, Hematocrit 26L, Mean Corpuscular Volume 94, Mean Corpuscular Hemoglobin 29, Mean Corpuscular Hemoglobin Concent 31L, Red Cell Distribution Width 14.1, Platelet Count 205, Mean Platelet Volume 9.7, Immature Granulocyte % (Auto) 0, Neutrophils (%) (Auto) 73, Lymphocytes (%) (Auto) 19, Monocytes (%) (Auto) 8, Eosinophils (%) (Auto) 0, Basophils (%) (Auto) 0, Neutrophils # (Auto) 10.7H, Lymphocytes # (Auto) 2.7, Monocytes # (Auto) 1.2H, Eosinophils # (Auto) 0.0, Basophils # (Auto) 0.0, Immature Granulocyte # (Auto) 0.1, Neutrophils % (Manual) 80, Lymphocytes % (Manual) 15, Monocytes % (Manual) 5, Blood Morphology Comment NORMAL, Sodium Level 140, Potassium Level 4.4, Chloride Level 111H, Carbon Dioxide Level 21, Anion Gap 8, Blood Urea Nitrogen 30H, Creatinine 1.20, Estimat Glomerular Filtration Rate 48, BUN/Creatinine Ratio 25, Glucose Level 106H, Calcium Level 8.8, Corrected Calcium 9.3, Iron Level 53, Total Bilirubin 0.2, Aspartate Amino Transf (AST/SGOT) 112H, Alanine Aminotransferase (ALT/SGPT) 61H, Alkaline Phosphatase 63, Total Protein 6.0L, Albumin 3.4, Vitamin B12 Level 618 10/02/22 05:22: White Blood Count 9.2, Red Blood Count 2.74L, Hemoglobin 8.2L, Hematocrit 26L, Mean Corpuscular Volume 96, Mean Corpuscular Hemoglobin 30, Mean Corpuscular Hemoglobin Concent 31L, Red Cell Distribution Width 14.6H, Platelet Count 250, Mean Platelet Volume 9.5, Immature Granulocyte % (Auto) 1, Neutrophils (%) (Auto) 47, Lymphocytes (%) (Auto) 39, Monocytes (%) (Auto) 8, Eosinophils (%) (Auto) 6, Basophils (%) (Auto) 0, Neutrophils # (Auto) 4.3, Lymphocytes # (Auto) 3.5, Monocytes # (Auto) 0.7, Eosinophils # (Auto) 0.6H, Basophils # (Auto) 0.0, Immature Granulocyte # (Auto) 0.1, Sodium Level 138, Potassium Level 4.8, Chloride Level 108H, Carbon Dioxide Level 23, Anion Gap 7, Blood Urea Nitrogen 31H, Creatinine 1.30, Estimat Glomerular Filtration Rate 43, BUN/Creatinine Rati o 24, Glucose Level 91, Calcium Level 8.9, Corrected Calcium 9.6, Total Bilirubin 0.4, Aspartate Amino Transf (AST/SGOT) 19, Alanine Aminotransferase (ALT/SGPT) 18, Alkaline Phosphatase 56, Total Protein 5.7L, Albumin 3.1L Pending Labs Laboratory Tests 09/29/22 05:32: White Blood Count 14.8, Red Blood Count 2.75, Hemoglobin 8.0, Hematocrit 26, Mean Corpuscular Volume 94, Mean Corpuscular Hemoglobin 29, Mean Corpuscular Hemoglobin Concent 31, Red Cell Distribution Width 14.1, Platelet Count 205, Mean Platelet Volume 9.7, Immature Granulocyte % (Auto) 0, Neutrophils (%) (Auto) 73, Lymphocytes (%) (Auto) 19, Monocytes (%) (Auto) 8, Eosinophils (%) (Auto) 0, Basophils (%) (Auto) 0, Neutrophils # (Auto) 10.7, Lymphocytes # (Auto) 2.7, Monocytes # (Auto) 1.2, Eosinophils # (Auto) 0.0, Basophils # (Auto) 0.0, Immature Granulocyte # (Auto) 0.1, Neutrophils % (Manual) 80, Lymphocytes % (Manual) 15, Monocytes % (Manual) 5, Blood Morphology Comment NORMAL, Sodium Level 140, Potassium Level 4.4, Chloride Level 111, Carbon Dioxide Level 21, Anion Gap 8, Blood Urea Nitrogen 30, Creatinine 1.20, Estimat Glomerular Filtration Rate 48, BUN/Creatinine Ratio 25, Glucose Level 106, Calcium Level 8.8, Corrected Calcium 9.3, Iron Level 53, Total Bilirubin 0.2, Aspartate Amino Transf (AST/SGOT) 112, Alanine Aminotransferase (ALT/SGPT) 61, Alkaline Phosphatase 63, Total Protein 6.0, Albumin 3.4, Vitamin B12 Level 618 10/02/22 05:22: White Blood Count 9.2, Red Blood Count 2.74, Hemoglobin 8.2, Hematocrit 26, Mean Corpuscular Volume 96, Mean Corpuscular Hemoglobin 30, Mean Corpuscular Hemoglobin Concent 31, Red Cell Distribution Width 14.6, Platelet Count 250, Mean Platelet Volume 9.5, Immature Granulocyte % (Auto) 1, Neutrophils (%) (Auto) 47, Lymphocytes (%) (Auto) 39, Monocytes (%) (Auto) 8, Eosinophils (%) (Auto) 6, Basophils (%) (Auto) 0, Neutrophils # (Auto) 4.3, Lymphocytes # (Auto) 3.5, Monocytes # (Auto) 0.7, Eosinophils # (Auto) 0.6, Basophils # (Auto) 0.0, Immature Granulocyte # (Auto) 0.1, Sodium Level 138, Potassium Level 4.8, Chloride Level 108, Carbon Dioxide Level 23, Anion Gap 7, Blood Urea Nitrogen 31, Creatinine 1.30, Estimat Glomerular Filtration Rate 43, BUN/Creatinine Ratio 24, Glucose Level 91, Calcium Level 8.9, Corrected Calcium 9.6, Total Bilirubin 0.4, Aspartate Amino Transf (AST/SGOT) 19, Alanine Aminotransferase (ALT/SGPT) 18, Alkaline Phosphatase 56, Total Protein 5.7, Albumin 3.1 Discharge Home Medications: Active Scripts Active Zolpidem Tartrate ER (Zolpidem Tartrate) 12.5 Mg Tab.mphase 12.5 Mg PO HS Tizanidine HCl 4 Mg Tablet 4 Mg PO TID Sucralfate 1 Gram Tablet 1 Gm PO QID Ondansetron Odt (Ondansetron) 4 Mg Tab.rapdis 4 Mg SL Q8H PRN Omeprazole 40 Mg Capsule.dr 40 Mg PO DAILY Montelukast Sodium 10 Mg Tablet 10 Mg PO HS Metoprolol Succinate 25 Mg Tab.er.24h 25 Mg PO DAILY Imodium A-D (Loperamide HCl) 2 Mg Capsule 4 Mg PO Q6H PRN Hydrocodone-Acetamin 7.5-325 (Hydrocodone/Acetaminophen) 7.5 Mg-325 Mg Tablet 1 Each PO Q6H PRN MDD 4 TABS Gabapentin 600 Mg Tablet 600 Mg PO TID Ferrous Sulfate 325 Mg (65 Mg Iron) Tablet 325 Mg PO DAILY Docusate Sodium 100 Mg Capsule 100 Mg PO BID PRN Citalopram HBr (Citalopram Hydrobromide) 40 Mg Tablet 40 Mg PO DAILY Atorvastatin Calcium 40 Mg Tablet 40 Mg PO DAILY Alprazolam 1 Mg Tablet 1 Mg PO HS Tylenol Extra Strength (Acetaminophen) 500 Mg Tablet 500 Mg PO Q4H PRN Tramadol HCl 50 Mg Tablet 50-100 Mg PO Q6H PRN Meloxicam 7.5 Mg Tablet 7.5 Mg PO BIDPC Aspirin EC (Aspirin) 81 Mg Tablet.dr 81 Mg PO DAILY Reported Cyanocobalamin Injection (Cyanocobalamin) 1,000 Mcg/Ml Inj 1,000 Mcg IM MONTHLY Vitamin D3 (Cholecalciferol (Vitamin D3)) 50 Mcg (2000 Unit) Capsule 50 Mcg PO DAILY Instructions to patient/family Please see electronic discharge instructions given to patient. Diagnosis/Problems Diagnosis/Problems (1) Status post right hip replacement SHANNAN CALZADA DO Oct 05, 2022 05:43
[2022-10-05 08:00] VITALS: BP 116/55
[2022-10-05] MEDS: VITAMIN D3 25 MCG (1,000 UNITS) TABLET PO SCH (08:41)
[2022-10-05] MEDS: GABAPENTIN 600 MG (NEURONTIN) TAB PO SCH (08:41)
[2022-10-05] MEDS: FERROUS SULF 325 MG (IRON) TAB PO SCH (08:41)
[2022-10-05] MEDS: SUCRALFATE 1 GM (CARAFATE) TAB PO SCH (08:42)
[2022-10-05] MEDS: PANTOPRAZOLE 40 MG (PROTONIX) TAB PO SCH (08:42)
[2022-10-05] MEDS: MELOXICAM 7.5 MG (MOBIC) TABLET PO SCH (08:42)
[2022-10-05] MEDS: DOCUSATE SODIUM 100 MG (COLACE) CAP PO SCH (08:45)
[2022-10-05] MEDS: polyethylene glycoL POWDER 17 GM (MIRALAX) PACK PO SCH (08:45)
[2022-10-05] MEDS: SENNA W/DOCUSATE (SENOKOT S) TABLET PO SCH (08:45)
[2022-10-05 08:46] VITALS: BP 110/55
[2022-10-05 11:57] VITALS: BP 110/55
--- NOTE | 2022-10-05 16:14 | Therapy Team Discharge Summary ---
Therapy Discharge Summary Discharge Recommendations Date of Discharge Oct 05, 2022 at 12:02 Physical Therapy Pt is S/P R MICHELLE anterior approach on 09/27/2022 and admitted to ARU on 09/28/2022. At [facility], the pt was Ind with the 4WW at the [facility]. Pt reports avoiding stairs in the community. Upon PT eval, pt was Min A for bed mobility and CGA for all other aspects of functional mobility with the FWW. PT worked on B LE strength, balance, Ind, endurance, walking, functional mobility, and safety. Pt progressed well with PT and met all set goals. Pt was d/c from [facility] to [facility] (prior living arrangement) on 10/05/2022 with no services, per pt request; d/c from PT at this time. Roll Left to Right (QC): 6 Sit to Lying (QC): 6 Lying to Sitting/Side of Bed(Q: 6 Sit to Stand (QC): 6 Chair/Gfm-az-Qioxe Xfer(QC): 6 Toilet Transfer (QC): 6 Car Transfer (QC): 6 Does the Patient Walk: Yes Mode of Locomotion: Walk Anticipated Mode of Locomotion: Walk Walk 10 feet (QC): 6 Walk 50 ft with 2 Turns(QC): 6 Walk 150 ft (QC): 6 Walking 10ft on uneven surface: 6 Gait Assistive Device: FWW Does the Pt Use a Wheelchair: No Wheel 50 ft with 2 turns (QC): 9 Wheel 150 ft (QC): 9 Type of Wheelchair: N/A #of Steps: 6 1 Step (curb) (QC): 6 4 Steps (QC): 6 12 Steps (QC): 6 Walking Assistive Device: Walker Balance Sitting Static: Good Balance Sitting Dynamic: Good Balance-Standing Static: Fair Picking up an Object (QC): 6 Occupational Therapy Decreased Activ Tolerance Eating (QC): 6 Oral Hygiene (QC): 6 Shower/Bathe Self (QC): 6 Upper Body Dressing (QC): 6 Lower Body Dressing (QC): 6 On/Off Footwear (QC): 6 Toileting Hygiene (QC): 6 PT Snf Goals [employer] Goals PT Snf Goals Time Frame: Oct 06, 2022 Roll Left to Right (QC): 6 (Mod I with functional mobility ) Sit to Lying (QC): 6 (Mod I with functional mobility ) Lying-Sitting on Side/Bed(QC): 6 (Mod I with functional mobility ) Sit to Stand (QC): 6 (Mod I with functional mobility ) Chair/Vmc-ub-Wmqar Xfer(QC): 6 (Mod I with functional mobility ) Toilet/Commode Transfer (QC): 6 (Mod I with functional mobility ) Car Transfer (QC): 6 (Mod I with functional mobility ) Does the Patient Walk: Yes Walk 10 feet (QC): 6 (Mod I with functional mobility ) Walk 10ft-Uneven Surface(QC): 6 (Mod I with functional mobility ) Walk 50ft with 2 Turns (QC): 6 (Mod I with functional mobility ) Walk 150 ft (QC): 6 (Mod I with functional mobility ) Does the Pt use WC or Scooter?: No Wheel 50 feet with 2 turns (QC: 9 Type: N/A Wheel 150 feet: 9 Type: N/A 1 Step (curb) (QC): 6 (Mod I with functional mobility ) 4 Steps (QC): 6 (Mod I with functional mobility ) 12 Steps (QC): 6 (Mod I with functional mobility ) Picking up an Object (QC): 6 (Mod I with functional mobility ) 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 2=Patient will verbalize/demonstrate understanding of assistive devices/modifications for ADL. 3=Patient will improve strength/tolerance for activity to enable patient to perform ADL's. JULIAN MARIE PT Oct 05, 2022 16:14
--- NOTE | 2022-10-06 15:54 | Therapy Team Discharge Summary ---
Therapy Discharge Summary Discharge Recommendations Date of Discharge Oct 05, 2022 at 12:02 Physical Therapy Roll Left to Right (QC): 6 Sit to Lying (QC): 6 Lying to Sitting/Side of Bed(Q: 6 Sit to Stand (QC): 6 Chair/Rcy-rs-Bmoco Xfer(QC): 6 Toilet Transfer (QC): 6 Car Transfer (QC): 6 Does the Patient Walk: Yes Mode of Locomotion: Walk Anticipated Mode of Locomotion: Walk Walk 10 feet (QC): 6 Walk 50 ft with 2 Turns(QC): 6 Walk 150 ft (QC): 6 Walking 10ft on uneven surface: 6 Gait Assistive Device: FWW Does the Pt Use a Wheelchair: No Wheel 50 ft with 2 turns (QC): 9 Wheel 150 ft (QC): 9 Type of Wheelchair: N/A #of Steps: 6 1 Step (curb) (QC): 6 4 Steps (QC): 6 12 Steps (QC): 6 Walking Assistive Device: Walker Balance Sitting Static: Good Balance Sitting Dynamic: Good Balance-Standing Static: Fair Picking up an Object (QC): 6 Occupational Therapy Decreased Activ Tolerance Eating (QC): 6 Oral Hygiene (QC): 6 Shower/Bathe Self (QC): 6 Upper Body Dressing (QC): 6 Lower Body Dressing (QC): 6 On/Off Footwear (QC): 6 Toileting Hygiene (QC): 6 Speech-Language Pathology Pt is S/P R MICHELLE anterior approach on 09/27/2022 and admitted to ARU on 09/28/2022. At [facility], pt did not manage finances or medications. Pt demonstrated difficulty with recall. Pt was placed on consult for speech therapy services. Pt did not require any additional visits. Pt was [facility]c from [facility] to [facility] (prior living arrangement) on 10/05/2022 with no services, per pt request; d/c from at this time. PT [employer] Chair Goals Nursing Home Goals PT Nursing Home Goals Time Frame: Oct 06, 2022 Roll Left to Right (QC): 6 (Mod I with functional mobility ) Sit to Lying (QC): 6 (Mod I with functional mobility ) Lying-Sitting on Side/Bed(QC): 6 (Mod I with functional mobility ) Sit to Stand (QC): 6 (Mod I with functional mobility ) Chair/Rrg-gj-Jihui Xfer(QC): 6 (Mod I with functional mobility ) Toilet/Commode Transfer (QC): 6 (Mod I with functional mobility ) Car Transfer (QC): 6 (Mod I with functional mobility ) Does the Patient Walk: Yes Walk 10 feet (QC): 6 (Mod I with functional mobility ) Walk 10ft-Uneven Surface(QC): 6 (Mod I with functional mobility ) Walk 50ft with 2 Turns (QC): 6 (Mod I with functional mobility ) Walk 150 ft (QC): 6 (Mod I with functional mobility ) Does the Pt use WC or Scooter?: No Wheel 50 feet with 2 turns (QC: 9 Type: N/A Wheel 150 feet: 9 Type: N/A 1 Step (curb) (QC): 6 (Mod I with functional mobility ) 4 Steps (QC): 6 (Mod I with functional mobility ) 12 Steps (QC): 6 (Mod I with functional mobility ) Picking up an Object (QC): 6 (Mod I with functional mobility ) OT [employer] Program Chair Goals Nursing Home Goals Time Frame: Oct 13, 2022 Acute change in mental status: 0 Inattention: 0 Disorganized thinkin Altered level of consciousness: 0 Eating (QC): 6 (met) Oral Hygiene (QC): 6 (met) Toileting Hygiene (QC): 6 (met) Shower/Bathe Self (QC): 6 (met) Upper Body Dressing (QC): 6 (met) Lower Body Dressing (QC): 6 (met) On/Off Footwear (QC): 6 (met) 1=Demonstrate adherence to instructed precautions during ADL tasks. 2=Patient will verbalize/demonstrate understanding of assistive devices/modifications for ADL. 3=Patient will improve strength/tolerance for activity to enable patient to perform ADL's. Alo Vizcarra Speech Therapy Oct 06, 2022 15:54
[2022-10-25] MEDS ORDERED: CYANOCOBALAMIN INJ 1000 MCG/ML IM SCH (09:00)
== END 2022-10-05 12:02 | DRG 560 ==
PROVIDERS: ADMIT Internal Medicine; ATTEND Internal Medicine
DX: Z47.1 Aftercare following joint replacement surgery (principal); D62 Acute posthemorrhagic anemia; Z96.641 Presence of right artificial hip joint; K58.9 Irritable bowel syndrome, unspecified; K59.09 Other constipation; F32.A Depression, unspecified; J45.909 Unspecified asthma, uncomplicated; M19.90 Unspecified osteoarthritis, unspecified site; Z79.899 Other long term (current) drug therapy; Z79.82 Long term (current) use of aspirin
CPT/HCPCS: 36415; 80053; 82607; 83540; 85007; 85025; 85027